=== PATIENT | female | born 1935 | race Caucasian/White ===

== ENCOUNTER → 2017-10-22 | Day surgery (SDC) | payer MEDICARE, BC ==
[~2017-10-22] VITALS: Ht 162.6 cm; Wt 75.0 kg
[~2017-10-22] MED LIST: APIX5TAB PO; CYCLOPENTOLATE HCL 1% OPHT SOLN 2 ML BTL ONE; DENO60P SQ; DEXAMETHASONE SOD PHOS 4 MG/ML VIAL IV ONE; EPINEPHrine HCL PF/SF (1:1000) 1 MG/ML AMP I-OCULAR ONE; EPINEPHrine-Lidocaine/BSS (PF/SF) 4-120 mg/16 mL OPTH SYR LEFT EYE ONE; KETO0.5S2 LEFT EYE; LACTATED RINGER'S 1000 ML IV PRN; LEVO.075 PO; LIDOCAINE HCL 1% PF 5 ML SYRINGE OTHER ONE; METH2.5T PO; METOPROLOL TARTRATE 25 MG TAB PO PRN; ONDANSETRON HCL 4 MG/2 ML VIAL IV PUSH ONE; PHENYLEPH/NS 1000 MCG/10 ML SYR IV ONE; PHENYLEPHRINE HCL 10% OPTH SOLN 5 ML BTL ONE; PRED1SUS LEFT EYE; PROPOFOL 200 MG/20 ML AMP IV ONE; ROCURONIUM INJ 50 MG/5 ML SYRINGE IV PUSH ONE; SODIUM CHLORID 0.9% 500 ML INJ 500 ML IV ONE; SODIUM CHLORID 0.9% 500 ML INJ 500 ML ONE; SUGAMMADEX SODIUM 200 MG/2 ML VIAL IV PUSH ONE; TETRACAINE 0.5% OPTH SOLN 4 ML BTL ONE; TOBRAMYCIN/DEXAMETHASONE OPTH OINT 3.5 GM TUBE ONE; TROPICAMIDE 1% OPHT SOLN 15 ML BTL ONE; VIGA0.5D LEFT EYE; VISCOAT OPHT IRRIG SOLN 0.75 ML SYRINGE ONE; ePHEDrine/NS 25 MG/5 ML SYRINGE IV ONE
[2017-10-22] MEDS: CYCLOPENTOLATE HCL 1% OPHT SOLN 2 ML BTL LEFT EYE SCH ×3 (07:28→07:38)
[2017-10-22] MEDS: TROPICAMIDE 1% OPHT SOLN 15 ML BTL LEFT EYE SCH ×3 (07:28→07:38)
[2017-10-22] MEDS: PHENYLEPHRINE HCL 10% OPTH SOLN 5 ML BTL LEFT EYE SCH ×3 (07:28→07:38)
[2017-10-22] MEDS: TETRACAINE 0.5% OPTH SOLN 4 ML BTL LEFT EYE SCH ×3 (07:28→07:38)
--- NOTE | 2017-10-22 09:07 | PD.OP ---
Operative Report Date of Surgery: Oct 22, 2017 Preoperative Diagnosis: (1) Nuclear sclerotic cataract of left eye Postoperative Diagnosis: (1) Pseudophakia of left eye Procedure: phacoemulsification and intraocular lens implant left eye Anesthesia: General Surgeon: Yesica Valdivia Coin Machine Collector Supervisor(s): none Operation and Findings: Patient was consented for surgery and taken back to the operating room. She was put under general anesthesia and prepped and draped in the usual sterile fashion for ophthalmic surgery. A wire lid speculum was placed in the left eye. A paracentesis incision was created at the 5 o'clock position on the limbus. Vision blue dye, intracameral epishugarcaine, and viscoelastic was injected into the anterior chamber. The main incision was created at the 2 o'clock position on the limbus with a 2.4 mm keratome. A continuous curvilinear capsulorrhexis was made on the anterior lens capsule. Hydrodissection was used to separate the lens from the capsule. Phacoemulsification was used to remove the lens nucleus material. Irrigation and aspiration was used to remove the remaining cortical material. The lens implant ([id number] [id number] SN [id number]) was placed in the capsular bag. Viscoelastic was removed with irrigation and aspiration. The incisions were irrigated and the paracentesis was found to be leaking. A 10-0 nylon suture was placed inferior. Tobradex ointment and a shield were placed on the left eye. The patient was sent to PACU in stable condition. Yesica Valdivia MD Oct 22, 2017 09:07
[2017-10-22 11:15] VITALS: BP 111/55; PULSE 89; RESP 16; TEMP 97.7; O2SAT 94
== END | disposition home or self-care (01) ==
LOC: PHSDC 06:26
PROVIDERS: ATTEND Ophthalmology
DX: H25.12 Age-related nuclear cataract, left eye (principal)
CPT/HCPCS: 00142; 66984; J0171; J1100; J2370; J2405; J3010; J7040; V2632

== ENCOUNTER 2017-10-28 14:01 | Inpatient (IN) | payer MEDICARE, BC ==
[~2017-10-28 14:01] MED LIST changes: -CYCLOPENTOLATE HCL 1% OPHT SOLN 2 ML BTL ONE; -DEXAMETHASONE SOD PHOS 4 MG/ML VIAL IV ONE; -EPINEPHrine HCL PF/SF (1:1000) 1 MG/ML AMP I-OCULAR ONE; -EPINEPHrine-Lidocaine/BSS (PF/SF) 4-120 mg/16 mL OPTH SYR LEFT EYE ONE; -KETO0.5S2 LEFT EYE; -LACTATED RINGER'S 1000 ML IV PRN; -LIDOCAINE HCL 1% PF 5 ML SYRINGE OTHER ONE; -METOPROLOL TARTRATE 25 MG TAB PO PRN; -ONDANSETRON HCL 4 MG/2 ML VIAL IV PUSH ONE; -PHENYLEPH/NS 1000 MCG/10 ML SYR IV ONE; -PHENYLEPHRINE HCL 10% OPTH SOLN 5 ML BTL ONE; -PRED1SUS LEFT EYE; -PROPOFOL 200 MG/20 ML AMP IV ONE; -ROCURONIUM INJ 50 MG/5 ML SYRINGE IV PUSH ONE; -SODIUM CHLORID 0.9% 500 ML INJ 500 ML IV ONE; -SODIUM CHLORID 0.9% 500 ML INJ 500 ML ONE; -SUGAMMADEX SODIUM 200 MG/2 ML VIAL IV PUSH ONE; -TETRACAINE 0.5% OPTH SOLN 4 ML BTL ONE; -TOBRAMYCIN/DEXAMETHASONE OPTH OINT 3.5 GM TUBE ONE; -TROPICAMIDE 1% OPHT SOLN 15 ML BTL ONE; -VIGA0.5D LEFT EYE; -VISCOAT OPHT IRRIG SOLN 0.75 ML SYRINGE ONE; -ePHEDrine/NS 25 MG/5 ML SYRINGE IV ONE
[2017-10-28 14:16] VITALS: BP 124/84; PULSE 99; RESP 24; TEMP 98.2; O2SAT 99
--- NOTE | 2017-10-28 15:39 | RADRPT ---
EXAM DATE/TIME: 10/28/2017 15:19 [place] COMPARISON: CHEST SINGLE AP, March 28, 2016, 5:30. INDICATIONS : Cough and congestion. MEDICAL HISTORY : Carcinoma, lung. SURGICAL HISTORY : Lobectomy. Hysterectomy. RT ORIF 03/28/16 ENCOUNTER: Initial ACUITY: 2 days PAIN SCORE: 0/10 LOCATION: Bilateral chest FINDINGS: There appears to be increased interstitial markings bilaterally suggestive of pulmonary edema versus pneumonia. There is pulmonary venous congestion. The heart size is diffusely enlarged but stable comp ared to the prior exam. No significant pleural effusions are seen. CONCLUSION: 1. Increased interstitial markings bilaterally suggestive of pulmonary edema versus pneumonia. 2. Stable cardiomegaly Subhash Garcia MD on October 28, 2017 at 15:37 Board Certified Radiologist. This report was verified electronically.
--- NOTE | 2017-10-28 15:59 | PD ---
HPI Chief Complaint: Respiratory Symptoms Time Seen by Provider: 15:43 Travel History International Travel<30 days: No Contact w/Intl Traveler<30days: No Traveled to known affect area: No History of Present Illness HPI 82-year-old female with PMH of CHF, NSTEMI, A. fib with RVR, lung CA, right eye blindness presents to the ED by EMS for evaluation of 1 week history of fatigue , shortness of breath, worsening lower extremity edema. The patient states that symptoms onset after she was intubated for cataract surgery last week. She denies fever, chills, chest pain, palpitations, abdominal pain, nausea, vomiting, dysuria. She states that she hasn't had a bowel movement in the last few days but states that this is likely due to low oral intake. She does not use oxygen at home. She is followed by Dr. Vela, PCP. [facility] Past Medical History Arthritis: Yes Asthma: No Autoimmune Disease: No Anxiety: Yes Depression: Yes (when she firkatja moved in july) Cancer: Yes (LUNG CA, SKIN CA) Cardiovascular Problems: Yes (HEART FAILURE, HEART MURMUR, A. FIB, PVD, CHF, [place] (2016)) Chemotherapy: No COPD: No Cerebrovascular Accident: No Diabetes: No Diminished Hearing: Yes (CHEHALIS) Endocrine: Yes (HYPOTHYROIDISM) Gastrointestinal Disorders: Yes (GERD) Genitourinary: Yes (PRIMARY ORDERED BLADDER EVALUATUION PT UNSURE OF REASON) Hepatitis: No Hiatal Hernia: Yes Immune Disorder: No Musculoskeletal: Yes (PSORIATIC/RHEUMATOID/OSTEOARTHRITIS, LOW BACK PAIN & FRACTURES) Neurologic: Yes (TIA, NEUROPATHY (R/T ARTHRTIS)) Psychiatric: No Reproductive: No Respiratory: Yes (LUNG CA; LOBECTOMY L LUNG, COPD) Migraines: Yes (as a younger child but none in adult blum) Radiation Therapy: No Seizures: No Sickle Cell Disease: No Sleep Apnea: No Thyroid Disease: Yes (HYPOTHYROIDISM) ?: Not Past Surgical History Abdominal Surgery: No AICD: No Body Medical Devices: DERRELL IN RIGHT LEG Cardiac Surgery: No Ear Surgery: No Endocrine Surgery: Yes (THYROIDECTOMY) Eye Surgery: No Genitourinary Surgery: No Gynecologic Surgery: Yes (HYSTERECTOMY) Hysterectomy: Yes Joint Replacement: No Oral Surgery: No Pacemaker: No Thoracic Surgery: Yes (LOBECTOMY L LUNG CA) Other Surgery: Yes (SKIN CANCER REMOVAL) Social History Alcohol Use: No Tobacco Use: No Substance Use: No Allergies-Medications (Allergen,Severity, Reaction): Coded Allergies: Sulfa (Sulfonamide Antibiotics) (Verified Allergy, Severe, Hives, 10/28/17) bacitracin (Verified Allergy, Severe, RASH-PT DOESN'T REMEMBER, 10/28/17) diatrizoate meglumine (Verified Allergy, Severe, HIVES, 10/28/17) gadobenic acid (Verified Allergy, Severe, HIVES, 10/28/17) gadodiamide (Verified Allergy, Severe, HIVES, 10/28/17) gadoteridol (Verified Allergy, Severe, HIVES, 10/28/17) gramicidin D (Verified Allergy, Severe, RASH, 10/28/17) iodixanol (Verified Allergy, Severe, HIVES, 10/28/17) iohexol (Verified Allergy, Severe, HIVES, 10/28/17) neomycin (Verified Allergy, Severe, RASH, 10/28/17) penicillin G (Verified Allergy, Severe, RASH HIVES, 10/28/17) polymyxin B (Verified Allergy, Severe, RASH, 10/28/17) NSAIDS (Non-Steroidal Anti-Inflamma (Verified Adverse Reaction, Severe, R/ T HIATAL HERNIA, 10/28/17) Reported Meds & Prescriptions Reported Meds & Active Scripts Active Reported Eliquis (Apixaban) 5 Mg Tab 5 Mg PO BID Prolia Inj (Denosumab) 60 Mg/Ml Inj 60 Mg SQ Q180D Methotrexate 2.5 Mg Tab 2.5 Mg PO Q7D Synthroid (Levothyroxine Sodium) 75 Mcg Tab 75 Mcg PO DAILY Review of Systems Except as stated in HPI: all other systems reviewed are Neg Physical Exam Narrative GENERAL: Well-nourished, well-developed white female in no acute distress. SKIN: Focused skin assessment warm/dry. HEAD: Normocephalic. EYES: No scleral icterus. No injection or drainage. NECK: Supple, trachea midline. No JVD or lymphadenopathy. CARDIOVASCULAR: Irregularly irregular rate and rhythm without murmurs, gallops, or rubs. RESPIRATORY: Breath sounds with rhonchi bilaterally. No accessory muscle use. GASTROINTESTINAL: Abdomen soft, non-tender, nondistended. Active bowel sounds. MUSCULOSKELETAL: No cyanosis. 2+ pitting edema to the knees bilaterally. BACK: Nontender without obvious deformity. No CVA tenderness. Data Data Last Documented VS Vital Signs Date Time Temp Pulse Resp B/P (MAP) Pulse Ox O2 Delivery O2 Flow Rate FiO2 10/28/17 18:42 97 Nasal Cannula 2.00 10/28/17 18:42 80 16 133/62 (85) 10/28/17 14:16 98.2 Orders Orders Complete Blood Count With Diff (10/28/17 14:54) Basic Metabolic Panel (Bmp) (10/28/17 14:54) Chest, Pa & Lat (10/28/17 14:54) Iv Access Insert/Monitor (10/28/17 14:54) Ecg Monitoring (10/28/17 14:54) Oxygen Administration (10/28/17 14:54) Oximetry (10/28/17 14:54) B-Type Natriuretic Peptide (10/28/17 15:51) Act Partial Throm Time (Ptt) (10/28/17 15:51) Prothrombin Time / Inr (Pt) (10/28/17 15:51) Magnesium (Mg) (10/28/17 15:51) Ckmb (Isoenzyme) Profile (10/28/17 15:51) Troponin I (10/28/17 15:51) Urinalysis - C+S If Indicated (10/28/17 15:51) Electrocardiogram (10/28/17 15:51) Sodium Chloride 0.9% Flush (Ns Flush) (10/28/17 16:00) Albuterol-Ipratropium Neb (Duoneb Neb) (10/28/17 16:00) CKMB (10/28/17 14:58) CKMB% (10/28/17 14:58) Admit Order (Ed Use Only) (10/28/17 19:23) Furosemide Inj (Lasix Inj) (10/28/17 19:30) Labs Laboratory Tests Test 10/28/17 14:58 White Blood Count 7.1 TH/MM3 Red Blood Count 4.91 MIL/MM3 Hemoglobin 16.6 GM/DL Hematocrit 48.1 % Mean Corpuscular Volume 97.9 FL Mean Corpuscular Hemoglobin 33.7 PG Mean Corpuscular Hemoglobin Concent 34.5 % Red Cell Distribution Width 17.5 % Platelet Count 236 TH/MM3 Mean Platelet Volume 8.8 FL Neutrophils (%) (Auto) 71.0 % Lymphocytes (%) (Auto) 13.5 % Monocytes (%) (Auto) 11.9 % Eosinophils (%) (Auto) 2.9 % Basophils (%) (Auto) 0.7 % Neutrophils # (Auto) 5.0 TH/MM3 Lymphocytes # (Auto) 1.0 TH/MM3 Monocytes # (Auto) 0.8 TH/MM3 Eosinophils # (Auto) 0.2 TH/MM3 Basophils # (Auto) 0.0 TH/MM3 CBC Comment DIFF FINAL Differential Comment Blood Urea Nitrogen 21 MG/DL Creatinine 0.90 MG/DL Random Glucose 82 MG/DL Calcium Level 10.5 MG/DL Sodium Level 135 MEQ/L Potassium Level 5.6 MEQ/L Chloride Level 106 MEQ/L Carbon Dioxide Level 23.0 MEQ/L Anion Gap 6 MEQ/L Estimat Glomerular Filtration Rate 60 ML/MIN Magnesium Level 1.9 MG/DL Total Creatine Kinase 147 U/L Creatine Kinase MB 4.2 NG/ML Troponin I 0.06 NG/ML B-Type Natriuretic Peptide 481 PG/ML MDM Medical Decision Making Medical Screen Exam Complete: Yes Emergency Medical Condition: Yes Differential Diagnosis CHF exacerbation versus pneumonia versus GI versus ACS versus other Narrative Course 82-year-old female with PMH of CHF, NSTEMI, A. fib with RVR, lung CA, right eye blindness presents to the ED by EMS for evaluation of 1 week history of fatigue , shortness of breath, worsening lower extremity edema. The patient states that symptoms onset after she was intubated for cataract surgery last week. She denies fever, chills, chest pain, palpitations, abdominal pain, nausea, vomiting, dysuria. She does not use oxygen at home. She is followed by Dr. Vela, PCP. Patient afebrile, pulse 99, respiratory rate 24, O2 sats 99% on room air on presentation. On exam this is a pleasant obese white female in no acute distress. She is speaking in short sentences. She does have coarse breath sounds bilaterally and 2+ pitting edema to the knees bilaterally. EKG rate 96, A. fib. LVH. No acute ST changes. Reviewed by Dr. Cummings. CXR: Increased interstitial markings bilaterally suggestive of pulmonary edema versus pneumonia. Stable cardiomegaly. Cardiac enzymes: CK-MB 4.2. Troponin 0.06. BNP 481. 3 14:58 Calcium Level 10.5 H Patient was administered 40 mg of Lasix IV. I discussed the results of the workup with the patient and her family. They're agreeable to admission. Discussed the patient with Dr. Tucker who agrees to accept the patient to the medicine service. Please see medicine notes for disposition. Janice Murphy Oct 28, 2017 15:59
[2017-10-28] MEDS ORDERED: RESP: ALBUTEROL 2.5 MG/IPRATROPIUM 0.5 MG NEB (SCH) INH ONE (16:00)
[2017-10-28] MEDS ORDERED: SODIUM CHLORIDE 0.9% FLUSH 10 ML FLUSH IVF PRN (16:00)
[2017-10-28 16:17] LABS: CALCIUM 10.5 MG/DL (8.5-10.1); CREATININE 0.9 MG/DL (0.50-1.00)
[2017-10-28 16:21] LABS: BASOPHIL % 0.7 % (0.0-2.0); EOSINOPHIL # 0.2 TH/MM3 (0-0.4); EOSINOPHIL % 2.9 % (0.0-4.0); HEMATOCRIT 48.1 % (35.0-46.0); HEMOGLOBIN 16.6 GM/DL (11.6-15.3); LYMPH % 13.5 % (9.0-44.0); MEAN CELL VOLUME 97.9 FL (80.0-100.0); MEAN CORPUSCULAR HEMOGLOBIN 33.7 PG (27.0-34.0); MEAN CORPUSCULAR HGB CONC 34.5 % (32.0-36.0); MEAN PLATELET VOLUME 8.8 FL (7.0-11.0); MONO % 11.9 % (0.0-8.0); MONOCYTE # 0.8 TH/MM3 (0-0.9); PLATELET COUNT 236 TH/MM3 (150-450); RED BLOOD COUNT 4.91 MIL/MM3 (4.00-5.30); RED CELL DISTRIBUTION WIDTH 17.5 % (11.6-17.2); WHITE BLOOD COUNT 7.1 TH/MM3 (4.0-11.0)
[2017-10-28 17:36] LABS: MAGNESIUM 1.9 MG/DL (1.5-2.5)
[2017-10-28 17:38] LABS: TROPONIN I 0.06 NG/ML (0.02-0.05)
[2017-10-28 18:42] VITALS: BP 133/62; PULSE 80; RESP 16; O2SAT 100
[2017-10-28] MEDS ORDERED: FUROSEMIDE 40 MG/4 ML VIAL IV PUSH ONE (19:30)
[2017-10-28 19:56] VITALS: BP 133/62; PULSE 88; RESP 24; O2SAT 96
[2017-10-28] MEDS ORDERED: SODIUM CHLORIDE 0.9% FLUSH 10 ML FLUSH IV FLUSH PRN (20:30)
[2017-10-28 21:39] VITALS: BP 135/58; PULSE 100; RESP 16; TEMP 98.6; O2SAT 95
[2017-10-28] MEDS ORDERED: VIGA0.5D LEFT EYE (21:55)
[2017-10-28] MEDS ORDERED: PRED1SUS LEFT EYE (21:58)
[2017-10-28] MEDS ORDERED: KETO0.5S2 LEFT EYE (21:59)
--- NOTE | 2017-10-28 22:14 | HHI.HP ---
[facility] Maricruz Vela MD Admission Diagnosis CHF exacerbation, elevated troponin Diagnoses: Travel History International Travel<30 Days: No Contact w/Intl Traveler <30 Da: No Traveled to Known Affected Are: No History of Present Illness 82-year-old female with a past medical history significant for history of lung cancer, rheumatoid and psoriatic arthritis, hypothyroidism, atrial fibrillation anticoagulated on Eliquis and history of NSTEMI presents to the emergency department for the evaluation of increasing bilateral lower extremity edema with associated shortness of breath. The patient reports she had general anesthesia for a cataract surgery on Friday and since that time she has been having these symptoms. She also endorses an associated nonproductive cough. She was seen in the emergency department yesterday at [facility] where several x-rays were done but she reports she was not given any medications or prescriptions. Last echo done in 2015 showed an EF of 50-60%. The patient denies any chest pain. Denies nausea/vomiting/diarrhea. Denies increasing weakness or lateralizing signs/symptoms. Review of Systems Except as stated in HPI: all other systems reviewed are Neg Past Family Social History Past Medical History History of lung cancer Rheumatoid arthritis Psoriatic arthritis Hypothyroidism History of NSTEMI A. fib anticoagulated on Eliquis Past Surgical History Left lobectomy for lung cancer Bilateral oophorectomy Left cataract surgery Reported Medications Reported Meds & Active Scripts Active Reported Ketorolac Opth Drops 0.5% Drops 1 Drop LEFT EYE QID 28 Days Pred Forte Opth 1% (Prednisolone Acetate Opth 1%) 1% Susp 1 Drop LEFT EYE QID 28 Days Vigamox Opth Drops (Moxifloxacin Opth Drops) 0.5 % Soln 1 Drop LEFT EYE QID Eliquis (Apixaban) 5 Mg Tab 5 Mg PO BID Prolia Inj (Denosumab) 60 Mg/Ml Inj 60 Mg SQ Q180D Methotrexate 2.5 Mg Tab 2.5 Mg PO Q7D Synthroid (Levothyroxine Sodium) 75 Mcg Tab 75 Mcg PO DAILY Allergies: Coded Allergies: Sulfa (Sulfonamide Antibiotics) (Verified Allergy, Severe, Hives, 3/6/18) bacitracin (Verified Allergy, Severe, RASH-PT DOESN'T REMEMBER, 10/28/17) diatrizoate meglumine (Verified Allergy, Severe, HIVES, 10/28/17) gadobenic acid (Verified Allergy, Severe, HIVES, 10/28/17) gadodiamide (Verified Allergy, Severe, HIVES, 10/28/17) gadoteridol (Verified Allergy, Severe, HIVES, 10/28/17) gramicidin D (Verified Allergy, Severe, RASH, 10/28/17) iodixanol (Verified Allergy, Severe, HIVES, 10/28/17) iohexol (Verified Allergy, Severe, HIVES, 10/28/17) neomycin (Verified Allergy, Severe, RASH, 10/28/17) penicillin G (Verified Allergy, Severe, RASH HIVES, 10/28/17) polymyxin B (Verified Allergy, Severe, RASH, 10/28/17) NSAIDS (Non-Steroidal Anti-Inflamma (Verified Adverse Reaction, Severe, R/ T HIATAL HERNIA, 10/28/17) Family History Mother with CAD/DM Social History Quit smoking 13 years ago. Denies alcohol or illicit drugs. Physical Exam Vital Signs Vital Signs Date Time Temp Pulse Resp B/P (MAP) Pulse Ox O2 Delivery O2 Flow Rate FiO2 10/28/17 21:39 98.6 100 16 135/58 (83) 95 10/28/17 21:16 10/28/17 19:56 88 24 133/62 (85) 96 Nasal Cannula 2.00 10/28/17 18:42 97 Nasal Cannula 2.00 10/28/17 18:42 80 16 133/62 (85) 100 Nasal Cannula 2.00 10/28/17 18:42 80 16 133/62 (85) 100 Nasal Cannula 2.00 10/28/17 14:19 96 Nasal Cannula 2.00 10/28/17 14:16 98.2 99 24 124/84 (97) 99 Physical Exam GENERAL: female sitting up in bed SKIN: No rashes, ecchymoses or lesions. Cool and dry. HEAD: Atraumatic. Normocephalic. No temporal or scalp tenderness. EYES: Pupils equal round and reactive. Extraocular motions intact. No scleral icterus. No injection or drainage. ENT: Nose without bleeding, purulent drainage or septal hematoma. Throat without erythema, tonsillar hypertrophy or exudate. Uvula midline. Airway patent. NECK: Trachea midline. No JVD or lymphadenopathy. Supple, nontender, no meningeal signs. CARDIOVASCULAR: Regular rate and rhythm without murmurs, gallops, or rubs. RESPIRATORY: Breath sounds equal bilaterally. Positive rhonchi. Use of accessory muscles. GASTROINTESTINAL: Abdomen soft, non-tender, nondistended. No hepato-splenomegaly , or palpable masses. No guarding. MUSCULOSKELETAL: 2+ pitting edema bilaterally. No calf tenderness. NEUROLOGICAL: Awake and alert. Cranial nerves II through XII intact. Motor and sensory grossly within normal limits. Normal speech. Laboratory Laboratory Tests Test 10/28/17 14:58 10/28/17 21:36 White Blood Count 7.1 Red Blood Count 4.91 Hemoglobin 16.6 Hematocrit 48.1 Mean Corpuscular Volume 97.9 Mean Corpuscular Hemoglobin 33.7 Mean Corpuscular Hemoglobin Concent 34.5 Red Cell Distribution Width 17.5 Platelet Count 236 Mean Platelet Volume 8.8 Neutrophils (%) (Auto) 71.0 Lymphocytes (%) (Auto) 13.5 Monocytes (%) (Auto) 11.9 Eosinophils (%) (Auto) 2.9 Basophils (%) (Auto) 0.7 Neutrophils # (Auto) 5.0 Lymphocytes # (Auto) 1.0 Monocytes # (Auto) 0.8 Eosinophils # (Auto) 0.2 Basophils # (Auto) 0.0 CBC Comment DIFF FINAL Differential Comment Blood Urea Nitrogen 21 Creatinine 0.90 Random Glucose 82 Calcium Level 10.5 Sodium Level 135 Potassium Level 5.6 Chloride Level 106 Carbon Dioxide Level 23.0 Anion Gap 6 Estimat Glomerular Filtration Rate 60 Magnesium Level 1.9 Total Creatine Kinase 147 Creatine Kinase MB 4.2 Troponin I 0.06 B-Type Natriuretic Peptide 481 Result Diagram: 10/28/17 1458 10/28/17 1458 Caprini VTE Risk Assessment Caprini VTE Risk Assessment: Mod/High Risk (score >= 2) Caprini Risk Assessment Model Point Value = 1 Point Value = 2 Point Value = 3 Point Value = 5 Age 41-60 Minor surgery BMI > 25 kg/m2 Swollen legs Varicose veins or History of unexplained or recurrent spontaneous Oral contraceptives or hormone replacement Sepsis (< 1 month) Serious lung disease, including pneumonia (< 1 month) Abnormal pulmonary function Acute myocardial infarction Congestive heart failure (< 1 month) History of inflammatory bowel disease Medical patient at bed rest Age 61-74 Arthroscopic surgery Major open surgery (> 45 min) Laparoscopic surgery (> 45 min) Malignancy Confined to bed (> 72 hours) Immobilizing plaster cast Central venous access Age >= 75 History of VTE Family history of VTE Factor V Leiden Prothrombin [id number] Lupus anticoagulant Anticardiolipin antibodies Elevated serum homocysteine Heparin-induced thrombocytopenia Other congenital or acquired thrombophilia Stroke (< 1 month) Elective arthroplasty Hip, pelvis, or leg fracture Acute spinal cord injury (< 1 month) Prophylaxis Regimen Total Risk Factor Score Risk Level Prophylaxis Regimen 0-1 Low Early ambulation 2 Moderate Order ONE of the following: *Sequential Compression Device (SCD) *Heparin 5000 units SQ BID 3-4 Higher Order ONE of the following medications: *Heparin 5000 units SQ TID *Enoxaparin/Lovenox 40 mg SQ daily (WT < 150 kg, CrCl > 30 mL/min) *Enoxaparin/Lovenox 30 mg SQ daily (WT < 150 kg, CrCl > 10-29 mL/min) *Enoxaparin/Lovenox 30 mg SQ BID (WT < 150 kg, CrCl > 30 mL/min) AND/OR *Sequential Compression Device (SCD) 5 or more Highest Order ONE of the following medications: *Heparin 5000 units SQ TID (Preferred with Epidurals) *Enoxaparin/Lovenox 40 mg SQ daily (WT < 150 kg, CrCl > 30 mL/min) *Enoxaparin/Lovenox 30 mg SQ daily (WT < 150 kg, CrCl > 10-29 mL/min) *Enoxaparin/Lovenox 30 mg SQ BID (WT < 150 kg, CrCl > 30 mL/min) AND *Sequential Compression Device (SCD) Assessment and Plan Assessment and Plan Assessment/plan: 1. Shortness of breath/bilateral lower extremity edema Patient does not report history of CHF however last echo was in 2016 BNP elevated at 481 Chest x-ray significant for pulmonary vascular congestion, personally reviewed IV Lasix Repeat echo pending IF echo shows new onset CHF, patient would benefit from cardiology consult 2. Elevated troponin EKG significant for atrial fibrillation without ST segment elevation or depression, personally reviewed Troponin 0.06 ACS rule out pending; serial troponin/EKGs 3. Atrial fibrillation Holding Eliquis until ACS rule out complete 4. Rheumatoid/psoriatic arthritis Patient takes methotrexate weekly 5. Hypothyroidism Continue home Synthroid FEN NPO Electrolytes: Patient with hyperkalemia however sample hemolyzed, follow-up BMP Heparin Physician Certification 2 Midnight Certification Type: Admission for Inpatient Services Order for Inpatient Services The services are ordered in accordance with Medicare regulations or non- Medicare payer requirements, as applicable. In the case of services not specified as inpatient-only, they are appropriately provided as inpatient services in accordance with the 2-midnight benchmark. Estimated LOS (days): 2 2 days is the estimated time the patient will need to remain in the hospital, assuming treatment plan goals are met and no additional complications. Post-Hospital Plan: Not yet determined Shawna Tuckre MD Oct 28, 2017 22:14
[2017-10-28 22:26] LABS: AUTOMATED NEUTROPHIL # 6.1 TH/MM3 (1.8-7.7); BASOPHIL # 0.1 TH/MM3 (0-0.2); BASOPHIL % 0.7 % (0.0-2.0); EOSINOPHIL # 0.2 TH/MM3 (0-0.4); EOSINOPHIL % 2.1 % (0.0-4.0); HEMATOCRIT 47.7 % (35.0-46.0); HEMOGLOBIN 16.4 GM/DL (11.6-15.3); LYMPH % 10.4 % (9.0-44.0); LYMPHOCYTE # 0.8 TH/MM3 (1.0-4.8); MEAN CELL VOLUME 99.2 FL (80.0-100.0); MEAN CORPUSCULAR HEMOGLOBIN 34.1 PG (27.0-34.0); MEAN CORPUSCULAR HGB CONC 34.4 % (32.0-36.0); MEAN PLATELET VOLUME 8.8 FL (7.0-11.0); MONO % 8.8 % (0.0-8.0); MONOCYTE # 0.7 TH/MM3 (0-0.9); PLATELET COUNT 234 TH/MM3 (150-450); RED BLOOD COUNT 4.81 MIL/MM3 (4.00-5.30); RED CELL DISTRIBUTION WIDTH 17.1 % (11.6-17.2); WHITE BLOOD COUNT 7.8 TH/MM3 (4.0-11.0)
[2017-10-28 22:27] LABS: TROPONIN I 0.08 NG/ML (0.02-0.05)
[2017-10-28] MEDS: SODIUM CHLORIDE 0.9% FLUSH 10 ML FLUSH IV FLUSH SCH (22:37)
[2017-10-28] MEDS: RESP: ALBUTEROL 2.5 MG/IPRATROPIUM 0.5 MG NEB (PRN) NEB (22:55)
[2017-10-28 23:04] LABS: INTERNATIONAL NORMALIZED RATIO 1.2 RATIO; PROTHROMBIN TIME - PATIENT 12.6 SEC (9.8-11.6)
[2017-10-29] VITALS (11 sets, daily range): BP systolic 113–128; BP diastolic 58–85; PULSE 77–110; RESP 14–24; TEMP 97.4–98.6; O2SAT 95–99
[2017-10-29] MEDS: RESP: ALBUTEROL 2.5 MG/IPRATROPIUM 0.5 MG NEB (PRN) NEB (04:02)
[2017-10-29 04:24] LABS: TROPONIN I 0.09 NG/ML (0.02-0.05)
[2017-10-29 04:28] LABS: BICARBONATE 27.3 MEQ/L (21.0-32.0); CALCIUM 10.4 MG/DL (8.5-10.1); CREATININE 0.96 MG/DL (0.50-1.00)
[2017-10-29] MEDS: LEVOTHYROXINE SODIUM 75 MCG TAB PO SCH (05:26)
[2017-10-29] MEDS: NYSTATIN 100,000 U/GM PWD 15 GM BTL TOPICAL SCH ×3 (05:26→22:37)
[2017-10-29] MEDS: HEPARIN SODIUM - SQ 10,000 UNITS/ML VIAL SQ SCH ×2 (05:27→13:37)
[2017-10-29] MEDS ORDERED: KETOROLAC TROMETHAMINE 0.5% OPHT SOLN 5 ML BTL LEFT EYE SCH (09:00)
[2017-10-29] MEDS: FUROSEMIDE 40 MG/4 ML VIAL IVP SCH ×2 (10:16→18:39)
[2017-10-29] MEDS: SODIUM CHLORIDE 0.9% FLUSH 10 ML FLUSH IV FLUSH SCH ×2 (10:17→22:32)
[2017-10-29] MEDS: MOXIFLOXACIN 0.5% OPHT SOLN 3 ML BTL LEFT EYE SCH ×4 (10:17→22:37)
[2017-10-29] MEDS: prednisoLONE ACETATE 1% OPHT SUSP 5 ML BTL LEFT EYE SCH ×4 (10:18→22:37)
--- NOTE | 2017-10-29 10:57 | HHI.PR ---
Subjective Remarks Follow-up shortness of breath and bilateral lower extremity edema. Still with shortness of breath denies chest pain. Discussed with RN Objective Vitals Vital Signs Date Time Temp Pulse Resp B/P (MAP) Pulse Ox O2 Delivery O2 Flow Rate FiO2 10/29/17 07:09 97.7 96 22 128/58 (81) 96 10/29/17 05:13 98 Nasal Cannula 2.00 10/29/17 04:26 98.2 77 16 113/72 (86) 97 10/29/17 04:00 109 10/29/17 01:18 98.6 98 14 117/63 (81) 99 10/28/17 21:39 98.6 100 16 135/58 (83) 95 10/28/17 21:16 10/28/17 19:56 88 24 133/62 (85) 96 Nasal Cannula 2.00 10/28/17 18:42 97 Nasal Cannula 2.00 10/28/17 18:42 80 16 133/62 (85) 100 Nasal Cannula 2.00 10/28/17 18:42 80 16 133/62 (85) 100 Nasal Cannula 2.00 10/28/17 14:19 96 Nasal Cannula 2.00 10/28/17 14:16 98.2 99 24 124/84 (97) 99 I/O 10/28/17 10/28/17 10/28/17 10/29/17 10/29/17 10/29/17 07:00 15:00 23:00 07:00 15:00 23:00 Intake Total 35 ml Balance 35 ml Intake Oral 35 ml # Voids 7 Result Diagram: 10/28/17 2136 10/29/17 0330 Imaging Last Impressions Chest X-Ray 10/28/17 1454 Signed Impressions: Service Date/Time: Saturday, October 28, 2017 15:19 - CONCLUSION: 1. Increased interstitial markings bilaterally suggestive of pulmonary edema versus pneumonia. 2. Stable cardiomegaly Subhash Garcia MD Objective Remarks GENERAL: female sitting up in bed SKIN: No rashes, ecchymoses or lesions. Cool and dry. CARDIOVASCULAR: Irregularly irregular RESPIRATORY: Breath sounds equal bilaterally. Expiratory wheezes noted GASTROINTESTINAL: Abdomen soft, non-tender, nondistended. No guarding. MUSCULOSKELETAL: 2+ pitting edema bilaterally. No calf tenderness. NEUROLOGICAL: Awake and alert. Cranial nerves II through XII intact. Motor and sensory grossly within normal limits. Normal speech. Procedures none A/P Problem List: (1) COPD exacerbation ICD Code: J44.1 - Chronic obstructive pulmonary disease with (acute) exacerbation Assessment and Plan 1. Shortness of breath/bilateral lower extremity edema likely from acute onset diastolic heart failure. EF 65% but with LVH. Continue IV diuresis with Lasix 2. Elevated troponin. Denies chest pain. Cardiology has been consulted 3. Atrial fibrillation with RVR. Respiratory blood pressure started to resume Eliquis 4. Rheumatoid/psoriatic arthritis. Patient takes methotrexate weekly 5. Hypothyroidism. Continue home Synthroid follow-up TSH 6. Recent left cataract surgery with implants. Continue eyedrops and consult patient's segment assembler DVT prophylaxis with Wes Villareal MD Oct 29, 2017 10:57
[2017-10-29] MEDS: methylPREDNISolone SOD SUCC 40 MG/1 ML VIAL IV PUSH SCH ×3 (13:37→22:32)
[2017-10-29] MEDS: KETOROLAC TROMETHAMINE 0.5% LEFT EYE SCH ×3 (13:38→22:37)
[2017-10-29] MEDS: RESP: ALBUTEROL 2.5 MG/IPRATROPIUM 0.5 MG NEB (SCH) NEB ×3 (13:55→19:10)
--- NOTE | 2017-10-29 14:03 | EKG ---
Date Performed: 10/28/2017 Time Performed: 17:59:29 PTAGE: 82 years EKG: ATRIAL FIBRILLATION POSSIBLE LEFT VENTRICULAR HYPERTROPHY ST DEVIATION AND MODERATE T-WAVE ABNORMALITY, CONSIDER LATERAL ISCHEMIA LVH BY VOLTAGE ABNORMAL ECG PREVIOUS TRACING : 03/30/2016 13.08 DOCTOR: Rodrigo Deleon Interpretating Date/Time 10/29/2017 14:01:28
--- NOTE | 2017-10-29 14:39 | ECHRPT ---
Indication: HEART FAILURE CONCLUSIONS Normal left ventricular size. The left ventricular systolic function is hyperdynamic with an estimated ejection fraction in the ra nge of 65- 70%. Moderate concentric left ventricular hypertrophy. The left atrial size is severely dilated. The right atrial size is jnlafgmj-ek-ydskreho dilated. The interatrial septum not well visualized. The aortic root and proximal ascending aorta are not well visualized. Mild mitral valve regurgitation. Mitral annular calcification is present. Trace aortic valve regurgitation. There is mild-tomoderate tricuspid regurgitation. The estimated pulmonary arterial pressure is 38.2 mmHg. Trivial pulmonary valve regurgitation. The inferior vena cava was not well visualized. BP: 128 / 58 HR: 96 Rhythm: Atrial fibrillation, Atrial flut ter MEASUREMENTS (Male / Female) Normal Values Technical Quality:Fair 2D ECHO LV Diastolic Diameter PLAX 4.2 cm 4.2 - 5.9 / 3.9 - 5.3 cm LV Systolic Diameter PLAX 2.9 cm IVS Diastolic Thickness 2.0 cm 0.6 - 1.0 / 0.6 - 0.9 cm LVPW Diastolic Thickness 1.1 cm 0.6 - 1.0 / 0.6 - 0.9 cm LV Relative Wall Thickness 0.8 RV Internal Dim ED PLAX 3.3 cm LVOT Diameter 2.1 cm Aortic Root Diameter 3.1 cm LA Systolic Diameter LX 5.6 cm 3.0 - 4.0 / 2.7 - 3.8 cm M-MODE AV Cusp Separation MM 1.8 cm DOPPLER AV Peak Velocity 177.7 cm/s AV Peak Gradient 12.6 mmHg AV Mean Gradient 8.0 mmHg AV Velocity Time Integral 25.6 cm LVOT Peak Velocity 131.4 cm/s LVOT Peak Gradient 6.9 mmHg LVOT Velocity Time Integral 18.0 cm AV Area Cont Eq vti 2.4 cm AV Area Cont Eq pk 2.6 cm Mitral E Point Velocity 83.7 cm/s LV E' Lateral Velocity 11.8 cm/s Mitral E to LV E' Lateral Ratio 7.1 LV E' Septal Velocity 4.5 cm/s Mitral E to LV E' Septal Ratio 18.5 TR Peak Velocity 265.5 cm/s TR Peak Gradient 28.2 mmHg Right Atrial Pressure 10.0 mmHg Pulmonary Artery Systolic Pressu 38.2 mmHg Right Ventricular Systolic Press 38.2 mmHg PV Peak Velocity 73.9 cm/s PV Peak Gradient 2.2 mmHg FINDINGS LEFT VENTRICLE Normal left ventricular size. The left ventricular systolic function is hyperdynamic with an estimated ejection fraction in the ra nge of 65- 70%. Moderate concentric left ventricular hypertrophy. RIGHT VENTRICLE Normal right ventricular size and systolic function. LEFT ATRIUM The left atrial size is severely dilated. RIGHT ATRIUM The right atrial size is kqtvhxal-ne-vnnjprtb dilated. ATRIAL SEPTUM The interatrial septum not well visualized. AORTA The aortic root and proximal ascending aorta are not well visualized. MITRAL VALVE Mild mitral valve regurgitation. Mitral annular calcification is present. AORTIC VALVE Trace aortic valve regurgitation. TRICUSPID VALVE There is mild-tomoderate tricuspid regurgitation. The estimated pulmonary arterial pressure is 38.2 mmHg. PULMONARY VALVE Trivial pulmonary valve regurgitation. VESSELS The inferior vena cava was not well visualized. PERICARDIUM No pericardial effusion. Will Cooper MD (Electronically Signed) Final Date:29 October 2017 14:38
--- NOTE | 2017-10-29 14:49 | MB ---
cc: Will Cooper MD DATE OF CONSULT: REASON FOR CONSULTATION: Evaluation of shortness of breath. HISTORY OF PRESENT ILLNESS: This is an 82-year-old female, followed by my colleague, Dr. Massey. She has a history of COPD, having been a heavy smoker in the past, which she quit in 2003. She comes in now with increasing bilateral lower extremity edema and worsening shortness of breath. She had cataract surgery on Friday. She does not have any anginal pain. She has had significant weight gain. PAST MEDICAL HISTORY: Includes history of lung cancer, rheumatoid arthritis, psoriatic arthritis, hypothyroidism, chronic AFib, on Eliquis, previous left lobectomy, bilateral oophorectomy, and left cataract surgery. MEDICATIONS: Include Eliquis 5 mg p.o. b.i.d. She is not on any medications for rate control. ALLERGIES: HER ALLERGY LIST IS EXTENSIVE AND IS CHARTED. FAMILY HISTORY: Positive for heart disease and diabetes. SOCIAL HISTORY: Quit smoking 13 years ago. REVIEW OF SYSTEMS: Negative for bleeding. PHYSICAL EXAMINATION: GENERAL: Shows a morbidly obese woman who appears her stated age. She is slightly using accessory muscles. VITAL SIGNS: Are charted. On telemetry, her ventricular rate is not optimally controlled. On minimal activity, her heart rate is greater than 130, at rest it is 105. HEENT: Unremarkable. NECK: Neck veins are difficult to discern. CHEST: Shows rhonchi and some wheezes bilaterally and using accessory muscles. CARDIAC: S1 and S2. Irregular rate and rhythm. ABDOMEN: Obese. EXTREMITIES: Reveal marked lower extremity edema. NEUROLOGIC: She is alert. LABORATORY STUDIES: Labs show that she is polycythemic with a hematocrit of 47.7, creatinine is 0.96. Troponins are 0.06, 0.08, and 0.09, which are nonspecific. Her chest x-ray is showing increased markings suggestive of CHF. EKG shows AFib with a controlled rate, LVH, LV strain pattern. IMPRESSION: Suspect acute diastolic congestive heart failure. Diuretic has been initiated. Her atrial fibrillation does not seem to be optimally controlled. RECOMMENDATIONS: I am adding potassium supplements. I am adding a low-dose diltiazem for rate control. We will review her echo later today. She is on IV diuretics. I have added potassium repletion and repeat labs in the morning. Further therapy to be determined. MD DWIGHT Torres/MIRIAM , 02:21 PM , 02:48 PM
[2017-10-29] MEDS: DILTIAZEM HCL 30 MG TAB PO SCH ×2 (17:24→17:25)
[2017-10-29] MEDS: POTASSIUM CHLORIDE 20 MEQ CONTROLLED RELEASE TAB PO SCH ×2 (17:25→22:33)
[2017-10-29] MEDS ORDERED: APIXABAN 5 MG TABLET PO SCH (21:00)
[2017-10-29] MEDS: APIXABAN 5 MG TABLET PO SCH (22:33)
[2017-10-30] VITALS (11 sets, daily range): BP systolic 112–128; BP diastolic 56–74; PULSE 59–102; RESP 16–24; TEMP 97.4–98.7; O2SAT 94–97
[2017-10-30] MEDS: RESP: ALBUTEROL 2.5 MG/IPRATROPIUM 0.5 MG NEB (PRN) NEB (00:24)
[2017-10-30] MEDS: DILTIAZEM HCL 30 MG TAB PO SCH ×4 (01:16→18:37)
[2017-10-30] MEDS: RESP: ALBUTEROL 2.5 MG/IPRATROPIUM 0.5 MG NEB (SCH) NEB ×4 (06:26→19:20)
[2017-10-30] MEDS: NYSTATIN 100,000 U/GM PWD 15 GM BTL TOPICAL SCH ×3 (06:40→20:36)
[2017-10-30] MEDS: methylPREDNISolone SOD SUCC 40 MG/1 ML VIAL IV PUSH SCH (06:40)
[2017-10-30] MEDS: LEVOTHYROXINE SODIUM 75 MCG TAB PO SCH (06:41)
[2017-10-30 07:07] LABS: ALBUMIN 2.6 GM/DL (3.4-5.0); ALT (GPT) 20 U/L (10-53); AST (GOT) 20 U/L (15-37); BICARBONATE 27.6 MEQ/L (21.0-32.0); BLOOD UREA NITROGEN 24 MG/DL (7-18); CALCIUM 10.5 MG/DL (8.5-10.1); CHLORIDE 104 MEQ/L (98-107); GLOMERULAR FILTRATION RATE 43 ML/MIN (>89); GLUCOSE,RANDOM 181 MG/DL (74-106); SODIUM (NA) 138 MEQ/L (136-145)
[2017-10-30 07:17] LABS: ALKALINE PHOSPHATASE 116 U/L (45-117); TOTAL BILIRUBIN ADULT 3.6 MG/DL (0.2-1.0); TOTAL PROTEIN 7.2 GM/DL (6.4-8.2)
--- NOTE | 2017-10-30 08:20 | HHI.PR ---
Subjective Remarks Follow-up heart failure. Improving shortness of breath still on 3 L nasal cannula. Agrees with rehabilitation Objective Vitals Vital Signs Date Time Temp Pulse Resp B/P (MAP) Pulse Ox O2 Delivery O2 Flow Rate FiO2 10/30/17 07:24 97.6 59 24 116/56 (76) 97 10/30/17 04:00 101 10/30/17 04:00 101 10/30/17 03:37 98.7 102 20 128/64 (85) 96 10/30/17 00:17 97.9 95 16 119/74 (89) 94 10/30/17 00:00 84 10/30/17 00:00 84 10/29/17 21:00 98.2 99 20 117/78 (91) 98 10/29/17 20:00 93 10/29/17 20:00 93 10/29/17 19:11 98 Nasal Cannula 3.00 10/29/17 15:22 98.1 110 24 128/70 (89) 98 10/29/17 13:55 99 Nasal Cannula 2.00 10/29/17 11:15 97.4 102 22 125/85 (98) 95 I/O 10/29/17 10/29/17 10/29/17 10/30/17 10/30/17 10/30/17 07:00 15:00 23:00 07:00 15:00 23:00 Intake Total 35 ml Balance 35 ml Intake Oral 35 ml # Voids 7 Result Diagram: 10/28/17 2136 10/30/17 0602 Imaging Last Impressions Chest X-Ray 10/28/17 1454 Signed Impressions: Service Date/Time: Saturday, October 28, 2017 15:19 - CONCLUSION: 1. Increased interstitial markings bilaterally suggestive of pulmonary edema versus pneumonia. 2. Stable cardiomegaly Subhash Garcia MD Objective Remarks GENERAL: female sitting up in bed SKIN: No rashes, ecchymoses or lesions. Cool and dry. CARDIOVASCULAR: Irregularly irregular RESPIRATORY: Breath sounds equal bilaterally. Expiratory wheezes resolved GASTROINTESTINAL: Abdomen soft, non-tender, nondistended. No guarding. MUSCULOSKELETAL: 2+ pitting edema bilaterally. No calf tenderness. NEUROLOGICAL: Awake and alert. Cranial nerves II through XII intact. Motor and sensory grossly within normal limits. Normal speech. Procedures none A/P Problem List: (1) COPD exacerbation ICD Code: J44.1 - Chronic obstructive pulmonary disease with (acute) exacerbation Assessment and Plan 1. Acute onset diastolic heart failure. ECHO with EF 65% and LVH. Continue IV diuresis with Lasix 2. Elevated troponin. Denies chest pain. Cardiology has been consulted 3. Atrial fibrillation with RVR. Improving on CCB and Eliquis 4. Rheumatoid/psoriatic arthritis. Patient takes methotrexate weekly 5. Hypothyroidism. Continue home Synthroid therapeutic TSH 6. Recent left cataract surgery with implants. Continue eyedrops and follow- up with operational communication chief 7. Acute on chronic kidney disease stage II. Nonoliguric. Closely monitor while on diuretics repeat BMP DVT prophylaxis with Eliquis Discharge Planning Possible discharge in the morning Wes Diane MD Oct 30, 2017 08:20
[2017-10-30] MEDS: SODIUM CHLORIDE 0.9% FLUSH 10 ML FLUSH IV FLUSH SCH ×2 (09:01→20:37)
[2017-10-30] MEDS: FUROSEMIDE 40 MG/4 ML VIAL IVP SCH ×2 (09:01→18:37)
[2017-10-30] MEDS: APIXABAN 5 MG TABLET PO SCH ×2 (09:01→20:37)
[2017-10-30] MEDS: POTASSIUM CHLORIDE 20 MEQ CONTROLLED RELEASE TAB PO SCH ×4 (09:01→20:37)
[2017-10-30] MEDS: KETOROLAC TROMETHAMINE 0.5% LEFT EYE SCH ×4 (09:02→20:38)
[2017-10-30] MEDS: prednisoLONE ACETATE 1% OPHT SUSP 5 ML BTL LEFT EYE SCH ×4 (09:02→20:38)
[2017-10-30] MEDS: MOXIFLOXACIN 0.5% OPHT SOLN 3 ML BTL LEFT EYE SCH ×4 (09:02→20:38)
--- NOTE | 2017-10-30 10:14 | PD.CARD.PN ---
Subjective Subjective Remarks less SOB Objective Medications Current Medications Medications (Trade) Dose Ordered Sig/Juwan Route Start Time Stop Time Status Last Admin (NS Flush) 2 ml BID IV FLUSH 10/28/17 21:00 10/30/17 09:01 (NS Flush) 2 ml UNSCH PRN IV FLUSH 10/28/17 20:30 (Lasix Inj) 40 mg BID@,18 IVP 10/29/17 09:00 10/30/17 09:01 (Duoneb Neb) 1 ampule Q4HR NEB PRN NEB 10/28/17 20:30 10/30/17 00:24 (Synthroid) 75 mcg DAILY@0600 PO 10/29/17 06:00 10/30/17 06:41 (Vigamox 0.5% Opht Soln) 1 drop QID LEFT EYE 10/29/17 09:00 10/30/17 09:02 (Pred Forte 1% Opth Susp) 1 drop QID LEFT EYE 10/29/17 09:00 10/30/17 09:02 (Mycostatin Powder) APPLY TO lower abdomi... Q8HR TOPICAL 10/29/17 06:00 10/30/17 06:40 Non-Formulary Medication KETOROLAC TROMETHAMINE 0.5% O... QID LEFT EYE 10/29/17 13:00 10/30/17 09:02 (Duoneb Neb) 1 ampule QID NEB NEB 10/29/17 12:00 10/30/17 06:26 (KCl) 20 meq QID PO 10/29/17 18:00 10/30/17 09:01 (Cardizem) 30 mg Q6HR PO 10/29/17 14:15 10/30/17 06:41 (Eliquis) 5 mg BID PO 10/29/17 21:00 10/30/17 09:01 Vital Signs / I&O Vital Signs Date Time Temp Pulse Resp B/P (MAP) Pulse Ox O2 Delivery O2 Flow Rate FiO2 10/30/17 07:24 97.6 59 24 116/56 (76) 97 10/30/17 04:00 101 10/30/17 04:00 101 10/30/17 03:37 98.7 102 20 128/64 (85) 96 10/30/17 00:17 97.9 95 16 119/74 (89) 94 10/30/17 00:00 84 10/30/17 00:00 84 10/29/17 21:00 98.2 99 20 117/78 (91) 98 10/29/17 20:00 93 10/29/17 20:00 93 10/29/17 19:11 98 Nasal Cannula 3.00 10/29/17 15:22 98.1 110 24 128/70 (89) 98 10/29/17 13:55 99 Nasal Cannula 2.00 10/29/17 11:15 97.4 102 22 125/85 (98) 95 I/O 10/29/17 10/29/17 10/29/17 10/30/17 10/30/17 10/30/17 07:00 15:00 23:00 07:00 15:00 23:00 Intake Total 35 ml Balance 35 ml Intake Oral 35 ml # Voids 7 Physical Exam Alert Chest B/L rhonchi CV S1S2 irr, irr; rate bertter Abd benign Ext 2+ edema Laboratory Laboratory Tests Test 10/30/17 06:02 Blood Urea Nitrogen 24 MG/DL Creatinine 1.20 MG/DL Random Glucose 181 MG/DL Total Protein 7.2 GM/DL Albumin 2.6 GM/DL Calcium Level 10.5 MG/DL Magnesium Level 2.0 MG/DL Alkaline Phosphatase 116 U/L Aspartate Amino Transf (AST/SGOT) 20 U/L Alanine Aminotransferase (ALT/SGPT) 20 U/L Total Bilirubin 3.6 MG/DL Sodium Level 138 MEQ/L Potassium Level 4.2 MEQ/L Chloride Level 104 MEQ/L Carbon Dioxide Level 27.6 MEQ/L Anion Gap 6 MEQ/L Estimat Glomerular Filtration Rate 43 ML/MIN Thyroid Stimulating Hormone 3rd Gen 0.488 uIU/ML Assessment and Plan Problem List: (1) Acute diastolic (congestive) heart failure ICD Codes: I50.31 - Acute diastolic (congestive) heart failure Plan: diurseis improving (2) Atrial fibrillation with rapid ventricular response ICD Codes: I48.91 - Unspecified atrial fibrillation Status: Resolved Plan: better controlled (3) COPD exacerbation ICD Codes: J44.1 - Chronic obstructive pulmonary disease with (acute) exacerbation Will Cooper MD Oct 30, 2017 10:14
[2017-10-31] VITALS (10 sets, daily range): BP systolic 126–136; BP diastolic 60–80; PULSE 60–112; RESP 18–20; TEMP 97.4–98.4; O2SAT 95–97
[2017-10-31] MEDS: NYSTATIN 100,000 U/GM PWD 15 GM BTL TOPICAL SCH ×2 (05:51→14:16)
[2017-10-31] MEDS: DILTIAZEM HCL 30 MG TAB PO SCH ×2 (05:51)
[2017-10-31] MEDS: LEVOTHYROXINE SODIUM 75 MCG TAB PO SCH (05:51)
[2017-10-31] MEDS: RESP: ALBUTEROL 2.5 MG/IPRATROPIUM 0.5 MG NEB (SCH) NEB ×4 (07:36→19:33)
[2017-10-31 08:44] LABS: BICARBONATE 26.4 MEQ/L (21.0-32.0); CALCIUM 11.6 MG/DL (8.5-10.1); CREATININE 1.27 MG/DL (0.50-1.00); MAGNESIUM 1.9 MG/DL (1.5-2.5)
[2017-10-31] MEDS: FUROSEMIDE 40 MG/4 ML VIAL IVP SCH (08:56)
[2017-10-31] MEDS: APIXABAN 5 MG TABLET PO SCH (08:56)
[2017-10-31] MEDS: SODIUM CHLORIDE 0.9% FLUSH 10 ML FLUSH IV FLUSH SCH (08:56)
[2017-10-31] MEDS: POTASSIUM CHLORIDE 20 MEQ CONTROLLED RELEASE TAB PO SCH (08:56)
[2017-10-31] MEDS: KETOROLAC TROMETHAMINE 0.5% LEFT EYE SCH ×3 (08:57→18:25)
[2017-10-31] MEDS: MOXIFLOXACIN 0.5% OPHT SOLN 3 ML BTL LEFT EYE SCH ×3 (08:57→18:25)
[2017-10-31] MEDS: prednisoLONE ACETATE 1% OPHT SUSP 5 ML BTL LEFT EYE SCH ×3 (08:57→18:25)
--- NOTE | 2017-10-31 09:00 | HHI.PR ---
Subjective Remarks Follow-up shortness of breath. Improving dyspnea tolerating room air. Complains of lower back pain because of hospital bed. Denies trauma. Seen with . Discussed with RN and case management Objective Vitals Vital Signs Date Time Temp Pulse Resp B/P (MAP) Pulse Ox O2 Delivery O2 Flow Rate FiO2 10/31/17 07:38 95 21 10/31/17 05:35 98.4 87 18 126/60 (82) 95 10/31/17 04:00 84 10/30/17 23:58 98.1 96 18 124/56 (78) 95 10/30/17 21:07 98.1 87 18 128/60 (82) 94 10/30/17 19:23 96 10/30/17 16:30 97.6 94 22 112/58 (76) 96 10/30/17 12:19 97.4 93 20 114/58 (76) 94 I/O 10/30/17 10/30/17 10/30/17 10/31/17 10/31/17 10/31/17 07:00 15:00 23:00 07:00 15:00 23:00 Intake Total 360 ml 450 ml 650 ml Output Total 40 ml 480 ml 400 ml Balance 320 ml -30 ml 250 ml Intake Oral 360 ml 450 ml 650 ml Output Urine Total 40 ml 480 ml 400 ml Result Diagram: 10/28/17 2136 10/31/17 0707 Imaging Last Impressions Chest X-Ray 10/28/17 1454 Signed Impressions: Service Date/Time: Saturday, October 28, 2017 15:19 - CONCLUSION: 1. Increased interstitial markings bilaterally suggestive of pulmonary edema versus pneumonia. 2. Stable cardiomegaly Subhash Garcia MD Objective Remarks GENERAL: female sitting up in bed SKIN: No rashes, ecchymoses or lesions. Cool and dry. CARDIOVASCULAR: Irregularly irregular RESPIRATORY: Breath sounds equal bilaterally. Expiratory wheezes resolved GASTROINTESTINAL: Abdomen soft, non-tender, nondistended. No guarding. MUSCULOSKELETAL: 2+ pitting edema bilaterally. No calf tenderness. No spinal tenderness NEUROLOGICAL: Awake and alert. Cranial nerves II through XII intact. Motor and sensory grossly within normal limits. Normal speech. Procedures none A/P Problem List: (1) COPD exacerbation ICD Code: J44.1 - Chronic obstructive pulmonary disease with (acute) exacerbation Assessment and Plan 1. Acute onset diastolic heart failure. ECHO with EF 65% and LVH. Improving switch to p.o. torsemide 2. Elevated troponin. Denies chest pain. Likely secondary to above. Cardiology has been consulted 3. Atrial fibrillation with RVR. Improved on CCB and Eliquis 4. Rheumatoid/psoriatic arthritis. Patient takes methotrexate weekly. Lower back pain likely musculoskeletal 5. Hypothyroidism. Continue home Synthroid therapeutic TSH 6. Recent left cataract surgery with implants. Continue eyedrops and follow- up with nuclear plant instrument technician 7. Acute on chronic kidney disease stage II. Patient with hyperkalemia will discontinue potassium supplementation. Stable creatinine. Closely monitor while on diuretics repeat BMP 8. Hypercalcemia could be related to decreased mobility. Asymptomatic. Outpatient follow-up DVT prophylaxis with Eliquis Discharge Planning Stable for discharge Wes Diane MD Oct 31, 2017 09:00
--- NOTE | 2017-10-31 09:15 | PD.CARD.PN ---
Subjective Subjective Remarks less SOB. C/o back pain Objective Medications Current Medications Medications (Trade) Dose Ordered Sig/Juwan Route Start Time Stop Time Status Last Admin (NS Flush) 2 ml BID IV FLUSH 10/28/17 21:00 10/31/17 08:56 (NS Flush) 2 ml UNSCH PRN IV FLUSH 10/28/17 20:30 (Duoneb Neb) 1 ampule Q4HR NEB PRN NEB 10/28/17 20:30 10/30/17 00:24 (Synthroid) 75 mcg DAILY@0600 PO 10/29/17 06:00 10/31/17 05:51 (Vigamox 0.5% Opht Soln) 1 drop QID LEFT EYE 10/29/17 09:00 10/31/17 08:57 (Pred Forte 1% Opth Susp) 1 drop QID LEFT EYE 10/29/17 09:00 10/31/17 08:57 (Mycostatin Powder) APPLY TO lower abdomi... Q8HR TOPICAL 10/29/17 06:00 10/31/17 05:51 Non-Formulary Medication KETOROLAC TROMETHAMINE 0.5% O... QID LEFT EYE 10/29/17 13:00 10/31/17 08:57 (Duoneb Neb) 1 ampule QID NEB NEB 10/29/17 12:00 10/31/17 07:36 (Eliquis) 5 mg BID PO 10/29/17 21:00 10/31/17 08:56 (Cardizem Cd) 180 mg DAILY PO 11/01/17 09:00 (Demadex) 20 mg DAILY PO 11/01/17 09:00 Vital Signs / I&O Vital Signs Date Time Temp Pulse Resp B/P (MAP) Pulse Ox O2 Delivery O2 Flow Rate FiO2 10/31/17 08:58 97.4 92 18 134/62 (86) 96 10/31/17 08:58 Room Air 10/31/17 07:38 95 21 10/31/17 05:35 98.4 87 18 126/60 (82) 95 10/31/17 04:00 84 10/30/17 23:58 98.1 96 18 124/56 (78) 95 10/30/17 21:07 98.1 87 18 128/60 (82) 94 10/30/17 19:23 96 10/30/17 16:30 97.6 94 22 112/58 (76) 96 10/30/17 12:19 97.4 93 20 114/58 (76) 94 I/O 10/30/17 10/30/17 10/30/17 10/31/17 10/31/17 10/31/17 07:00 15:00 23:00 07:00 15:00 23:00 Intake Total 360 ml 450 ml 650 ml Output Total 40 ml 480 ml 400 ml Balance 320 ml -30 ml 250 ml Intake Oral 360 ml 450 ml 650 ml Output Urine Total 40 ml 480 ml 400 ml Physical Exam Alert Chest B/L rhonchi/ wheezes CV S1S2 irr, irr; rate 100 Abd benign Ext 1+ edema Laboratory Laboratory Tests Test 10/31/17 07:07 Blood Urea Nitrogen 36 MG/DL Creatinine 1.27 MG/DL Random Glucose 115 MG/DL Calcium Level 11.6 MG/DL Magnesium Level 1.9 MG/DL Sodium Level 136 MEQ/L Potassium Level 5.8 MEQ/L Chloride Level 102 MEQ/L Carbon Dioxide Level 26.4 MEQ/L Anion Gap 8 MEQ/L Estimat Glomerular Filtration Rate 40 ML/MIN Assessment and Plan Problem List: (1) Acute diastolic (congestive) heart failure ICD Codes: I50.31 - Acute diastolic (congestive) heart failure Plan: change diuretic to PO (2) Atrial fibrillation with rapid ventricular response ICD Codes: I48.91 - Unspecified atrial fibrillation Status: Resolved Plan: Change Dilt to 180mg daily (3) COPD exacerbation ICD Codes: J44.1 - Chronic obstructive pulmonary disease with (acute) exacerbation Plan: needs pulmonary F/U. Bronchospasm ongoing. Prob has sleep apnea (4) Hyperkalemia ICD Codes: E87.5 - Hyperkalemia Status: Acute Plan: DC KCL supp. Will Cooper MD Oct 31, 2017 09:15
[2017-10-31 09:16] LABS: CALCIUM-PROTEIN CORRECTED 11.5 MG/DL (8.5-10.1)
[2017-10-31 09:18] LABS: TOTAL PROTEIN 7.3 GM/DL (6.4-8.2)
[2017-10-31] MEDS ORDERED: CARD180C5 PO (13:57)
[2017-10-31] MEDS ORDERED: TORS1TAB12 PO (13:57)
--- NOTE | 2017-10-31 13:57 | HHI.DCPOC ---
Discharge Care Plan Diagnosis: (1) Acute diastolic (congestive) heart failure (2) Atrial fibrillation with rapid ventricular response (3) COPD exacerbation Goals to Promote Your Health * To prevent worsening of your condition and complications * To maintain your health at the optimal level Directions to Meet Your Goals Take your medications as prescribed Follow your dietary instruction Follow activity as directed Keep your appointments as scheduled Take your immunizations and boosters as scheduled If your symptoms worsen call your PCP, if no PCP go to Urgent Care Center or Emergency Room Smoking is Dangerous to Your Health. Avoid second hand smoke Call the 24-hour hour crisis hotline for domestic abuse at Jess Carrion PA-C Oct 31, 2017 1:57 pm
--- NOTE | 2017-10-31 17:31 | HHI.DS ---
Discharge Summary Admission Date Oct 28, 2017 at 20:29 Discharge Date: Oct 31, 2017 Admitting Diagnosis CHF exacerbation, elevated troponin (1) COPD exacerbation ICD Code: J44.1 - Chronic obstructive pulmonary disease with (acute) exacerbation Diagnosis: Principal Procedures none Brief History - From Admission 82-year-old female with a past medical history significant for history of lung cancer, rheumatoid and psoriatic arthritis, hypothyroidism, atrial fibrillation anticoagulated on Eliquis and history of NSTEMI presents to the emergency department for the evaluation of increasing bilateral lower extremity edema with associated shortness of breath. The patient reports she had general anesthesia for a cataract surgery on Friday and since that time she has been having these symptoms. She also endorses an associated nonproductive cough. She was seen in the emergency department yesterday at [facility] where several x-rays were done but she reports she was not given any medications or prescriptions. Last echo done in 2015 showed an EF of 50-60%. The patient denies any chest pain. Denies nausea/vomiting/diarrhea. Denies increasing weakness or lateralizing signs/symptoms. CBC/BMP: 10/28/17 2136 10/31/17 0707 Significant Findings Laboratory Tests Test 10/28/17 21:36 10/28/17 22:22 10/29/17 03:30 10/30/17 06:02 Hemoglobin 16.4 GM/DL (11.6-15.3) Hematocrit 47.7 % (35.0-46.0) Mean Corpuscular Hemoglobin 34.1 PG (27.0-34.0) Neutrophils (%) (Auto) 78.0 % (16.0-70.0) Monocytes (%) (Auto) 8.8 % (0.0-8.0) Lymphocytes # (Auto) 0.8 TH/MM3 (1.0-4.8) Troponin I 0.08 NG/ML (0.02-0.05) 0.09 NG/ML (0.02-0.05) Prothrombin Time 12.6 SEC (9.8-11.6) Blood Urea Nitrogen 20 MG/DL (7-18) 24 MG/DL (7-18) Calcium Level 10.4 MG/DL (8.5-10.1) 10.5 MG/DL (8.5-10.1) Estimat Glomerular Filtration Rate 56 ML/MIN (>89) 43 ML/MIN (>89) Creatinine 1.20 MG/DL (0.50-1.00) Random Glucose 181 MG/DL (74-106) Albumin 2.6 GM/DL (3.4-5.0) Total Bilirubin 3.6 MG/DL (0.2-1.0) Test 10/31/17 07:07 Blood Urea Nitrogen 36 MG/DL (7-18) Creatinine 1.27 MG/DL (0.50-1.00) Random Glucose 115 MG/DL (74-106) Calcium Level 11.6 MG/DL (8.5-10.1) Potassium Level 5.8 MEQ/L (3.5-5.1) Estimat Glomerular Filtration Rate 40 ML/MIN (>89) Protein Corrected Calcium 11.5 MG/DL (8.5-10.1) Imaging Last Impressions Chest X-Ray 10/28/17 1454 Signed Impressions: Service Date/Time: Saturday, October 28, 2017 15:19 - CONCLUSION: 1. Increased interstitial markings bilaterally suggestive of pulmonary edema versus pneumonia. 2. Stable cardiomegaly Subhash Garcia MD PE at Discharge GENERAL: female sitting up in bed SKIN: No rashes, ecchymoses or lesions. Cool and dry. CARDIOVASCULAR: Irregularly irregular RESPIRATORY: Breath sounds equal bilaterally. Expiratory wheezes resolved GASTROINTESTINAL: Abdomen soft, non-tender, nondistended. No guarding. MUSCULOSKELETAL: 2+ pitting edema bilaterally. No calf tenderness. No spinal tenderness NEUROLOGICAL: Awake and alert. Cranial nerves II through XII intact. Motor and sensory grossly within normal limits. Normal speech. Hospital Course 1. Acute onset diastolic heart failure. ECHO with EF 65% and LVH. Improving switch to p.o. torsemide 2. Elevated troponin. Denies chest pain. Likely secondary to above. Cardiology has been consulted 3. Atrial fibrillation with RVR. Improved on CCB and Eliquis 4. COPD exac. Improved s/p steroids ct nebs. Will need eval for apnea op 5. Hypothyroidism. Continue home Synthroid therapeutic TSH 6. Recent left cataract surgery with implants. Continue eyedrops and follow- up with electrical engineer 7. Acute on chronic kidney disease stage II. Patient with hyperkalemia will discontinue potassium supplementation. Stable creatinine. Closely monitor while on diuretics repeat BMP 8. Hypercalcemia could be related to decreased mobility. Asymptomatic. Outpatient follow-up 9. Rheumatoid/psoriatic arthritis. Patient takes methotrexate weekly. Lower back pain likely musculoskeletal DVT prophylaxis with Eliquis Pt Condition on Discharge: Stable Discharge Disposition: Discharge to SNF Discharge Time: > 30 minutes Discharge Instructions DIET: Follow Instructions for: Heart Healthy Diet, Low Sodium Diet Additional Diet Instructions: Fluid restrictions < 1500ml daily. Activities you can perform: Regular-No Restrictions Follow up Referrals: Cardiology - 1 Week with Philip Massey MD PCP Follow-up - 1 Week with Maricruz Vela MD New Orders: BASIC METABOLIC PROF - 11/03/17 New Medications: Diltiazem CD 24 HR (Cardizem CD 24 HR) 180 Mg Caper 180 MG PO DAILY for Regulate Heart Beat, #30 CAP Torsemide (Demadex) 20 Mg Tab 20 MG PO DAILY for fluid, #30 TAB Continued Medications: Apixaban (Eliquis) 5 Mg Tab 5 MG PO BID for Blood Clot Prevention, #60 TAB 0 Refills Denosumab Inj (Prolia Inj) 60 Mg/Ml Inj 60 MG SQ Q180D, #1 VIAL 0 Refills Ketorolac Opth Drops (Ketorolac Opth Drops) 0.5% Drops 1 DROP LEFT EYE QID for Pain/Inflammation for 28 Days, #5 ML 0 Refills Levothyroxine (Synthroid) 75 Mcg Tab 75 MCG PO DAILY for Thyroid, #30 TAB 0 Refills Methotrexate (Methotrexate) 2.5 Mg Tab 2.5 MG PO Q7D, TAB 0 Refills Moxifloxacin Opth Drops (Vigamox Opth Drops) 0.5 % Soln 1 DROP LEFT EYE QID for Infection, #1 BOTTLE 0 Refills Prednisolone Acetate Opth 1% (Pred Forte Opth 1%) 1% Susp 1 DROP LEFT EYE QID for Inflammation for 28 Days, #1 BOTTLE 0 Refills Wes Diane MD Oct 31, 2017 17:31
[2017-11-01] MEDS ORDERED: DILTIAZEM-CD 180 MG CAP ER PO SCH (09:00)
[2017-11-01] MEDS ORDERED: TORSEMIDE 20 MG TAB PO SCH (09:00)
--- NOTE | 2017-11-08 10:42 | PQ ---
Physician Query Response Document PATIENT: NISHA JOSEPH : 1935 ADMIT DATE: 10/28/2017 8:29 PM DISCH DATE: 10/31/2017 7:59 PM RESPONDING PROVIDER #: Ozzy QUERY TEXT: Clarification of Clinical Diagnostic Findings Please clarify documentation or clinical relevance for the clinical / diagnostic findings or whether those are insignificant or unable to be further specified: What is meant by "acute kidney disease"? ___ Acute kidney/renal insufficiency ___ Acute kidney/renal failure ___ Acute worsening of chronic renal disease, stage II ___ Other diagnosis ___ Clinically unable to determine If you have any additional questions/comments and/or concerns, please do not hesitate to reach out to the CDI/Coding Hotline, Ext. [phone]. The patient's Clinical Indicators include: Discharge Summary and Progress Notes document diagnosis of: 7. Acute on chronic kidney disease stage II. Query created by: Yolette Romo on 11/06/2017 5:32 PM RESPONSE TEXT: Acute worsening of chronic renal dse stage 2 Electronically signed by: Wes Diane MD 11/08/2017 10:38 AM
== END 2017-10-31 19:59 | DRG 190 ==
LOC: NEPE 14:01 → NEDA 19:25 → OBSVTOIN 20:29 → NEPHCDU 21:04
PROVIDERS: ADMIT Internal Medicine; ATTEND Internal Medicine
DX: J44.1 Chronic obstructive pulmonary disease with (acute) exacerbation (principal); I50.31 Acute diastolic (congestive) heart failure; E87.5 Hyperkalemia; I48.91 Unspecified atrial fibrillation; E66.01 Morbid (severe) obesity due to excess calories; D75.1 Secondary polycythemia; Z79.02 Long term (current) use of antithrombotics/antiplatelets; M06.9 Rheumatoid arthritis, unspecified; Z79.899 Other long term (current) drug therapy; N18.2 Chronic kidney disease, stage 2 (mild); L40.50 Arthropathic psoriasis, unspecified; E03.9 Hypothyroidism, unspecified; I25.2 Old myocardial infarction; H91.90 Unspecified hearing loss, unspecified ear; Z85.118 Personal history of other malignant neoplasm of bronchus and lung; Z90.2 Acquired absence of lung [part of]; Z98.890 Other specified postprocedural states; Z98.49 Cataract extraction status, unspecified eye; Z87.891 Personal history of nicotine dependence
CPT/HCPCS: 71046; 76937; 80048; 80053; 82550; 82552; 83735; 83880; 84155; 84443; 84484; 85025; 85610; 85730; 93005; 93306; 94618; 94640; 94664; 99285; J1644; J1940; J2920

== ENCOUNTER 2017-11-18 19:20 | Inpatient (IN) | payer MEDICARE, BC ==
[~2017-11-18] VITALS: Ht 162.6 cm; Wt 128.0 kg
[~2017-11-18 19:20] MED LIST changes: +CARD180C5 PO; +KETO0.5S2 LEFT EYE; +PRED1SUS LEFT EYE; +TORS1TAB12 PO; +VIGA0.5D LEFT EYE
[2017-11-18 19:28] VITALS: BP 107/55; PULSE 126; RESP 28; TEMP 99; O2SAT 97
[2017-11-18 19:37] VITALS: PULSE 108; RESP 20; O2SAT 97
--- NOTE | 2017-11-18 19:38 | PD ---
Physical Exam Narrative General: The patient is a well-developed well-nourished female in no acute distress. The patient is drowsy on examination, closing her eyes, however she is awake and will answer questions appropriately. Head and Neck exam: Head is normocephalic atraumatic. Eyes: EOMI, pupils are equal round and reactive to light. Nose: Midline septum with pink mucous membranes Mouth: Dentition unremarkable. Moist mucus membranes. Posterior oropharynx is not erythematous. No tonsillar hypertrophy. Uvula midline. Airway patent. Neck: No palpable lymphadenopathy. No nuchal rigidity. No thyromegaly. Negative Brudzinski, negative Kernig sign. Cardiovascular: Irregularly irregular with a rate in the low 100, consistent with her history of atrial fibrillation without murmurs, gallops, or rubs. Lungs: Decreased breath sounds in bilateral bases, crackles audible in the right lower lung base on exam. No rhonchi, no wheezes audible. No accessory muscle use noted. No tripoding or paroxysmal abdominal breathing. Abdomen: Soft, without tenderness to palpation in all 4 quadrants of the abdomen. No guarding, rebound, or rigidity. Normal bowel sounds are audible. No tenderness on palpation of McBurney's point. Negative Jackman sign. Extremities: No clubbing or cyanosis. The patient has 2-3+ pitting edema bilateral lower extremities. The patient is noted to have some erythema along the right lateral thigh which may be related to pressure, however this will be monitored. The patient denies having any significant tenderness on palpation. No crepitus. No vesicle formation. 2+ pulses in all 4 extremities. Back: No costovertebral angle tenderness to palpation. Neurologic Exam: Grossly nonfocal with generalized weakness. The patient is oriented the patient is able to provide her history. Skin Exam: No rash noted. Intact skin that is warm and dry. Data Data Last Documented VS Vital Signs Date Time Temp Pulse Resp B/P (MAP) Pulse Ox O2 Delivery O2 Flow Rate FiO2 11/18/17 22:56 102.6 100 20 86/48 (61) 96 Nasal Cannula 2.00 Orders Orders Complete Blood Count With Diff (11/18/17 19:33) Comprehensive Metabolic Panel (11/18/17 19:33) B-Type Natriuretic Peptide (11/18/17 19:33) Act Partial Throm Time (Ptt) (11/18/17 19:33) Prothrombin Time / Inr (Pt) (11/18/17 19:33) Magnesium (Mg) (11/18/17 19:33) Ckmb (Isoenzyme) Profile (11/18/17 19:33) Troponin I (11/18/17 19:33) Urinalysis - C+S If Indicated (11/18/17 19:33) Blood Culture (11/18/17 19:33) Iv Access Insert/Monitor (11/18/17 19:33) Electrocardiogram (11/18/17 19:33) Ecg Monitoring (11/18/17 19:33) Oximetry (11/18/17 19:33) Oxygen Administration (11/18/17 19:33) Chest, Single Ap (11/18/17 19:33) Sodium Chloride 0.9% Flush (Ns Flush) (11/18/17 19:45) Sepsis Workup Initiated (11/18/17 ) Lactic Acid Sepsis Protocol (11/18/17 19:33) Urinary Catheter Insert/Apply (11/18/17 19:38) Vancomycin Inj (Vancomycin Inj) (11/18/17 19:45) Aztreonam Inj (Azactam Inj) (11/18/17 19:41) Metronidazole 500 Mg Inj (Flagyl 500 Mg (11/18/17 19:41) Sodium Chlor 0.9% 250 Ml Inj (Ns 250 Ml (11/18/17 20:00) Albumin 25% Inj (Albumin 25% Inj) (11/18/17 22:00) CKMB (11/18/17 21:40) CKMB% (11/18/17 21:40) Admit Order (Ed Use Only) (11/18/17 23:05) Labs Laboratory Tests Test 11/18/17 21:40 11/18/17 22:33 White Blood Count 20.4 TH/MM3 Red Blood Count 4.77 MIL/MM3 Hemoglobin 15.5 GM/DL Hematocrit 46.3 % Mean Corpuscular Volume 96.9 FL Mean Corpuscular Hemoglobin 32.5 PG Mean Corpuscular Hemoglobin Concent 33.5 % Red Cell Distribution Width 17.4 % Platelet Count 218 TH/MM3 Mean Platelet Volume 9.1 FL Neutrophils (%) (Auto) 90.6 % Lymphocytes (%) (Auto) 6.0 % Monocytes (%) (Auto) 3.3 % Eosinophils (%) (Auto) 0.0 % Basophils (%) (Auto) 0.1 % Neutrophils # (Auto) 18.5 TH/MM3 Lymphocytes # (Auto) 1.2 TH/MM3 Monocytes # (Auto) 0.7 TH/MM3 Eosinophils # (Auto) 0.0 TH/MM3 Basophils # (Auto) 0.0 TH/MM3 CBC Comment AUTO DIFF Differential Total Cells Counted 100 Neutrophils % (Manual) 80 % Band Neutrophils % 17 % Lymphocytes % 3 % Neutrophils # (Manual) 19.8 TH/MM3 Differential Comment FINAL DIFF MANUAL Toxic Vacuolation PRESENT Platelet Estimate NORMAL Platelet Morphology Comment NORMAL Red Cell Morphology Comment NORMAL Prothrombin Time 14.0 SEC Prothromb Time International Ratio 1.4 RATIO Activated Partial Thromboplast Time 32.7 SEC Blood Urea Nitrogen 29 MG/DL Creatinine 1.89 MG/DL Random Glucose 101 MG/DL Total Protein 7.0 GM/DL Albumin 2.5 GM/DL Calcium Level 10.3 MG/DL Magnesium Level 1.8 MG/DL Alkaline Phosphatase 124 U/L Aspartate Amino Transf (AST/SGOT) 39 U/L Alanine Aminotransferase (ALT/SGPT) 22 U/L Total Bilirubin 4.2 MG/DL Sodium Level 139 MEQ/L Potassium Level 4.0 MEQ/L Chloride Level 102 MEQ/L Carbon Dioxide Level 25.0 MEQ/L Anion Gap 12 MEQ/L Estimat Glomerular Filtration Rate 25 ML/MIN Lactic Acid Level 3.1 mmol/L Total Creatine Kinase 143 U/L Creatine Kinase MB 3.2 NG/ML Troponin I 2.59 NG/ML B-Type Natriuretic Peptide 3568 PG/ML Urine Color YELLOW Urine Turbidity HAZY Urine pH 5.0 Urine Specific [place] 1.014 Urine Protein TRACE mg/dL Urine Glucose (UA) NEG mg/dL Urine Ketones NEG mg/dL Urine Occult Blood SMALL Urine Nitrite NEG Urine Bilirubin NEG Urine Urobilinogen 2.0 MG/DL Urine Leukocyte Esterase NEG Urine RBC 7 /hpf Urine WBC 3 /hpf Urine Squamous Epithelial Cells 1 /hpf Urine Amorphous Sediment RARE Urine Hyaline Casts 34 /lpf Urine Mucus FEW /lpf Microscopic Urinalysis Comment CULT NOT INDICATED MDM Medical Record Reviewed: Yes Supervised Visit with MAU: Yes Interpretation(s) Last Impressions Chest X-Ray 11/18/171932 Signed Impressions: Service Date/Time: Saturday, November 18, 2017 19:46 - CONCLUSION: Cardiomegaly with diffuse interstitial markings likely related to pulmonary edema and CHF. There some focal consolidation or atelectasis of the right medial base. Jaycob Mar MD Differential Diagnosis Pneumonia, versus congestive heart failure, versus sepsis, versus urinary tract infection, versus acute coronary syndrome Narrative Course I, Dr. Cooper, have reviewed the advance practice practitioner's documentation and am in agreement, met with the patient face to face, made the diagnosis, and the medical decision making was done by me. The patient was initially evaluated by Jeri, the PA. Please see their complete history and physical. 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 She denies having any nausea or vomiting. She denies having any diarrhea. She denies having any prior history of diabetes. The patient reports having a dry mouth. The patient reports that occasionally she will have a cough when she drinks fluids. She reports having neck pain, however she reports that this is chronic and been present for years. She reports that it is related to arthritis. The patient is brought in by ambulance services and reportedly had a blood pressure 70/40 prior to arrival and received normal saline at 250 mm IV fluid bolus. The patient on my arrival to the room is noted to have a blood pressure 107/55, tachycardic in the 1 teens with atrial fibrillation on the monitor and EKG. During the course of the patient's emergency department visit, the patient's history, examination, and differential diagnosis were reviewed with the patient. The patient was placed on a rn cardiac cath with oximetry and frequent blood pressure monitoring. The patient had IV access obtained and blood work sent for analysis. The patient's electronic medical record was reviewed. The patient was recently admitted to the hospital with shortness of breath and diagnosed with acute onset of diastolic heart failure and his COPD exacerbation. The patient's EKG is noted to be consistent with atrial fibrillation with RVR, heart rate of 113, left ventricular hypertrophy by voltage, QRS duration is 115 ms, QTC 419 ms. The patient has ST segment deviation, downsloping noted in lead I, 2, aVL, V5, V6 with T-wave inversions in 1, 2, aVL, V5, V6. No acute ST segment elevation. The patient was initially provided normal saline at 250 mL bolus repeated 1. The patient had blood cultures 2 drawn, lactic acid sent for analysis. The patient was started on broad-spectrum antibiotic due to meeting SIRS criteria and a suspected sepsis. The patient's laboratory studies were reviewed and remarkable for a white count of 20.4, hemoglobin 15.5, platelets 218 with 90.6 neutrophils with toxic vacuolation present. CMP is remarkable for BUN of 29, creatinine 1.89, calcium 10.3, total bilirubin 4.2, AST 39, alk phos 124. CPK is 143 with a troponin I of 2.59. PT 14, PTT 32.7, urinalysis shows small occult blood, 7 RBCs Radiology studies were reviewed and remarkable for a chest x-ray that shows cardiomegaly with diffuse interstitial markings likely related to pulmonary edema and CHF there is also focal consolidation or atelectasis at the right medial base. The patient's A. fib with RVR seem to be improving with IV fluids and the patient's blood pressure improved, however the patient's blood pressure began to drop again and the patient's chest x-ray revealed fluid overload, therefore judicious hydration only was indicated. As the patient's blood pressure was low and the patient had fever with worsening tachycardia and attempt was made to give the patient a fever finance associate, however she initially refused the administration of Tylenol. The patient was given albumin for additional blood pressure support. The patient's results were discussed with the patient, including the plan of care. I explained that further testing and/ or monitoring is indicated based on the patient's history, examination, and/ or laboratory findings. Therefore, I recommended admission for additional evaluation. The patient expressed understanding and was agreeable with this plan. The patient was admitted to the hospital in critical condition and sent to a bed under the care of the supervisor salvage service. Sepsis Criteria SIRS Criteria (2 or more): Heart rate over 90, RR > 20 or PaCO2 < 32, WBC > 13921, < 4000 or > 10% bands Sepsis Criteria (SIRS+source): Infect source susp/known Severe Sepsis (+one): Lactate >2 Criteria Outcome: Meets SIRS criteria, Meets sepsis criteria, Meets severe sepsis criteria Physician Communication Physician Communication The patient's case including history, pertinent physical examination findings, and laboratory studies were discussed with Dr. Delcid. It was agreed that the patient would be admitted to the supervisor salvage service. Diagnosis Primary Impression: Sepsis Qualified Codes: A41.9 - Sepsis, unspecified organism Additional Impressions: Acute exacerbation of congestive heart failure Qualified Codes: I50.33 - Acute on chronic diastolic (congestive) heart failure Elevated troponin Atrial fibrillation with RVR Admitting Information Admitting Physician Requests: Admit Galina Cooper MD Nov 18, 2017 19:38
[2017-11-18] MEDS ORDERED: AZTREONAM INJ 2,000 MG in SODIUM CHLORIDE 0.9% INJ 100 ML IV STA (19:41)
[2017-11-18] MEDS ORDERED: metroNIDAZOLE 500 MG INJ 100 ML IV STA (19:41)
[2017-11-18] MEDS ORDERED: SODIUM CHLORIDE 0.9% FLUSH 10 ML FLUSH IVF PRN (19:45)
[2017-11-18] MEDS ORDERED: VANCOMYCIN INJ 1,500 MG in SODIUM CHLORID 0.9% 500 ML INJ 500 ML IV ONE (19:45)
--- NOTE | 2017-11-18 19:47 | PD ---
HPI Chief Complaint: Respiratory Symptoms Time Seen by Provider: 19:33 Travel History International Travel<30 days: No Contact w/Intl Traveler<30days: No Traveled to known affect area: No History of Present Illness HPI 82-year-old female with a history of congestive heart failure, atrial fibrillation, COPD presents emergency department from [facility] complaining of shortness of breath, fever, chills for about 2 days. Patient states that she was showering when she felt more short of breath. EVAC states that the facility mentioned an increase of her white blood cell count and they were concerned about a developing pneumonia. Patient was initially hypotensive at blood pressure 70/40. Responsive to 250 cc normal saline to systolic in the 80s -90s. Says that patient has also had a temperature of 100.7. Patient states she has not had antibiotics because of ordering issues with [facility]. She apparently is at [facility] as a rehab facility after her admission to this hospital earlier this month. PFSH Past Medical History Arthritis: Yes Asthma: No Autoimmune Disease: No Anxiety: Yes ("MENTAL BREAKDOWN") Depression: Yes Heart Rhythm Problems: Yes Cancer: Yes (LUNG CA, SKIN CA) Cardiovascular Problems: Yes (HEART FAILURE, HEART MURMUR, A. FIB, PVD, CHF, [place] (2016)) High Cholesterol: Yes Chemotherapy: No Chest Pain: No Congestive Heart Failure: Yes COPD: Yes Cerebrovascular Accident: No Diabetes: No Diminished Hearing: Yes ([place]) Endocrine: Yes (HYPOTHYROIDISM) Gastrointestinal Disorders: Yes (GERD) GERD: Yes Genitourinary: No Hepatitis: No Hiatal Hernia: Yes Immune Disorder: No Kidney Stones: No Musculoskeletal: Yes (PSORIATIC/RHEUMATOID/OSTEOARTHRITIS, LOW BACK PAIN & FRACTURES) Neurologic: Yes (TIA, NEUROPATHY (R/T ARTHRTIS)) Psychiatric: Yes Reproductive: No Respiratory: Yes (LUNG CA; LOBECTOMY L LUNG, COPD) Migraines: Yes (NOT SINCE LOOSING SIGHT IN RT EYE) Radiation Therapy: No Renal Failure: No Seizures: No Sickle Cell Disease: No Sleep Apnea: No Thyroid Disease: Yes (HYPOTHYROIDISM) Ulcer: No Past Surgical History Abdominal Surgery: No AICD: No Body Medical Devices: DERRELL IN RIGHT LEG Cardiac Surgery: No Ear Surgery: No Endocrine Surgery: Yes (THYROIDECTOMY) Eye Surgery: Yes (CATARACT) Genitourinary Surgery: No Gynecologic Surgery: Yes (HYSTERECTOMY) Hysterectomy: Yes Joint Replacement: No Oral Surgery: No Pacemaker: No Thoracic Surgery: Yes (LOBECTOMY L LUNG CA) Other Surgery: Yes (SKIN CANCER REMOVAL) Social History Alcohol Use: No Tobacco Use: No Substance Use: No Allergies-Medications (Allergen,Severity, Reaction): Coded Allergies: Sulfa (Sulfonamide Antibiotics) (Verified Allergy, Severe, Hives, 11/18/17) bacitracin (Verified Allergy, Severe, RASH-PT DOESN'T REMEMBER, 11/18/17) diatrizoate meglumine (Verified Allergy, Severe, HIVES, 11/18/17) gadobenic acid (Verified Allergy, Severe, HIVES, 11/18/17) gadodiamide (Verified Allergy, Severe, HIVES, 11/18/17) gadoteridol (Verified Allergy, Severe, HIVES, 11/18/17) gramicidin D (Verified Allergy, Severe, RASH, 11/18/17) iodixanol (Verified Allergy, Severe, HIVES, 11/18/17) iohexol (Verified Allergy, Severe, HIVES, 11/18/17) neomycin (Verified Allergy, Severe, RASH, 11/18/17) penicillin G (Verified Allergy, Severe, RASH HIVES, 11/18/17) polymyxin B (Verified Allergy, Severe, RASH, 11/18/17) NSAIDS (Non-Steroidal Anti-Inflamma (Verified Adverse Reaction, Severe, R/ T HIATAL HERNIA, 11/18/17) Reported Meds & Prescriptions Reported Meds & Active Scripts Active Cardizem CD 24 HR (Diltiazem CD 24 HR) 180 Mg Caper 180 Mg PO DAILY Reported Duoneb (Ipratropium-Albuterol Neb) 0.5-2.5 Mg/3 Ml Neb 1 Nebule INH Q6HR NEB Furosemide 40 Mg Tab 40 Mg PO BID Vistaril (Hydroxyzine Pamoate) 25 Mg Cap 25 Mg PO Q6H PRN Ketorolac Opth Drops 0.5% Drops 1 Drop LEFT EYE QID 28 Days Pred Forte Opth 1% (Prednisolone Acetate Opth 1%) 1% Susp 1 Drop LEFT EYE QID 28 Days Vigamox Opth Drops (Moxifloxacin Opth Drops) 0.5 % Soln 1 Drop LEFT EYE QID Eliquis (Apixaban) 5 Mg Tab 5 Mg PO BID Prolia Inj (Denosumab) 60 Mg/Ml Inj 60 Mg SQ Q180D Methotrexate 2.5 Mg Tab 2.5 Mg PO Q7D Synthroid (Levothyroxine Sodium) 75 Mcg Tab 75 Mcg PO DAILY Review of Systems Except as stated in HPI: all other systems reviewed are Neg Physical Exam Narrative GENERAL: Well developed, well-nourished, obese in moderate distress. SKIN: Focused skin assessment warm/dry. Right thigh-lateral aspect appears erythematous. 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 HEAD: Atraumatic. Normocephalic. EYES: Pupils equal and round. No scleral icterus. No injection or drainage. ENT: No nasal bleeding or discharge. Mucous membranes pink. dry mucous membranes NECK: Trachea midline. No JVD. CARDIOVASCULAR: Regular rate and rhythm. No murmur appreciated. RESPIRATORY: No accessory muscle use. Clear to auscultation. Breath sounds equal bilaterally. GASTROINTESTINAL: Abdomen soft, non-tender, nondistended. MUSCULOSKELETAL: No obvious deformities. No clubbing. No cyanosis. +3 pitting edema NEUROLOGICAL: Awake and alert. No obvious cranial nerve deficits. Motor grossly within normal limits. Normal speech. PSYCHIATRIC: Appropriate mood and affect; insight and judgment normal. Data Data Last Documented VS Orders Orders Complete Blood Count With Diff (11/18/17 19:33) Comprehensive Metabolic Panel (11/18/17 19:33) B-Type Natriuretic Peptide (11/18/17 19:33) Act Partial Throm Time (Ptt) (11/18/17:33) Prothrombin Time / Inr (Pt) (11/18/17:33) Magnesium (Mg) (11/18/17 19:33) Ckmb (Isoenzyme) Profile (11/18/17:33) Troponin I (11/18/17:33) Urinalysis - C+S If Indicated (11/18/17:33) Blood Culture (11/18/17:33) Iv Access Insert/Monitor (11/18/17 19:33) Electrocardiogram (11/18/17:33) Ecg Monitoring (11/18/17 19:33) Oximetry (11/18/17:33) Oxygen Administration (11/18/17 19:33) Chest, Single Ap (11/18/17 19:33) Sodium Chloride 0.9% Flush (Ns Flush) (11/18/17 19:45) Sepsis Workup Initiated (11/18/17 ) Lactic Acid Sepsis Protocol (11/18/17 19:33) Urinary Catheter Insert/Apply (11/18/17 19:38) Vancomycin Inj (Vancomycin Inj) (11/18/17 19:45) Aztreonam Inj (Azactam Inj) (11/18/17 19:41) Metronidazole 500 Mg Inj (Flagyl 500 Mg (11/18/17 19:41) Sodium Chlor 0.9% 250 Ml Inj (Ns 250 Ml (11/18/17 20:00) Albumin 25% Inj (Albumin 25% Inj) (11/18/17 22:00) CKMB (11/18/17 21:40) CKMB% (11/18/17 21:40) Admit Order (Ed Use Only) (11/18/17 23:05) Labs Laboratory Tests Test 11/18/17 21:40 11/18/17 22:33 White Blood Count 20.4 TH/MM3 Red Blood Count 4.77 MIL/MM3 Hemoglobin 15.5 GM/DL Hematocrit 46.3 % Mean Corpuscular Volume 96.9 FL Mean Corpuscular Hemoglobin 32.5 PG Mean Corpuscular Hemoglobin Concent 33.5 % Red Cell Distribution Width 17.4 % Platelet Count 218 TH/MM3 Mean Platelet Volume 9.1 FL Neutrophils (%) (Auto) 90.6 % Lymphocytes (%) (Auto) 6.0 % Monocytes (%) (Auto) 3.3 % Eosinophils (%) (Auto) 0.0 % Basophils (%) (Auto) 0.1 % Neutrophils # (Auto) 18.5 TH/MM3 Lymphocytes # (Auto) 1.2 TH/MM3 Monocytes # (Auto) 0.7 TH/MM3 Eosinophils # (Auto) 0.0 TH/MM3 Basophils # (Auto) 0.0 TH/MM3 CBC Comment AUTO DIFF Differential Total Cells Counted 100 Neutrophils % (Manual) 80 % Band Neutrophils % 17 % Lymphocytes % 3 % Neutrophils # (Manual) 19.8 TH/MM3 Differential Comment FINAL DIFF MANUAL Toxic Vacuolation PRESENT Platelet Estimate NORMAL Platelet Morphology Comment NORMAL Red Cell Morphology Comment NORMAL Prothrombin Time 14.0 SEC Prothromb Time International Ratio 1.4 RATIO Activated Partial Thromboplast Time 32.7 SEC Blood Urea Nitrogen 29 MG/DL Creatinine 1.89 MG/DL Random Glucose 101 MG/DL Total Protein 7.0 GM/DL Albumin 2.5 GM/DL Calcium Level 10.3 MG/DL Magnesium Level 1.8 MG/DL Alkaline Phosphatase 124 U/L Aspartate Amino Transf (AST/SGOT) 39 U/L Alanine Aminotransferase (ALT/SGPT) 22 U/L Total Bilirubin 4.2 MG/DL Sodium Level 139 MEQ/L Potassium Level 4.0 MEQ/L Chloride Level 102 MEQ/L Carbon Dioxide Level 25.0 MEQ/L Anion Gap 12 MEQ/L Estimat Glomerular Filtration Rate 25 ML/MIN Lactic Acid Level 3.1 mmol/L Total Creatine Kinase 143 U/L Creatine Kinase MB 3.2 NG/ML Troponin I 2.59 NG/ML B-Type Natriuretic Peptide 3568 PG/ML Urine Color YELLOW Urine Turbidity HAZY Urine pH 5.0 Urine Specific [place] 1.014 Urine Protein TRACE mg/dL Urine Glucose (UA) NEG mg/dL Urine Ketones NEG mg/dL Urine Occult Blood SMALL Urine Nitrite NEG Urine Bilirubin NEG Urine Urobilinogen 2.0 MG/DL Urine Leukocyte Esterase NEG Urine RBC 7 /hpf Urine WBC 3 /hpf Urine Squamous Epithelial Cells 1 /hpf Urine Amorphous Sediment RARE Urine Hyaline Casts 34 /lpf Urine Mucus FEW /lpf Microscopic Urinalysis Comment CULT NOT INDICATED MDM Medical Decision Making Medical Screen Exam Complete: Yes Emergency Medical Condition: Yes Differential Diagnosis Sepsis, respiratory failure, pneumonia, congestive heart failure exacerbation, medication noncompliance Narrative Course 82-year-old female with a history of congestive heart failure, lung cancer, rheumatoid and psoriatic arthritis, hypothyroidism, atrial fibrillation on Eliquis, COPD, h/o NSTEMI presents emergency department from [facility] complaining of shortness of breath, fever, chills for about 2 days. Patient states that she was showering when she felt more short of breath. EVAC states that the facility mentioned an increase of her white blood cell count and they were concerned about a developing pneumonia. Patient was initially hypotensive at blood pressure 70/40. Responsive to 250 cc normal saline to systolic in the 80s-90s. Says that patient has also had a temperature of 100.7. Patient states she has not had antibiotics because of ordering issues with her facility. She apparently is at [facility] as a rehab facility after her admission to this hospital earlier this month. Sepsis protocol initiated. Vancomycin, aztreonam, and metronidazole initiated. Fluids administered cautiously as she has a history of CHF and it appears she may be fluid overloaded. EVAC gave 250 cc normal saline IV fluids for blood pressure and her blood pressure initially was in the 140 systolic however, her blood pressure did drop back to the 85-99 systolic range. Because of her persistent hypotension, albumin administered to reduce fluid shift interstitial spaces. Her blood pressure remained stable in the 90s systolic. Labs are significant for leukocytosis at 20.4, lactic acid 3.1, troponin 2.59, BNP 3568, Albumin 2.5 CXR consistent with CHF and PNA. Please see Dr. Cooper's note for further information. Patient is admitted under Dr. Delcid to the ICU for congestive heart failure, sepsis, elevated troponin, Pneumonia. Diagnosis Primary Impression: CHF (congestive heart failure) Qualified Codes: I50.33 - Acute on chronic diastolic (congestive) heart failure Additional Impressions: Sepsis Qualified Codes: A41.9 - Sepsis, unspecified organism Pneumonia Elevated troponin Condition: Stable Clara Horvath Nov 18, 2017 19:47
[2017-11-18] MEDS ORDERED: SODIUM CHLOR 0.9% 250 ML INJ 250 ML IV ONE (20:00)
[2017-11-18] MEDS ORDERED: VIST25CA PO (20:36)
[2017-11-18] MEDS ORDERED: IPRASOL INH (20:36)
[2017-11-18] MEDS ORDERED: FURO40TA PO (20:36)
[2017-11-18 20:41] VITALS: BP 142/59; PULSE 113; RESP 22; O2SAT 98
--- NOTE | 2017-11-18 20:47 | RADRPT ---
EXAM DATE/TIME: 11/18/2017 19:46 [facility] COMPARISON: CHEST SINGLE AP, March 28, 2016, 5:30. INDICATIONS : Shortness of breath. MEDICAL HISTORY : Carcinoma, lung. SURGICAL HISTORY : Lobectomy. Hysterectomy. ENCOUNTER: Initial ACUITY: 1 day PAIN SCORE: Non-responsive. LOCATION: Bilateral chest FINDINGS: The heart size is enlarged. The lungs demonstrate diffuse increased interstitial markings. There is f urther increased alveolar density seen in the medial right base. Significant effusions are not seen. CONCLUSION: Cardiomegaly with diffuse interstitial markings likely related to pulmonary edema and CHF. There alonso e focal consolidation or atelectasis of the right medial base. Jaycob Mar MD on November 18, 2017 at 20:44 Board Certified Radiologist. This report was verified electronically.
[2017-11-18 21:40] VITALS: BP 82/52; PULSE 116; RESP 20; O2SAT 96
[2017-11-18] MEDS ORDERED: ALBUMIN 25% INJ 50 ML IV ONE (22:00)
[2017-11-18 22:03] LABS: AUTOMATED NEUTROPHIL # 18.5 TH/MM3 (1.8-7.7); BASOPHIL % 0.1 % (0.0-2.0); HEMATOCRIT 46.3 % (35.0-46.0); HEMOGLOBIN 15.5 GM/DL (11.6-15.3); LYMPHOCYTE # 1.2 TH/MM3 (1.0-4.8); MEAN CELL VOLUME 96.9 FL (80.0-100.0); MEAN CORPUSCULAR HEMOGLOBIN 32.5 PG (27.0-34.0); MEAN CORPUSCULAR HGB CONC 33.5 % (32.0-36.0); MEAN PLATELET VOLUME 9.1 FL (7.0-11.0); MONO % 3.3 % (0.0-8.0); MONOCYTE # 0.7 TH/MM3 (0-0.9); NEUT % 90.6 % (16.0-70.0); PLATELET COUNT 218 TH/MM3 (150-450); RED BLOOD COUNT 4.77 MIL/MM3 (4.00-5.30); RED CELL DISTRIBUTION WIDTH 17.4 % (11.6-17.2); WHITE BLOOD COUNT 20.4 TH/MM3 (4.0-11.0)
[2017-11-18 22:07] VITALS: BP 112/55; PULSE 95; RESP 20; O2SAT 98
[2017-11-18 22:12] LABS: INTERNATIONAL NORMALIZED RATIO 1.4 RATIO
[2017-11-18 22:19] LABS: ALBUMIN 2.5 GM/DL (3.4-5.0); ALT (GPT) 22 U/L (10-53); AST (GOT) 39 U/L (15-37); BLOOD UREA NITROGEN 29 MG/DL (7-18); CALCIUM 10.3 MG/DL (8.5-10.1); CHLORIDE 102 MEQ/L (98-107); CREATININE 1.89 MG/DL (0.50-1.00); GLOMERULAR FILTRATION RATE 25 ML/MIN (>89); GLUCOSE,RANDOM 101 MG/DL (74-106); MAGNESIUM 1.8 MG/DL (1.5-2.5); SODIUM (NA) 139 MEQ/L (136-145)
[2017-11-18 22:22] LABS: LACTIC ACID SEPSIS PROTOCOL 3.1 mmol/L (0.4-2.0)
--- NOTE | 2017-11-18 22:22 | EKG ---
Date Performed: 11/18/2017 Time Performed: 19:33:11 PTAGE: 82 years EKG: ATRIAL FIBRILLATION WITH RAPID VENTRICULAR RESPONSE POSSIBLE LEFT VENTRICULAR HYPERTROPHY S T DEVIATION AND MODERATE T-WAVE ABNORMALITY ABNORMAL ECG PREVIOUS TRACING : 10/28/2017 17.59 Since the previous tracing, no significant change noted DOCTOR: Leslye Allred Interpretating Date/Time 11/18/2017 22:22:21
[2017-11-18 22:23] LABS: ALKALINE PHOSPHATASE 124 U/L (45-117); TOTAL BILIRUBIN ADULT 4.2 MG/DL (0.2-1.0)
[2017-11-18 22:31] LABS: TROPONIN I 2.59 NG/ML (0.02-0.05)
[2017-11-18 22:54] LABS: BANDS 17 % (0-6); LYMPHOCYTES 3 % (9-44); NEUTROPHIL # MANUAL DIFF 19.8 TH/MM3 (1.8-7.7); POLYS (SEG NEUTROPHILS) 80 % (16-70)
[2017-11-18 22:55] LABS: TOXIC VACUOLATION PRESENT (NONE SEEN)
[2017-11-18 22:56] VITALS: BP 86/48; PULSE 100; RESP 20; TEMP 102.6; O2SAT 96
[2017-11-18 23:01] LABS: AMORPHOUS SEDIMENT, URINE RARE; BILIRUBIN, URINE NEG (NEG); BLOOD, URINE SMALL (NEG); GLUCOSE,URINE NEG (NEG); HYALINE CAST, URINE 34 /lpf (RARE); KETONE, URINE NEG (NEG); MUCUS URINE FEW /lpf (OCC); NITRITE,URINE NEG (NEG); SQUAMOUS EPITHELIAL CELL URINE 1 /hpf (0-5); URINE COLOR YELLOW (YELLW/STRAW); URINE LEUKOCYTE ESTERASE NEG (NEG)
[2017-11-18] MEDS ORDERED: ACETAMINOPHEN 500 MG CPLT PO ONE (23:15)
[2017-11-19] VITALS (20 sets, daily range): BP systolic 77–166; BP diastolic 39–81; PULSE 74–121; RESP 20–31; TEMP 97.9–98.8; O2SAT 89–99
--- NOTE | 2017-11-19 00:19 | HHI.HP ---
[facility] Service Critical Care Medicine Primary Care Physician Maricruz Vela MD Admission Diagnosis Sepsis, Pneumonia, Elevated troponin Diagnosis: Travel History International Travel<30 Days: No Contact w/Intl Traveler <30 Da: No Traveled to Known Affected Are: No Sepsis Criteria SIRS Criteria (2 or more): Temp > 100.9 or < 96.8, Heart rate over 90 Sepsis Criteria (SIRS+source): Infect source susp/known Severe Sepsis (+one): Organ Dysfunction, Hypotension, Lactate >2 Criteria Outcome: Meets severe sepsis criteria History of Present Illness 82-year-old female with past medical history of lung cancer, atrial fibrillation on chronic anticoagulation with Eliquis, chronic diastolic heart failure, hypothyroidism, rheumatoid arthritis on methotrexate, who presents from [facility]. She states that for the last 3 nights she has experienced chills and rigors. She has had some sore throat, dry nonproductive cough, and shortness of breath x3 days. Denies chest pain, dysuria or flank pain. She has cellulitis of right hip/buttocks area on exam. She had anorexia for a couple of days but no vomiting, abdominal discomfort or diarrhea. Past Family Social History Allergies: Coded Allergies: Sulfa (Sulfonamide Antibiotics) (Verified Allergy, Severe, Hives, 11/18/17) bacitracin (Verified Allergy, Severe, RASH-PT DOESN'T REMEMBER, 11/18/17) diatrizoate meglumine (Verified Allergy, Severe, HIVES, 11/18/17) gadobenic acid (Verified Allergy, Severe, HIVES, 11/18/17) gadodiamide (Verified Allergy, Severe, HIVES, 11/18/17) gadoteridol (Verified Allergy, Severe, HIVES, 11/18/17) gramicidin D (Verified Allergy, Severe, RASH, 11/18/17) iodixanol (Verified Allergy, Severe, HIVES, 11/18/17) iohexol (Verified Allergy, Severe, HIVES, 11/18/17) neomycin (Verified Allergy, Severe, RASH, 11/18/17) penicillin G (Verified Allergy, Severe, RASH HIVES, 11/18/17) polymyxin B (Verified Allergy, Severe, RASH, 11/18/17) NSAIDS (Non-Steroidal Anti-Inflamma (Verified Adverse Reaction, Severe, R/ T HIATAL HERNIA, 11/18/17) Past Medical History Lung cancer s/p left lower lobectomy Psoriatic arthritis Hypothyroidism NSTEMI Atrial fibrillation on anticoagulation with Eliquis TIA Anxiety Right eye blindness Past Surgical History Left lower lobectomy Bilateral nephrectomy Hysterectomy Thyroidectomy Right femur maria fernanda Left cataract surgery 10/22/17 Skin cancer removal Reported Medications Methotrexate 2.5 mg by mouth weekly DuoNeb every 6 hours as needed Eliquis 5 mill grams by mouth twice a day Diltiazem CD 180 mg by mouth daily Vistaril 25 mg by mouth every 6 hours as needed for anxiety Lasix 40 mg by mouth twice a day Moxifloxacin ophthalmic 1 drop left eye 4 times a day Pred forte one drop left eye 4 times a day Ketorolac ophthalmic 0.5% 1 drop left eye 4 times a day Synthroid 75 g Prolia 60 mg subcutaneous every 180 day Family History Father at age 62 from lymphoma Mother "had a slight heart problem" and at age 74 Social History She is a former smoker but quit 12 years ago She states she used to drink one cocktail per night but hasn't had an an alcoholic beverage in many years No illicit drug use She resides at [facility], [place] Physical Exam Vital Signs Vital Signs Date Time Temp Pulse Resp B/P (MAP) Pulse Ox O2 Delivery O2 Flow Rate FiO2 11/18/17 22:56 102.6 100 20 86/48 (61) 96 Nasal Cannula 2.00 11/18/17 22:07 95 20 112/55 (74) 98 Nasal Cannula 2.00 11/18/17 21:40 116 20 82/52 (62) 96 2.00 11/18/17 20:41 113 22 142/59 (86) 98 Nasal Cannula 3.00 11/18/17 19:37 108 20 97 Nasal Cannula 2.00 11/18/17 19:37 97 Nasal Cannula 2.00 11/18/17 19:28 99.0 126 28 107/55 (72) 97 Physical Exam GENERAL: Overweight female who is sitting up in ED stretcher, ill appearing. SKIN: Warm to touch. There is swelling of BLE with 2+ edema. There is erythema and warmth overlying the right tib/fib area. There is erythema and induration primarily overlying lateral right hip and buttocks. Extends down lateral Right thigh. Compartments soft. No crepitus. Tolerates passive range of motion. Borders marked with pen. Dottie intertrigo present bilateral inguinal creases and under breasts bilaterally. There is some linear skin breakdown left inguinal crease. HEAD: Atraumatic. Normocephalic. EYES: Pupils equal and round, 2mm and sluggishly reactive bilat. No scleral icterus. No injection or drainage. ENT: No nasal bleeding or discharge. Mucous membranes pink and moist. NECK: Trachea midline. No JVD. CARDIOVASCULAR: irregularly irregular. No murmurs rubs or gallops appreciated. . RESPIRATORY: Mildly tachypneic but appears comfortable. Rales left base. No wheezes or rhonchi. GASTROINTESTINAL: Abdomen soft, non-tender, nondistended. Bowel sounds present : Saeed in place with jaleel urine. MUSCULOSKELETAL: Extremities without clubbing, cyanosis. 2+-3 bilateral lower extremity edema, R>L. NEUROLOGICAL: Awake and alert. Oriented to self, hospital, year. No obvious cranial nerve deficits. Motor grossly within normal limits. Normal speech. Laboratory Laboratory Tests Test 11/18/17 21:40 11/18/17 22:33 White Blood Count 20.4 Red Blood Count 4.77 Hemoglobin 15.5 Hematocrit 46.3 Mean Corpuscular Volume 96.9 Mean Corpuscular Hemoglobin 32.5 Mean Corpuscular Hemoglobin Concent 33.5 Red Cell Distribution Width 17.4 Platelet Count 218 Mean Platelet Volume 9.1 Neutrophils (%) (Auto) 90.6 Lymphocytes (%) (Auto) 6.0 Monocytes (%) (Auto) 3.3 Eosinophils (%) (Auto) 0.0 Basophils (%) (Auto) 0.1 Neutrophils # (Auto) 18.5 Lymphocytes # (Auto) 1.2 Monocytes # (Auto) 0.7 Eosinophils # (Auto) 0.0 Basophils # (Auto) 0.0 CBC Comment AUTO DIFF Differential Total Cells Counted 100 Neutrophils % (Manual) 80 Band Neutrophils % 17 Lymphocytes % 3 Neutrophils # (Manual) 19.8 Differential Comment FINAL DIFF MANUAL Toxic Vacuolation PRESENT Platelet Estimate NORMAL Platelet Morphology Comment NORMAL Red Cell Morphology Comment NORMAL Prothrombin Time 14.0 Prothromb Time International Ratio 1.4 Activated Partial Thromboplast Time 32.7 Blood Urea Nitrogen 29 Creatinine 1.89 Random Glucose 101 Total Protein 7.0 Albumin 2.5 Calcium Level 10.3 Magnesium Level 1.8 Alkaline Phosphatase 124 Aspartate Amino Transf (AST/SGOT) 39 Alanine Aminotransferase (ALT/SGPT) 22 Total Bilirubin 4.2 Sodium Level 139 Potassium Level 4.0 Chloride Level 102 Carbon Dioxide Level 25.0 Anion Gap 12 Estimat Glomerular Filtration Rate 25 Lactic Acid Level 3.1 Total Creatine Kinase 143 Creatine Kinase MB 3.2 Troponin I 2.59 B-Type Natriuretic Peptide 3568 Urine Color YELLOW Urine Turbidity HAZY Urine pH 5.0 Urine Specific Gay 1.014 Urine Protein TRACE Urine Glucose (UA) NEG Urine Ketones NEG Urine Occult Blood SMALL Urine Nitrite NEG Urine Bilirubin NEG Urine Urobilinogen 2.0 Urine Leukocyte Esterase NEG Urine RBC 7 Urine WBC 3 Urine Squamous Epithelial Cells 1 Urine Amorphous Sediment RARE Urine Hyaline Casts 34 Urine Mucus FEW Microscopic Urinalysis Comment CULT NOT INDICATED Date/Time Source Procedure Growth Status 11/18/17 21:40 Blood Peripheral Aerobic Blood Culture Pending Received 11/18/17 21:40 Blood Peripheral Anaerobic Blood Culture Pending Received 11/18/17 23:29 Nasal Aspirate Influenza Types A,B Antigen (BRAULIO) - Final NEGATIVE FOR FLU A AND B ANTIGEN.... Complete 11/18/17 22:33 Urine Catheterized Urine Legionella Antigen Pending Received 11/18/17 22:33 Urine Catheterized Urine Streptococcus pneumoniae Antigen (M Pending Received Result Diagram: 11/18/17213911/18/17 214 Septic Shock Reassessment Septic shock perfusion: reassessment completed Caprini VTE Risk Assessment Caprini VTE Risk Assessment: Mod/High Risk (score >= 2) Caprini Risk Assessment Model Point Value = 1 Point Value = 2 Point Value = 3 Point Value = 5 Age 41-60 Minor surgery BMI > 25 kg/m2 Swollen legs Varicose veins or History of unexplained or recurrent spontaneous Oral contraceptives or hormone replacement Sepsis (< 1 month) Serious lung disease, including pneumonia (< 1 month) Abnormal pulmonary function Acute myocardial infarction Congestive heart failure (< 1 month) History of inflammatory bowel disease Medical patient at bed rest Age 61-74 Arthroscopic surgery Major open surgery (> 45 min) Laparoscopic surgery (> 45 min) Malignancy Confined to bed (> 72 hours) Immobilizing plaster cast Central venous access Age >= 75 History of VTE Family history of VTE Factor V Leiden Prothrombin [id number] Lupus anticoagulant Anticardiolipin antibodies Elevated serum homocysteine Heparin-induced thrombocytopenia Other congenital or acquired thrombophilia Stroke (< 1 month) Elective arthroplasty Hip, pelvis, or leg fracture Acute spinal cord injury (< 1 month) Prophylaxis Regimen Total Risk Factor Score Risk Level Prophylaxis Regimen 0-1 Low Early ambulation 2 Moderate Order ONE of the following: *Sequential Compression Device (SCD) *Heparin 5000 units SQ BID 3-4 Higher Order ONE of the following medications: *Heparin 5000 units SQ TID *Enoxaparin/Lovenox 40 mg SQ daily (WT < 150 kg, CrCl > 30 mL/min) *Enoxaparin/Lovenox 30 mg SQ daily (WT < 150 kg, CrCl > 10-29 mL/min) *Enoxaparin/Lovenox 30 mg SQ BID (WT < 150 kg, CrCl > 30 mL/min) AND/OR *Sequential Compression Device (SCD) 5 or more Highest Order ONE of the following medications: *Heparin 5000 units SQ TID (Preferred with Epidurals) *Enoxaparin/Lovenox 40 mg SQ daily (WT < 150 kg, CrCl > 30 mL/min) *Enoxaparin/Lovenox 30 mg SQ daily (WT < 150 kg, CrCl > 10-29 mL/min) *Enoxaparin/Lovenox 30 mg SQ BID (WT < 150 kg, CrCl > 30 mL/min) AND *Sequential Compression Device (SCD) Assessment and Plan Assessment and Plan NEURO: Acute metabolic encephalopathy History of TIA Anxiety Hold sedatives medication OPHTHO: Cataract s/p phacoemulsification and intraocular lens implant left eye 10/22/17 Dr. Skip Laureano eye blindness Continue Pred Forte/Vigamox/ Ketorolac ophthalmic RESP: History of lung cancer status post left lower lobectomy COPD CXR with vasc congestion, suspect related to diastolic dysfunction and Afib RVR as EF was preserved on prior Echo. Will rate control as per below. NC wean as tolerated. DuoNeb every 6 hours Albuterol every 2 hours as needed CV: Chronic Atrial fibrillation with RVR on chronic anticoagulation with Eliquis NSTEMI, suspect type II due to Afib RVR/sepsis Chronic diastolic heart failure Initially hypotensive in ED but after NS 250 bolus and albumin that was given in ED. BP improved to SBP 140s with A fib RVR in 130s. Attempted rate control with cardizem drip and there was initial rate control with rate in 90s and normotensive however BP drifted down and patient appeared dusky and poorly perfused. Bedside Echo hyperdynamic with inadequate filling, thickened ventricular wall, biatrial dilation. CVL placed, CVP 8; will need to fluid resuscitate during sepsis in spite of BNP >3000. Stopped cardizem, started amiodarone for rate control as this will be necessary for ventricular filling. Bolus LR 1 L. Neosynephrine if needed for MAP >65. Followup formal echo. Troponin elevation likely type II NSTEMI due to sepsis and diastolic heart failure. Trend troponin. Eliquis held. Heparin drip for A fib/NSTEMI. Cardiology consulted. Patient is known to Dr. Massey GI: Heart healthy diet FEN/RENAL: CELESTINO overlying Chronic kidney disease stage III Saeed inserted. Monitor intake and output as marker of perfusion. ID: Severe sepsis Cellulitis R leg Leukocytosis, bandemia PCN allergy - hives and swelling Immunocompromised state Aztreonam/Vancomycin for R leg cellulitis which is source of sepsis. Clinically do not suspect abscess but will obtain CT to evaluate. Follow-up blood cultures. Obtain influenza screen which was negative. Obtain urine Legionella and pneumococcal antigen. ID consulted RHEUM: Psoriatic arthritis Hold methotrexate 2.5 mg po weekly due to sepsis. HEME: U/s to evaluate for DVT in right leg though less likely given she has been on eliquis at [facility]. ENDO: Hypothyroidism TSH elevated. Resume synthroid 75 mcg for now, may push dose upward but would hold off on titration now in view of A fib RVR and active sepsis. PROPH: Heparin drip provides DVT prophylaxis. Famotidine for stress ulcer prophylaxis ACCESS: . R radial art line placed 11/19. R IJ CVL placed 11/19 (anticoagulated so IJ site chosen) #1. Multiple visits to patient's bedside to reassess hemodynamics and discussion with nurse by telephone. Patient is critically ill with high risk for further decompensation. Her prognosis is guarded. FULL CODE per my discussion with patient in ED. She is no longer capacitated for medical decision making, worsening toxic metabolic encephalopathy. CCT 60 minutes Brenda Delcid MD Nov 19, 2017 00:19
[2017-11-19] MEDS ORDERED: Vancomycin Consult Pharmacy 1 EA OTHER SCH (00:45)
[2017-11-19] MEDS ORDERED: LACTULOSE SYRUP 20 GM/30 ML CUP PO PRN (01:00)
[2017-11-19] MEDS ORDERED: SODIUM CHLORIDE 0.9% FLUSH 10 ML FLUSH IV FLUSH PRN (01:00)
[2017-11-19] MEDS ORDERED: MISCELLANEOUS NURSING INFORMATION XX SCH (01:00)
[2017-11-19] MEDS ORDERED: SENNOSIDES 8.6 MG TAB PO PRN (01:00)
[2017-11-19] MEDS ORDERED: MAGNESIUM HYDROXIDE SUSP 30 ML CUP PO PRN (01:00)
[2017-11-19] MEDS ORDERED: RESP: ALBUTEROL 2.5 MG/3 ML NEB (PRN) INH (01:00)
[2017-11-19] MEDS ORDERED: BISACODYL 10 MG SUPP RECTAL PRN (01:00)
[2017-11-19] MEDS ORDERED: ONDANSETRON HCL 4 MG/2 ML VIAL IV PUSH PRN (01:00)
[2017-11-19] MEDS ORDERED: ASPIRIN 81 MG CHEW TAB CHEW ONE (01:15)
[2017-11-19] MEDS ORDERED: DILTIAZEM INJ 125 MG in SODIUM CHLORIDE 0.9% INJ 100 ML IV PRN (01:30)
[2017-11-19] MEDS ORDERED: DILTIAZEM HCL 50 MG/10 ML VIAL IV ONE (01:45)
[2017-11-19] MEDS ORDERED: ACETAMINOPHEN 1000 MG/100 ML 100 ML IV ONE (01:45)
--- NOTE | 2017-11-19 02:17 | RADRPT ---
EXAM DATE/TIME: 11/19/2017 01:54 [facility] COMPARISON: No previous studies available for comparison. INDICATIONS : Right hip pain. RADIATION DOSE: 25.09 CTDIvol (mGy) MEDICAL HISTORY : Non-responsive. SURGICAL HISTORY : Non-responsive. ENCOUNTER: Initial ACUITY: 1 day PAIN SCALE: 6/10 LOCATION: Right hip TECHNIQUE: Volumetric scanning of the hip was performed. Using automated exposure control and adjustment of the mA and/or kV according to patient size, radiation dose was kept as low as reasonably achievable to o btain optimal diagnostic quality images. DICOM format image data is available electronically for rev iew and comparison. FINDINGS: BONES: Mild degenerative changes of the right hip. Intramedullary maria fernanda in the right proximal femur. No fractu re seen JOINTS: No evidence of joint narrowing or effusion. SOFT TISSUES: Muscles, tendons and neurovascular structures are grossly unremarkable. No evidence of mass, organize d fluid collection, or foreign body. CONCLUSION: Mild degenerative changes right hip without fracture. Odell Pritchett MD on November 19, 2017 at 2:13 Board Certified Radiologist. This report was verified electronically.
[2017-11-19 03:01] LABS: INTERNATIONAL NORMALIZED RATIO 1.5 RATIO; PROTHROMBIN TIME - PATIENT 14.7 SEC (9.8-11.6)
[2017-11-19] MEDS: RESP: ALBUTEROL 2.5 MG/IPRATROPIUM 0.5 MG NEB (SCH) INH ×4 (03:21→22:21)
[2017-11-19] MEDS ORDERED: MAGNESIUM SULFATE 1 GM PREMIX 100 ML IV ONE (03:45)
[2017-11-19] MEDS: AZTREONAM INJ 2,000 MG in SODIUM CHLORIDE 0.9% INJ 100 ML IV SCH ×2 (04:16→15:03)
[2017-11-19] MEDS: HEPARIN-D5W 25,000 U/250 ML 250 ML IV PRN ×2 (05:09→19:12)
--- NOTE | 2017-11-19 07:24 | PD.PROCEDR ---
Procedure Note Procedure DATE: 11/19/17 PROCEDURE: Right radial arterial catheter placement INDICATION: Hemodynamic monitoring for shock DETAILS OF PROCEDURE The patient was placed in supine position. The skin was cleansed with Chloraprep. Additional barrier precautions included large sterile drape, sterile gloves, sterile gown, face mask, and hat. 1% lidocaine was used for local anesthesia. Under direct ultrasound guidance and on the first attempt, the artery was accessed with Arrow 20 gauge radial artery catheter. The guide wire was advanced. Using Seldinger technique 20-gauge gauge arterial catheter was placed. The needle and guide wire were removed. The catheter was connected to a transducer line and flushed with saline. The video monitor displayed normal arterial wave forms. The catheter was secured with 2-0 silk. A sterile dressing with antibiotic disc was applied. ESTIMATED BLOOD LOSS: minimal COMPLICATIONS: None Brenda Delcid MD Nov 19, 2017 07:24
[2017-11-19] MEDS ORDERED: TERBUTALINE INJ 1 MG/ML AMP SQ PRN (07:30)
[2017-11-19] MEDS ORDERED: LACTATED RINGER'S 1000 ML INJ 1,000 ML IV ONE (07:30)
--- NOTE | 2017-11-19 07:57 | PD.PROCEDR ---
Procedure Note Procedure DATE: CENTRAL LINE PLACEMENT: Right internal jugular vein. INDICATION: Central venous access CONSENT Patient consented to procedure after discussion of risks, benefits, alternatives. DESCRIPTION OF THE PROCEDURE The patient was placed in supine position, Trendelenburg. The skin was cleansed with Chloraprep. Additional barrier precautions included large sterile drape, sterile gloves, sterile gown, face mask, and hat. 1 % lidocaine was used for local anesthesia. Under direct ultrasound guidance and on single attempt, the vein was accessed with an introducer needle. The guide wire was advanced and the tract was dilated. Using Seldinger technique a 7 Spanish 20 cm antimicrobial coated triple-lumen catheter was advanced to a depth of 18 centimeters. The guide wire was removed. All ports had good return of dark venous blood and flushed easily with saline. The central line was secured with Stat-lock. A sterile dressing with antibiotic disc was applied. ESTIMATED BLOOD LOSS: Minimal COMPLICATIONS: No apparent complications. STAT chest x-ray is pending. Brenda Delcid MD Nov 19, 2017 07:57
[2017-11-19] MEDS ORDERED: AMIODARONE INJ 150 MG in DEXTROSE 5% IN WATER 100ML INJ 97 ML IV ONE ×2 (08:30)
[2017-11-19] MEDS: SODIUM CHLORIDE 0.9% FLUSH 10 ML FLUSH IV FLUSH SCH ×2 (08:36→20:20)
--- NOTE | 2017-11-19 08:50 | RADRPT ---
EXAM DATE/TIME: 11/19/2017 08:12 [facility] COMPARISON: CHEST SINGLE AP, November 18, 2017, 19:46. INDICATIONS : Evaluate central line placement. MEDICAL HISTORY : Carcinoma, lung. SURGICAL HISTORY : Lobectomy. Hysterectomy. RT ORIF 03/28/16 ENCOUNTER: Subsequent ACUITY: 1 day PAIN SCORE: 0/10 LOCATION: Right chest FINDINGS: There continues to be increased interstitial markings bilaterally suggestive of pulmonary edema. This pattern is about the same compared to the prior exam. Heart size enlarged but stable. No definite pl eural effusions are seen. There is a new right-sided central line in place. There is no pneumothorax. A central line appears to be in good position. CONCLUSION: Right-sided central line in place. No evidence of pneumothorax. Subhash Garcia MD on November 19, 2017 at 8:47 Board Certified Radiologist. This report was verified electronically.
[2017-11-19] MEDS ORDERED: FAMOTIDINE 20 MG TAB PO SCH (09:00)
[2017-11-19] MEDS: PHENYLEPHRINE INJ 40 MG in DEXTROSE 5% IN WATE 500 ML INJ 496 ML IV PRN ×4 (09:04→17:13)
[2017-11-19] MEDS ORDERED: PHARMACY ORDERED LAB ONE (09:45)
[2017-11-19] MEDS: FAMOTIDINE 20 MG TAB PO SCH ×2 (09:46→20:20)
[2017-11-19] MEDS: DOCUSATE SODIUM 50 MG/SENNA 8.6 MG TAB PO SCH ×2 (09:46→20:20)
[2017-11-19] MEDS: AMIODARONE INJ 450 MG in SODIUM CHLOR 0.9% (EXCEL) INJ 241 ML IV PRN ×2 (09:49→18:12)
--- NOTE | 2017-11-19 10:24 | RADRPT ---
EXAM DATE/TIME: 11/19/2017 09:37 [facility] COMPARISON: No previous studies available for comparison. INDICATIONS : Bilateral leg swelling. MEDICAL HISTORY : Hypothyroidism. Peripheral vascular disease. Congestive heart failure. Migraines. Heart murmur. Afib. Myocardial infarction. Hypercholesterolemia. HTN. Carcinoma, lung. COPD. Dyspnea. GERD. Hiatal herni a. Arthritis. Rheumatoid arthritis. Osteoporosis. Osteoarthritis. Skin cancer. Depression. Anxiety. SURGICAL HISTORY : Hysterectomy.Thyroidectomy. Cataract surgery. Left lobecotmy. Right femur surgery. Right cheek skin c ancer removal. ENCOUNTER: Initial ACUITY: 2 day PAIN SCORE: 10/10 LOCATION: Bilateral leg. TECHNIQUE: Venous ultrasound of the left and right leg was performed from the inguinal ligament to the proximal calf. Real-time, color Doppler and spectral tracing, compression and augmentation techniques were us ed. FINDINGS: RIGHT LEG: There is normal compressibility of the deep venous system from the inguinal region to the proximal ca lf. No echogenic clot is seen in the lumen of the common femoral, femoral, popliteal, and posterior tibial veins. There is a normal response of the venous system to proximal and distal augmentation an d respiration. LEFT LEG: There is normal compressibility of the deep venous system from the inguinal region to the proximal ca lf. No echogenic clot is seen in the lumen of the common femoral, femoral, popliteal, and posterior tibial veins. There is a normal response of the venous system to proximal and distal augmentation an d respiration. CONCLUSION: Normal examination. Jaycob Adorno MD on November 19, 2017 at 10:22 Board Certified Radiologist. This report was verified electronically.
[2017-11-19] MEDS: NYSTATIN/TRIAMCINOLONE CREAM 15 GM TOPICAL SCH ×2 (11:19→20:21)
--- NOTE | 2017-11-19 11:58 | ECHRPT ---
Indication: shortness of breath CONCLUSIONS The left ventricular systolic function is hyperdynamic with an estimated ejection fraction in the ra nge of 65- 70%. moderate lvh There is assymetric septal hypertrophy. No regional wall motion abnormalities are present. The left atrial size is moderately dilated. The right atrial size is moderately dilated. Calcification of the posterior mitral valve leaflet. mild mitral valve regurgitation. *lvot and av gradient not performed on this study BP: 91 / 57 HR: 100 Rhythm: Atrial fibrillation MEASUREMENTS (Male / Female) Normal Values Technical Quality:Poor 2D ECHO LV Diastolic Diameter PLAX 4.0 cm 4.2 - 5.9 / 3.9 - 5.3 cm LV Systolic Diameter PLAX 2.2 cm IVS Diastolic Thickness 2.6 cm 0.6 - 1.0 / 0.6 - 0.9 cm LVPW Diastolic Thickness 1.2 cm 0.6 - 1.0 / 0.6 - 0.9 cm LV Relative Wall Thickness 1.0 LA Systolic Diameter LX 5.4 cm 3.0 - 4.0 / 2.7 - 3.8 cm M-MODE LV Diastolic Diameter MM 3.6 cm 4.2 - 5.9 / 3.9 - 5.3 cm LV Systolic Diameter MM 1.8 cm LV Ejection Fraction MM Teich 83.2 % LV Cardiac Index MM Teich 2022.6 cm/minm IVS Diastolic Thickness MM 2.8 cm 0.6 - 1.0 / 0.6 - 0.9 cm LVPW Diastolic Thickness MM 1.9 cm 0.6 - 1.0 / 0.6 - 0.9 cm LV Relative Wall Thickness MM 1.3 0.24 - 0.42 / 0.22 - 0.42 LV Mass Index MM 193.4 g/m 49 - 115 / 43 - 95 g/m FINDINGS LEFT VENTRICLE The left ventricular systolic function is hyperdynamic with an estimated ejection fraction in the ra nge of 65- 70%. There is assymetric septal hypertrophy. No regional wall motion abnormalities are present. LEFT ATRIUM The left atrial size is moderately dilated. RIGHT ATRIUM The right atrial size is moderately dilated. MITRAL VALVE Calcification of the posterior mitral valve leaflet. Trace mitral valve regurgitation. AORTIC VALVE Trileaflet aortic valve. No aortic valve stenosis or regurgitation. Bruce Santa MD, FACC, [facility] [place] (Electronically Signed) Final Date:19 November 2017 11:57
--- NOTE | 2017-11-19 12:17 | PD.ID.CON ---
History of Present Illness Service ID Consult Requested By Dr Delcid Reason for Consult sepsis R LE cellulitis Primary Care Physician Maricruz Vela MD Diagnoses: History of Present Illness 82 yo female with multiple med problems poor historian, @ b/s - also a poor historian Pt apparently has been having swollen BLE, tender painful and red RLE keep getting worse over days She has a of h/o congestive heart failure, atrial fibrillation, COPD and presented last night emergency department from [facility] complaining of shortness of breath, fever, chills for about 2 days. Patient presented hypotensive at blood pressure 70/40. Responsive to 250 cc normal saline to systolic in the 80s-90s. SHe is on pressors and still hypotensive, going up on neophynephrin is up Low grade fevers, temp of 100.7. CXR with diffuse pulmonary infiltrates Pt is very dry with hemoconcentration on CBC Blood clx neg @ 1 day Flu negative She apparently is at [facility] as a rehab facility after her admission to this hospital earlier this month. Had a large BM Review of Systems ROS Limitations: Poor Historian Except as stated in HPI: all other systems reviewed are Neg Past Family Social History Allergies: Coded Allergies: Sulfa (Sulfonamide Antibiotics) (Verified Allergy, Severe, Hives, 11/18/17) bacitracin (Verified Allergy, Severe, RASH-PT DOESN'T REMEMBER, 11/18/17) diatrizoate meglumine (Verified Allergy, Severe, HIVES, 11/18/17) gadobenic acid (Verified Allergy, Severe, HIVES, 11/18/17) gadodiamide (Verified Allergy, Severe, HIVES, 11/18/17) gadoteridol (Verified Allergy, Severe, HIVES, 11/18/17) gramicidin D (Verified Allergy, Severe, RASH, 11/18/17) iodixanol (Verified Allergy, Severe, HIVES, 11/18/17) iohexol (Verified Allergy, Severe, HIVES, 11/18/17) neomycin (Verified Allergy, Severe, RASH, 11/18/17) penicillin G (Verified Allergy, Severe, RASH HIVES, 11/18/17) polymyxin B (Verified Allergy, Severe, RASH, 11/18/17) NSAIDS (Non-Steroidal Anti-Inflamma (Verified Adverse Reaction, Severe, R/ T HIATAL HERNIA, 11/18/17) Past Medical History Lung cancer Psoriatic arthritis Hypothyroidism NSTEMI Atrial fibrillation on anticoagulation with Eliquis TIA Anxiety Right eye blindness Past Surgical History Left lower lobectomy Bilateral nephrectomy Hysterectomy Thyroidectomy Right femur maria fernanda Left cataract surgery 10/22/17 Skin cancer removal Active Ordered Medications Medications where reviewed in EMR Antibiotics Include: azactam vanco Family History Father at age 62 from lymphoma Mother "had a slight heart problem" and at age 74 Social History She is a former smoker but quit 12 years ago She states she used to drink one cocktail per night but hasn't had an an alcoholic beverage in many years No illicit drug use She resides at [facility] Physical Exam Vital Signs Vital Signs Date Time Temp Pulse Resp B/P (MAP) Pulse Ox O2 Delivery O2 Flow Rate FiO2 11/19/17 09:49 98 92/49 11/19/17 09:04 106 95/44 11/19/17 08:54 98 Nasal Cannula 2.00 11/19/17 08:36 95 92/50 11/19/17 06:00 100 11/19/17 06:00 100 91/57 11/19/17 04:16 118 90/54 11/19/17 04:00 98.4 105 29 90/54 (66) 89 11/19/17 04:00 105 11/19/17 03:22 97 Nasal Cannula 3.00 11/19/17 02:19 11/19/17 02:13 97.9 102 20 166/63 (97) 93 11/19/17 02:10 115 11/19/17 01:14 112 22 115/78 (90) 95 Nasal Cannula 2.00 11/19/17 00:18 121 22 142/50 (80) 97 Nasal Cannula 2.00 11/18/17 22:56 102.6 100 20 86/48 (61) 96 Nasal Cannula 2.00 11/18/17 22:07 95 20 112/55 (74) 98 Nasal Cannula 2.00 11/18/17 21:40 116 20 82/52 (62) 96 2.00 11/18/17 20:41 113 22 142/59 (86) 98 Nasal Cannula 3.00 11/18/17 19:37 108 20 97 Nasal Cannula 2.00 11/18/17 19:37 97 Nasal Cannula 2.00 11/18/17 19:28 99.0 126 28 107/55 (72) 97 Physical Exam CONSTITUTIONAL/GENERAL: This is an adequately nourished patient, in no apparent distress. TUBES/LINES/DRAINS: SKIN: No jaundice, rashes, or lesions. Ecchymoses on upper extremities. Skin temperature appropriate. Not diaphoretic. HEAD: Atraumatic. Normocephalic. EYES: Pupils equal and round and reactive. Extraocular motions intact. No scleral icterus. No injection or drainage. Fundi not examined. ENT: Hearing grossly normal. Nose without bleeding or purulent drainage. Oral mucosae is dry, mucosae is dry. NECK: Trachea midline. Supple, nontender. No palpable thyroid enlargement or nodularity. CARDIOVASCULAR: Regular rate and rhythm without murmurs, gallops, or rubs. No JVD. Peripheral pulses symmetric. RESPIRATORY/CHEST: Symmetric, unlabored respirations. Clear to auscultation. Breath sounds equal bilaterally. No wheezes, rales, or rhonchi. GASTROINTESTINAL: Abdomen soft, non-tender, nondistended. No hepato-splenomegaly , or palpable masses. No guarding. Bowel sounds present. GENITOURINARY: Without palpable bladder distension. Saeed catheter in place with cloudy dark urine MUSCULOSKELETAL: Extremities without clubbing, cyanosis, + 3-4 + edema soft pitting, up to waist Prominent erythema involving RLE , both lower lefg and thigh Thigh incision is well healed + mildly tender to palpation . No joint tenderness or effusion noted. No calf tenderness. No mottling or clubbing. LYMPHATICS: No palpable cervical or supraclavicular adenopathy. NEUROLOGICAL: Lethargic, easily arousable . Motor and sensory grossly within normal limits. Follows commands. Clear speech. Moves all extremities. PSYCHIATRIC: No obvious anxiety/depression. no apparent hallucinations or other psychotic thought process. Laboratory Laboratory Tests Test 11/18/17 21:40 11/18/17 22:33 11/19/17 02:15 11/19/17 02:17 White Blood Count 20.4 Red Blood Count 4.77 Hemoglobin 15.5 Hematocrit 46.3 Mean Corpuscular Volume 96.9 Mean Corpuscular Hemoglobin 32.5 Mean Corpuscular Hemoglobin Concent 33.5 Red Cell Distribution Width 17.4 Platelet Count 218 Mean Platelet Volume 9.1 Neutrophils (%) (Auto) 90.6 Lymphocytes (%) (Auto) 6.0 Monocytes (%) (Auto) 3.3 Eosinophils (%) (Auto) 0.0 Basophils (%) (Auto) 0.1 Neutrophils # (Auto) 18.5 Lymphocytes # (Auto) 1.2 Monocytes # (Auto) 0.7 Eosinophils # (Auto) 0.0 Basophils # (Auto) 0.0 CBC Comment AUTO DIFF Differential Total Cells Counted 100 Neutrophils % (Manual) 80 Band Neutrophils % 17 Lymphocytes % 3 Neutrophils # (Manual) 19.8 Differential Comment FINAL DIFF MANUAL Toxic Vacuolation PRESENT Platelet Estimate NORMAL Platelet Morphology Comment NORMAL Red Cell Morphology Comment NORMAL Prothrombin Time 14.0 14.7 Prothromb Time International Ratio 1.4 1.5 Activated Partial Thromboplast Time 32.7 31.6 Blood Urea Nitrogen 29 Creatinine 1.89 Random Glucose 101 Total Protein 7.0 Albumin 2.5 Calcium Level 10.3 Magnesium Level 1.8 Alkaline Phosphatase 124 Aspartate Amino Transf (AST/SGOT) 39 Alanine Aminotransferase (ALT/SGPT) 22 Total Bilirubin 4.2 Sodium Level 139 Potassium Level 4.0 Chloride Level 102 Carbon Dioxide Level 25.0 Anion Gap 12 Estimat Glomerular Filtration Rate 25 Lactic Acid Level 3.1 5.7 Total Creatine Kinase 143 Creatine Kinase MB 3.2 Troponin I 2.59 2.33 B-Type Natriuretic Peptide 3568 Urine Color YELLOW Urine Turbidity HAZY Urine pH 5.0 Urine Specific [place] 1.014 Urine Protein TRACE Urine Glucose (UA) NEG Urine Ketones NEG Urine Occult Blood SMALL Urine Nitrite NEG Urine Bilirubin NEG Urine Urobilinogen 2.0 Urine Leukocyte Esterase NEG Urine RBC 7 Urine WBC 3 Urine Squamous Epithelial Cells 1 Urine Amorphous Sediment RARE Urine Hyaline Casts 34 Urine Mucus FEW Microscopic Urinalysis Comment CULT NOT INDICATED Nasal Screen MRSA (PCR) MRSA NOT DETECTED Test 11/19/17 05:50 Lactic Acid Level 4.6 Date/Time Source Procedure Growth Status 11/18/17 21:40 Blood Peripheral Aerobic Blood Culture - Preliminary NO GROWTH IN 1 DAY Resulted 11/18/17 21:40 Blood Peripheral Anaerobic Blood Culture - Preliminary NO GROWTH IN 1 DAY Resulted 11/18/17 23:29 Nasal Aspirate Influenza Types A,B Antigen (BRAULIO) - Final NEGATIVE FOR FLU A AND B ANTIGEN.... Complete 11/18/17 22:33 Urine Catheterized Urine Legionella Antigen Pending Received 11/18/17 22:33 Urine Catheterized Urine Streptococcus pneumoniae Antigen (M Pending Received Result Diagram: 11/18/17213911/18/170 Imaging Last Impressions Lower Extremity Ultrasound 11/19/17 0000 Signed Impressions: Service Date/Time: Sunday, November 19, 2017 09:37 - CONCLUSION: Normal examination. Jaycob Adorno MD Lower Extremity CT 11/19/17 0000 Signed Impressions: Service Date/Time: Sunday, November 19, 2017 01:54 - CONCLUSION: Mild degenerative changes right hip without fracture. Odell Pritchett MD Chest X-Ray 11/19/17 0000 Signed Impressions: Service Date/Time: Sunday, November 19, 2017 08:12 - CONCLUSION: Right-sided central line in place. No evidence of pneumothorax. Subhash Garcia MD Assessment and Plan Assessment and Plan Sespsis Hemodyna,mically unstable Pulmonary edema ? unerlying PNA RLE cellulitis Diarrhea Allergic PCN: per pt - hives, Keflex - unknown chasnge azactam to meropenem in the viewof severe sepsis, worsening condition and risk for MDROs cont vanco add azithro if worse Karine Santa MD Nov 19, 2017 12:17
[2017-11-19] MEDS ORDERED: MISCELLANEOUS PHARMACY INFORMATION XX PRN (13:00)
[2017-11-19] MEDS ORDERED: ASP: ID consult, note reason in consult order PRN (13:00)
[2017-11-19 13:35] LABS: TROPONIN I 3.1 NG/ML (0.02-0.05)
[2017-11-19] MEDS: AZITHROMYCIN INJ 500 MG in SODIUM CHLOR 0.9% 250 ML INJ 250 ML IV SCH (14:53)
[2017-11-19] MEDS: MEROPENEM INJ 1,000 MG in SODIUM CHLORIDE 0.9% INJ 100 ML IV SCH (14:53)
[2017-11-19 14:54] LABS: AMORPHOUS SEDIMENT, URINE RARE; BACTERIA, URINE MOD /hpf; BILIRUBIN, URINE NEG (NEG); BLOOD, URINE MOD (NEG); GLUCOSE,URINE NEG (NEG); HYALINE CAST, URINE 81 /lpf (RARE); KETONE, URINE NEG (NEG); MUCUS URINE MANY /lpf (OCC); NITRITE,URINE NEG (NEG); PH, URINE 5.5 (5.0-8.5); URINE COLOR YELLOW (YELLW/STRAW); URINE LEUKOCYTE ESTERASE TRACE (NEG); WHITE BLOOD CELL CLUMPS OCC
[2017-11-19] MEDS: LEVOTHYROXINE SODIUM 75 MCG TAB PO SCH (15:03)
[2017-11-19] MEDS ORDERED: SODIUM CHLOR 0.9% 1000 ML INJ 1,000 ML IV ONE (16:45)
[2017-11-19] MEDS ORDERED: VANCOMYCIN INJ 1,500 MG in SODIUM CHLORID 0.9% 500 ML INJ 500 ML IV ONE (17:00)
[2017-11-19] MEDS: CLOPIDOGREL 75 MG TAB PO SCH (17:14)
[2017-11-19] MEDS: PHENYLEPHRINE HCL 160 MG/D5W 484 ML ADMIX IV PRN ×2 (20:38)
[2017-11-20] VITALS (16 sets, daily range): BP systolic 86–113; BP diastolic 51–75; PULSE 74–119; TEMP 97.7–98.7; O2SAT 94–99
[2017-11-20] MEDS: hydrOXYzine PAMOATE 25 MG CAP PO SCH ×4 (00:51→17:13)
[2017-11-20] MEDS: MEROPENEM INJ 1,000 MG in SODIUM CHLORIDE 0.9% INJ 100 ML IV SCH ×2 (02:23→14:58)
[2017-11-20 03:48] LABS: AUTOMATED NEUTROPHIL # 10.8 TH/MM3 (1.8-7.7); BASOPHIL % 0.4 % (0.0-2.0); EOSINOPHIL # 0.1 TH/MM3 (0-0.4); EOSINOPHIL % 0.6 % (0.0-4.0); HEMATOCRIT 41.7 % (35.0-46.0); HEMOGLOBIN 14.1 GM/DL (11.6-15.3); LYMPH % 10.7 % (9.0-44.0); LYMPHOCYTE # 1.4 TH/MM3 (1.0-4.8); MEAN CELL VOLUME 97.2 FL (80.0-100.0); MEAN CORPUSCULAR HEMOGLOBIN 32.9 PG (27.0-34.0); MEAN CORPUSCULAR HGB CONC 33.9 % (32.0-36.0); MEAN PLATELET VOLUME 8.9 FL (7.0-11.0); MONO % 3.6 % (0.0-8.0); MONOCYTE # 0.5 TH/MM3 (0-0.9); NEUT % 84.7 % (16.0-70.0); PLATELET COUNT 227 TH/MM3 (150-450); RED BLOOD COUNT 4.29 MIL/MM3 (4.00-5.30); RED CELL DISTRIBUTION WIDTH 17.7 % (11.6-17.2); WHITE BLOOD COUNT 12.8 TH/MM3 (4.0-11.0)
[2017-11-20] MEDS: RESP: ALBUTEROL 2.5 MG/IPRATROPIUM 0.5 MG NEB (SCH) INH ×4 (04:30→20:50)
[2017-11-20 04:45] LABS: ALBUMIN 1.7 GM/DL (3.4-5.0); ALKALINE PHOSPHATASE 93 U/L (45-117); ALT (GPT) 19 U/L (10-53); AST (GOT) 36 U/L (15-37); BICARBONATE 21.6 MEQ/L (21.0-32.0); BLOOD UREA NITROGEN 27 MG/DL (7-18); CALCIUM 9.1 MG/DL (8.5-10.1); CHLORIDE 106 MEQ/L (98-107); CREATININE 1.21 MG/DL (0.50-1.00); GLOMERULAR FILTRATION RATE 42 ML/MIN (>89); GLUCOSE,RANDOM 99 MG/DL (74-106); SODIUM (NA) 137 MEQ/L (136-145); TOTAL BILIRUBIN ADULT 3.8 MG/DL (0.2-1.0); TOTAL PROTEIN 5.7 GM/DL (6.4-8.2)
[2017-11-20] MEDS: LEVOTHYROXINE SODIUM 75 MCG TAB PO SCH (04:57)
[2017-11-20] MEDS: FAMOTIDINE 20 MG TAB PO SCH ×2 (07:47→20:19)
[2017-11-20] MEDS: CLOPIDOGREL 75 MG TAB PO SCH (07:48)
[2017-11-20] MEDS: NYSTATIN/TRIAMCINOLONE CREAM 15 GM TOPICAL SCH ×2 (07:48→20:19)
[2017-11-20] MEDS: SODIUM CHLORIDE 0.9% FLUSH 10 ML FLUSH IV FLUSH SCH ×2 (07:48→20:19)
[2017-11-20] MEDS: DOCUSATE SODIUM 50 MG/SENNA 8.6 MG TAB PO SCH ×2 (07:48→20:20)
--- NOTE | 2017-11-20 09:19 | MB ---
cc: Sonny Li DO DATE: 11/19/2017 REASON FOR CONSULTATION: Elevated troponin. HISTORY OF PRESENT ILLNESS: Danae Portillo is a pleasant 82-year-old female who sees my partner, Dr. Massey in the office, who presented to [facility] on 11/18/2017 due to fevers, chills and shortness of breath. Apparently, she is living in ____. The last 3 nights she has experienced chills and rigors. She has also had somewhat of a sore throat as well as a nonproductive cough. She feels like she has had the nonproductive cough because she does not drink enough fluid and if she drank more fluid she would be able to bring up more sputum which is tannish green in color. She has also been significantly short of breath during these episodes. She denies any chest pain. She also has had pain noted in her right hip buttock area. Labs were done and she was found to have an elevated troponin. I was asked to see her for such. She was also noted to be in atrial fibrillation with rapid ventricular response for a short period of time. PAST MEDICAL HISTORY: 1. Lung cancer. 2. Psoriatic arthritis. 3. Hypothyroidism. 4. History of NSTEMI. 5. Atrial fibrillation on anticoagulation with Eliquis. 6. TIA. 7. Anxiety. 8. Right eye blindness. PAST SURGICAL HISTORY: 1. Left lower lobe lobectomy. 2. Bilateral oophorectomy. 3. Hysterectomy. 4. Thyroidectomy. 5. Right femur maria fernanda. 6. Left cataract surgery (10/22/2017). 7. Skin cancer removal. ALLERGIES: 1. SULFA. 2. BACITRACIN 3. GADOBENIC ACID. 4. GADODIAMIDE. 5. GADOTERIDOL. 6. IODIXANOL. 7. IOHEXOL. 8. NEOMYCIN. 9. PENICILLIN. 10. POLYMYXIN B. 11. NSAIDS. FAMILY HISTORY: ____ some slight heart problems and at the age of 73. SOCIAL HISTORY: The patient is a former smoker but quit 12 years ago. She states that she used socially drink but has not drank in many years. She denies any drug abuse. She resides at ____. REVIEW OF SYSTEMS: Fourteen systems were reviewed including osteopathic. Pertinent positives and negatives above, otherwise negative. PHYSICAL EXAMINATION: VITAL SIGNS: Temperature 98.6, heart rate 88, blood pressure 99/55, respirations 25, pulse oximetry 99% on 2 liters. GENERAL: The patient appears overall ill but in no acute distress. Alert, awake and oriented x 3. HEENT: Extraocular muscles intact. Mucous membranes moist. NECK: Supple. No JVD at 45 degrees. No carotid bruits heard bilaterally. Carotid upstroke is brisk in nature. HEART: Irregularly irregular. Positive first and second heart sounds with a 1/6 holosystolic murmur noted at the apex. LUNGS: Have scattered rhonchi bilaterally. No rales noted bilaterally. ABDOMEN: Soft, nontender, nondistended. No organomegaly noted. EXTREMITIES: Show 2+ pitting edema bilaterally with right greater than left. NEUROLOGIC: No focal deficits. SKIN: Warm to the touch with erythema and warmth over the right tibia-fibula area and along the right hip and buttock. OSTEOPATHIC: Mild lordosis. No kyphoscoliosis or paraspinal tender points. LABORATORY DATA: Hemoglobin 15.5, hematocrit 46.3, platelets 218. Potassium 4.0, BUN 29, creatinine 1.89. Lactic acid 5.7, troponin 3.1. BNP 3568. Electrocardiogram (11/18/2017 at 1933) atrial fibrillation with rapid ventricular response, LVH with secondary ST-T wave changes. No significant change other than rate from previous EKG from 10/28/2017. IMPRESSIONS: 1. Pneumonia. 2. Cellulitis. 3. Severe sepsis. 4. Septic shock requiring vasopressin therapy. 5. Atrial fibrillation with rapid ventricular response, on amiodarone drip. 6. Non-ST elevation myocardial infarction, possibly type 2 due to atrial fibrillation as well as sepsis. 7. Chronic diastolic heart failure. 8. History of lung cancer, status post left lower lobe lobectomy. RECOMMENDATIONS: 1. Ms. Portillo appears to have come in with pneumonia and cellulitis as well as sepsis leading to her lactic acidosis. 2. She does have an elevated troponin and this may be type 2 due to her overall sickness. 3. She is currently on a phenylephrine drip and this has been increasing trying to help her blood pressure. 4. We will check a 2-D echo to look at her overall left ventricular function, cardiac structure and possible valvulopathies. 5. She has been started on the amiodarone drip, as she was hypotensive with atrial fibrillation with rapid ventricular response. Since being placed on the amiodarone drip, her heart rates have been better controlled. 6. She has a questionable history of aspirin and this will have to be discussed with her further, but for now will place her on Plavix 75 mg daily. 7. Antibiotics per the primary team. 8. We will plan on holding her Cardizem due to her hypotension as well as her Eliquis. 9. After she gets through her acute illness will discuss further with her consideration of ischemic evaluation, although I suspect that her elevated troponin is more likely due to her overall illness with pneumonia, sepsis, atrial fibrillation with rapid ventricular response and lactic acidosis. 11. Further recommendations will be made based on the hospital course. Thank you for allowing me to see Danae Portillo. If there are any questions, please do not hesitate to call. Sonny Li DO VGP/rt , 10:35 PM , 11:14 PM
[2017-11-20] MEDS: AMIODARONE INJ 450 MG in SODIUM CHLOR 0.9% (EXCEL) INJ 241 ML IV PRN (10:41)
[2017-11-20] MEDS ORDERED: ICU - D/C ICU ELECTROLYTE ORDERS PRN (13:15)
[2017-11-20] MEDS ORDERED: ICU - MAGNESIUM SULFATE 4 GM/NS 100 ML IV PRN ×2 (13:15)
[2017-11-20] MEDS ORDERED: ICU - POTASSIUM PHOSPHATE 30 MMOL/NS 250 ML IV PRN ×2 (13:15)
[2017-11-20] MEDS ORDERED: ICU - SODIUM PHOSPHATE 30 MMOL/NS 250 ML IV PRN ×2 (13:15)
[2017-11-20] MEDS ORDERED: POTASSIUM CHLORIDE 25 MEQ EFFERVESCENT TAB PO PRN (13:15)
[2017-11-20] MEDS ORDERED: ICU - MAGNESIUM OXIDE 400 MG TAB PO PRN (13:15)
[2017-11-20] MEDS ORDERED: ICU - CALL ORDERING PHYSICIAN PRN (13:15)
[2017-11-20] MEDS ORDERED: ICU - POTASSIUM PHOSPHATE MONOBASIC 500 MG TAB PO PRN (13:15)
[2017-11-20] MEDS ORDERED: ICU - POTASSIUM CHLORIDE/AQUEOUS SOLN 20 MEQ/100 ML IVPB IV PRN (13:15)
[2017-11-20] MEDS ORDERED: ICU - MAGNESIUM SULFATE 2 GM/NS 100 ML IV PRN ×2 (13:15)
[2017-11-20] MEDS: AZITHROMYCIN INJ 500 MG in SODIUM CHLOR 0.9% 250 ML INJ 250 ML IV SCH (13:22)
[2017-11-20] MEDS: HEPARIN-D5W 25,000 U/250 ML 250 ML IV PRN (13:44)
--- NOTE | 2017-11-20 16:06 | HHI.PR ---
Addendum to Inpatient Note Addendum Reason: Additional Documentation Additional Information Pt seen and examined full note to follow - overall better Karine Santa MD Nov 20, 2017 16:06
[2017-11-20] MEDS: VANCOMYCIN INJ 1,500 MG in SODIUM CHLORID 0.9% 500 ML INJ 500 ML IV SCH (17:14)
--- NOTE | 2017-11-20 21:20 | HHI.CCPN ---
Subjective Remarks/Hospital Course Hospital Course: 82-year-old female with past medical history of lung cancer, atrial fibrillation on chronic anticoagulation with Eliquis, chronic diastolic heart failure, hypothyroidism, rheumatoid arthritis on methotrexate, who presents from [facility]. She states that for the last 3 nights she has experienced chills and rigors. She has had some sore throat, dry nonproductive cough, and shortness of breath x3 days. Denies chest pain, dysuria or flank pain. She has cellulitis of right hip/buttocks area on exam. She had anorexia for a couple of days but no vomiting, abdominal discomfort or diarrhea. Subjective: 11/20: continues on vasopressors. remains in low-grade septic shock. wbc downtrending. trops downtrending. patient without complaints. ROS negative. Objective Vital Signs Date Time Temp Pulse Resp B/P (MAP) Pulse Ox O2 Delivery O2 Flow Rate FiO2 11/20/17 20:50 98 Nasal Cannula 2.00 11/20/17 19:00 86 88/58 11/20/17 16:00 97.9 11/19/17 21:00 21 Intake and Output 11/20/17 11/20/17 11/21/17 08:00 16:00 00:00 Intake Total 1097 ml 591 ml 400 ml Output Total 450 ml 500 ml Balance 647 ml 591 ml -100 ml Result Diagram: 11/20/17 0330 11/20/17 0330 Other Results Microbiology Date/Time Source Procedure Growth Status 11/18/17 23:29 Nasal Aspirate Influenza Types A,B Antigen (BRAULIO) - Final NEGATIVE FOR FLU A AND B ANTIGEN.... Complete 11/18/17 22:33 Urine Catheterized Urine Legionella Antigen - Final PRESUMPTIVE NEGATIVE FOR LEGIONELLA P... Complete 11/18/17 22:33 Urine Catheterized Urine Streptococcus pneumoniae Antigen (M - Final PRESUMPTIVE NEGATIVE FOR STREPTOCOCCU... Complete Objective Remarks GENERAL: Overweight female who is lying in bed, ill appearing. SKIN: Warm to touch. There is swelling of BLE with 2+ edema. There is erythema and warmth overlying the right tib/fib area. There is erythema and induration primarily overlying lateral right hip and buttocks. Extends down lateral Right thigh. Compartments soft. No crepitus. Dottie intertrigo present bilateral inguinal creases and under breasts bilaterally. There is some linear skin breakdown left inguinal crease. HEAD: Atraumatic. Normocephalic. EYES: Pupils equal and round, reactive bilat. No scleral icterus. No injection or drainage. ENT: No nasal bleeding or discharge. Mucous membranes pink and moist. NECK: Trachea midline. No JVD. CARDIOVASCULAR: irregularly irregular. afib by tele. RESPIRATORY: equal chest rise. nc o2. GASTROINTESTINAL: Abdomen soft, non-tender, nondistended. no guarding. : Madison in place with jaleel urine. MUSCULOSKELETAL: Extremities without clubbing, cyanosis. 2+-3 bilateral lower extremity edema, R>L. NEUROLOGICAL: Awake and alert. Oriented to self, hospital, year. No obvious cranial nerve deficits. Motor grossly within normal limits. Normal speech. A/P Assessment and Plan Assessment: 82yF with cellulitis, persistent septic shock, type II NSTEMI secondary to demand ischemia. shock state remains. continue vasopressors and supportive care. send cortisol level as patient may have adrenal insufficiency from her multiple chronic illnesses. remains critically ill, highly complex. NEURO: Acute metabolic encephalopathy - improving. History of TIA Anxiety Hold sedatives medication OPHTHO: Cataract s/p phacoemulsification and intraocular lens implant left eye 10/22/17 Dr. Skip Laureano eye blindness Continue Pred Forte/Vigamox/ Ketorolac ophthalmic RESP: History of lung cancer status post left lower lobectomy COPD CXR with vasc congestion, suspect related to diastolic dysfunction and Afib RVR as EF was preserved on prior Echo. NC wean as tolerated. DuoNeb every 6 hours Albuterol every 2 hours as needed CV: Chronic Atrial fibrillation with RVR on chronic anticoagulation with Eliquis NSTEMI, suspect type II due to Afib RVR/sepsis Chronic diastolic heart failure Septic Shock continue amiodarone. Neosynephrine if needed for MAP >65. Troponin elevation likely type II NSTEMI due to sepsis and diastolic heart failure. Trend troponin. Eliquis held. Heparin drip for A fib/NSTEMI. Cardiology consulted. Patient is known to Dr. Massey GI: Heart healthy diet FEN/RENAL: CELESTINO overlying Chronic kidney disease stage III continue madison. Monitor intake and output as marker of perfusion. ID: Septic Shock Cellulitis R leg Leukocytosis, bandemia PCN allergy - hives and swelling Immunocompromised state Aztreonam/Vancomycin for R leg cellulitis which is source of sepsis. Follow-up blood cultures. Obtain influenza screen which was negative. Obtain urine Legionella and pneumococcal antigen. ID consulted RHEUM: Psoriatic arthritis Hold methotrexate 2.5 mg po weekly due to sepsis. HEME: U/s to evaluate for DVT in right leg though less likely given she has been on eliquis at [facility]. ENDO: Hypothyroidism TSH elevated. Resume synthroid 75 mcg for now, may push dose upward but would hold off on titration now in view of A fib RVR and active sepsis. PROPH: Heparin drip provides DVT prophylaxis. Famotidine for stress ulcer prophylaxis ACCESS: . R radial art line placed 11/19. R IJ CVL placed 11/19 (anticoagulated so IJ site chosen) #2 Clinton Early MD Nov 20, 2017 21:20
[2017-11-20] MEDS: PHENYLEPHRINE HCL 160 MG/D5W 484 ML ADMIX IV PRN ×2 (22:01)
--- NOTE | 2017-11-20 23:37 | PD.CARD.PN ---
Subjective Subjective Remarks No events overnight Continues on Tahir drip No chest pain/SOB Objective Medications Current Medications Medications (Trade) Dose Ordered Sig/Juwan Route Start Time Stop Time Status Last Admin Pharmacy Profile Note 0 ml @ 0 mls/hr UNSCH OTHER 11/19/17 00:45 (NS Flush) 2 ml UNSCH PRN IV FLUSH 11/19/17 01:00 (NS Flush) 2 ml BID IV FLUSH 11/19/17 09:00 11/20/17 20:19 (Zofran Inj) 4 mg Q6H PRN IV PUSH 11/19/17 01:00 (Duoneb Neb) 1 ampule Q6HR NEB INH 11/19/17 04:00 11/20/17 20:50 (Albuterol Neb) 2.5 mg Q2HR NEB PRN INH 11/19/17 01:00 Miscellaneous Information 1 Q361D XX 11/19/17 01:00 11/19/17 01:00 (Jennifer-Colace) 1 tab BID PO 11/19/17 09:00 11/19/17 09:46 (Milk Of Magnesia Liq) 30 ml Q12H PRN PO 11/19/17 01:00 (Senokot) 17.2 mg Q12H PRN PO 11/19/17 01:00 (Dulcolax Supp) 10 mg DAILY PRN RECTAL 11/19/17 01:00 (Lactulose Liq) 30 ml DAILY PRN PO 11/19/17 01:00 (Pepcid) 10 mg Q12HR PO 11/19/17 09:00 11/20/17 20:19 Heparin Sodium/ Dextrose 250 ml @ 10 mls/hr TITRATE PRN IV 11/19/17 05:00 11/20/17 13:44 Diltiazem HCl 125 mg/Sodium Chloride 125 ml @ 5 mls/hr TITRATE PRN IV 11/19/17 01:30 Future Hold 11/19/17 04:16 (Mycolog Ii Cream) 1 applic Q12H TOPICAL 11/19/17 09:00 11/20/17 20:19 (Brethine Inj) 1 mg UNSCH PRN SQ 11/19/17 07:30 Amiodarone HCl 450 mg/Sodium Chloride 250 ml @ 33.33 mls/ hr Q7H31M PRN IV 11/19/17 08:09 11/20/17 10:41 Meropenem 1000 mg/ Sodium Chloride 100 ml @ 200 mls/hr Q12H IV 11/19/17 15:00 11/20/17 14:58 Azithromycin 500 mg/Sodium Chloride 250 ml @ 250 mls/hr Q24H IV 11/19/17 14:00 11/20/17 13:22 (Synthroid) 75 mcg DAILY@0600 PO 11/19/17 13:30 11/20/17 04:57 (Plavix) 75 mg DAILY PO 11/19/17 17:00 11/20/17 07:48 Phenylephrine HCl 160 mg/Dextrose 500 ml @ 7.5 mls/hr TITRATE PRN IV 11/19/17 20:00 11/20/17 22:01 (Vistaril) 25 mg Q6HR PO 11/20/17 00:00 11/20/17 17:13 Vancomycin HCl 1500 mg/Sodium Chloride 515 ml @ 250 mls/hr Q24H IV 11/20/17 17:00 11/20/17 17:14 Miscellaneous Information SPECIFIC LAB TO BE DRAWN:VANCOMYCIN TROUGH DATE TO... ONCE ONCE .XX 11/21/17 16:45 11/21/17 16:46 (Roxicodone) 5 mg Q4H PRN PO 11/20/17 13:00 11/20/17 20:42 Miscellaneous Information D/C ICU ELECTROLYTE ORDERS... UNSCH PRN .XX 11/20/17 13:15 Miscellaneous Information ICU - CALL ORDERING PHYSIC... UNSCH PRN .XX 11/20/17 13:15 Potassium Chloride 100 ml @ 25 mls/hr UNSCH PRN IV 11/20/17 13:15 (K-Lyte Cl Eff) 50 meq UNSCH PRN PO 11/20/17 13:15 11/20/17 13:23 Potassium Chloride 100 ml @ 50 mls/hr UNSCH PRN IV 11/20/17 13:15 Magnesium Sulfate 4 gm/Sodium Chloride 108 ml @ 54 mls/hr UNSCH PRN IV 11/20/17 13:15 Magnesium Sulfate 2 gm/Sodium Chloride 104 ml @ 52 mls/hr UNSCH PRN IV 11/20/17 13:15 (Mag-Ox) 800 mg UNSCH PRN PO 11/20/17 13:15 Sodium Phosphate 30 mmol/Sodium Chloride 260 ml @ 43.333 mls/ hr UNSCH PRN IV 11/20/17 13:15 (K-Phos) 2,000 mg UNSCH PRN PO 11/20/17 13:15 Potassium Phosphate 30 mmol/ Sodium Chloride 260 ml @ 43.333 mls/ hr UNSCH PRN IV 11/20/17 13:15 Vital Signs / I&O Vital Signs Date Time Temp Pulse Resp B/P (MAP) Pulse Ox O2 Delivery O2 Flow Rate FiO2 11/20/17 22:01 76 103/63 11/20/17 22:00 76 11/20/17 22:00 76 103/63 11/20/17 21:42 19 11/20/17 20:50 98 Nasal Cannula 2.00 11/20/17 20:00 90 11/20/17 20:00 98.7 90 105/67 (80) 97 11/20/17 20:00 97 Nasal Cannula 3.00 11/20/17 19:00 86 88/58 11/20/17 19:00 86 88/58 11/20/17 18:00 107 11/20/17 16:00 111 11/20/17 16:00 97.9 111 86/61 (69) 94 11/20/17 16:00 94 Nasal Cannula 3.00 11/20/17 14:00 102 11/20/17 12:00 97 Nasal Cannula 3.00 11/20/17 12:00 119 11/20/17 12:00 97.7 119 113/54 (73) 97 103/70 (81) 11/20/17 10:41 104 98/70 11/20/17 10:00 93 11/20/17 09:32 99 Nasal Cannula 2.00 11/20/17 08:00 97.8 77 107/75 (86) 98 105/68 (80) 11/20/17 08:00 77 11/20/17 08:00 98 Nasal Cannula 3.00 11/20/17 06:00 81 11/20/17 04:00 97.9 78 102/51 (68) 97 98/66 (77) 11/20/17 04:00 76 11/20/17 03:55 76 92/63 11/20/17 03:55 76 92/63 11/20/17 03:30 74 94/61 11/20/17 03:00 75 92/53 (66) 98 87/60 (69) 11/20/17 02:25 81 89/62 11/20/17 02:25 81 89/62 11/20/17 02:00 79 95/55 (68) 97 88/62 (71) 11/20/17 02:00 74 11/20/17 01:00 86 107/58 (74) 99 101/67 (78) 11/20/17 00:50 84 103/67 11/20/17 00:00 98.1 93 106/52 (70) 96 107/71 (83) 11/20/17 00:00 92 11/20/17 00:00 97 Nasal Cannula 3.00 I/O 11/20/17 11/20/17 11/20/17 11/21/17 11/21/17 11/21/17 07:00 15:00 23:00 07:00 15:00 23:00 Intake Total 1097 ml 491 ml 1000 ml Output Total 450 ml 500 ml Balance 647 ml 491 ml 500 ml Intake Oral 240 ml 400 ml IV Total 857 ml 491 ml 600 ml Output Urine Total 450 ml 500 ml # Bowel Movements 1 0 Physical Exam GENERAL: NAD, AAOx3 SKIN: Warm and dry. HEAD: Atraumatic. Normocephalic. EYES: Pupils equal and round. No scleral icterus. No injection or drainage. ENT: No nasal bleeding or discharge. Mucous membranes pink and moist. NECK: Trachea midline. No JVD. CARDIOVASCULAR: Irregularly irregular RESPIRATORY: No accessory muscle use. Scattered rhonchi GASTROINTESTINAL: Abdomen soft, non-tender, nondistended. Hepatic and splenic margins not palpable. MUSCULOSKELETAL: Extremities without clubbing, cyanosis, or edema. No obvious deformities. NEUROLOGICAL: Awake and alert. No obvious cranial nerve deficits. Motor grossly within normal limits. Five out of 5 muscle strength in the arms and legs. Normal speech. PSYCHIATRIC: Appropriate mood and affect; insight and judgment normal. Laboratory Laboratory Tests Test 11/20/17 03:30 11/20/17 21:45 White Blood Count 12.8 TH/MM3 Red Blood Count 4.29 MIL/MM3 Hemoglobin 14.1 GM/DL Hematocrit 41.7 % Mean Corpuscular Volume 97.2 FL Mean Corpuscular Hemoglobin 32.9 PG Mean Corpuscular Hemoglobin Concent 33.9 % Red Cell Distribution Width 17.7 % Platelet Count 227 TH/MM3 Mean Platelet Volume 8.9 FL Neutrophils (%) (Auto) 84.7 % Lymphocytes (%) (Auto) 10.7 % Monocytes (%) (Auto) 3.6 % Eosinophils (%) (Auto) 0.6 % Basophils (%) (Auto) 0.4 % Neutrophils # (Auto) 10.8 TH/MM3 Lymphocytes # (Auto) 1.4 TH/MM3 Monocytes # (Auto) 0.5 TH/MM3 Eosinophils # (Auto) 0.1 TH/MM3 Basophils # (Auto) 0.0 TH/MM3 CBC Comment DIFF FINAL Differential Comment Activated Partial Thromboplast Time 44.6 SEC Blood Urea Nitrogen 27 MG/DL Creatinine 1.21 MG/DL Random Glucose 99 MG/DL Total Protein 5.7 GM/DL Albumin 1.7 GM/DL Calcium Level 9.1 MG/DL Alkaline Phosphatase 93 U/L Aspartate Amino Transf (AST/SGOT) 36 U/L Alanine Aminotransferase (ALT/SGPT) 19 U/L Total Bilirubin 3.8 MG/DL Sodium Level 137 MEQ/L Potassium Level 3.3 MEQ/L Chloride Level 106 MEQ/L Carbon Dioxide Level 21.6 MEQ/L Anion Gap 9 MEQ/L Estimat Glomerular Filtration Rate 42 ML/MIN Random Cortisol 15.9 MCG/DL Assessment and Plan Problem List: (1) Sepsis ICD Codes: A41.9 - Sepsis, unspecified organism Status: Acute (2) Pneumonia ICD Codes: J18.9 - Pneumonia, unspecified organism Status: Acute (3) Non-ST elevation [place] (NSTEMI) ICD Codes: I21.4 - Non-ST elevation (NSTEMI) myocardial infarction Status: Acute (4) Acute diastolic (congestive) heart failure ICD Codes: I50.31 - Acute diastolic (congestive) heart failure (5) CKD (chronic kidney disease) stage 3, GFR 30-59 ml/min ICD Codes: N18.3 - Chronic kidney disease, stage 3 (moderate) Assessment and Plan 1) Sepsis/PNA/cellulitis Con't on Tahir drip Anti-biotics per ID Lactate decreasing 2) NSTEMI Most likely type 2 Discussed consideration of ischemic evaluation with cardiac catheterization or stress testing, but patient does not want further evaluation Con't medical management 3) Afib Con't on Heparin drip Eventually restart Eliquis before discharge Amiodarone drip Afib with RVR most likely secondary to overall illness 4) EF 65-70% Problem Qualifiers (1) Sepsis: Qualified Codes: A41.9 - Sepsis, unspecified organism (2) Pneumonia: Sonny Li DO Nov 20, 2017 23:37
--- NOTE | 2017-11-20 23:39 | HHI.IDPN ---
Subjective Subjective Remarks delayed entry pt was seen earlier today Pt is doing much better afenbrile improving breathing improving WBC Antibiotics vancomycin azithro meropenem Allergies: Coded Allergies: Sulfa (Sulfonamide Antibiotics) (Verified Allergy, Severe, Hives, 11/18/17) bacitracin (Verified Allergy, Severe, RASH-PT DOESN'T REMEMBER, 11/18/17) diatrizoate meglumine (Verified Allergy, Severe, HIVES, 11/18/17) gadobenic acid (Verified Allergy, Severe, HIVES, 11/18/17) gadodiamide (Verified Allergy, Severe, HIVES, 11/18/17) gadoteridol (Verified Allergy, Severe, HIVES, 11/18/17) gramicidin D (Verified Allergy, Severe, RASH, 11/18/17) iodixanol (Verified Allergy, Severe, HIVES, 11/18/17) iohexol (Verified Allergy, Severe, HIVES, 11/18/17) neomycin (Verified Allergy, Severe, RASH, 11/18/17) penicillin G (Verified Allergy, Severe, RASH HIVES, 11/18/17) polymyxin B (Verified Allergy, Severe, RASH, 11/18/17) NSAIDS (Non-Steroidal Anti-Inflamma (Verified Adverse Reaction, Severe, R/ T HIATAL HERNIA, 11/18/17) Objective . Vital Signs Date Time Temp Pulse Resp B/P (MAP) Pulse Ox O2 Delivery O2 Flow Rate FiO2 11/20/17 22:01 76 103/63 11/20/17 22:00 76 11/20/17 22:00 76 103/63 11/20/17 21:42 19 11/20/17 20:50 98 Nasal Cannula 2.00 11/20/17 20:00 90 11/20/17 20:00 98.7 90 105/67 (80) 97 11/20/17 20:00 97 Nasal Cannula 3.00 11/20/17 19:00 86 88/58 11/20/17 19:00 86 88/58 11/20/17 18:00 107 11/20/17 16:00 111 11/20/17 16:00 97.9 111 86/61 (69) 94 11/20/17 16:00 94 Nasal Cannula 3.00 11/20/17 14:00 102 11/20/17 12:00 97 Nasal Cannula 3.00 11/20/17 12:00 119 11/20/17 12:00 97.7 119 113/54 (73) 97 103/70 (81) 11/20/17 10:41 104 98/70 11/20/17 10:00 93 11/20/17 09:32 99 Nasal Cannula 2.00 11/20/17 08:00 97.8 77 107/75 (86) 98 105/68 (80) 11/20/17 08:00 77 11/20/17 08:00 98 Nasal Cannula 3.00 11/20/17 06:00 81 11/20/17 04:00 97.9 78 102/51 (68) 97 98/66 (77) 11/20/17 04:00 76 11/20/17 03:55 76 92/63 11/20/17 03:55 76 92/63 11/20/17 03:30 74 94/61 11/20/17 03:00 75 92/53 (66) 98 87/60 (69) 11/20/17 02:25 81 89/62 11/20/17 02:25 81 89/62 11/20/17 02:00 79 95/55 (68) 97 88/62 (71) 11/20/17 02:00 74 11/20/17 01:00 86 107/58 (74) 99 101/67 (78) 11/20/17 00:50 84 103/67 11/20/17 00:00 98.1 93 106/52 (70) 96 107/71 (83) 11/20/17 00:00 92 11/20/17 00:00 97 Nasal Cannula 3.00 11/20/17 11/20/17 11/21/17 15:00 23:00 07:00 Intake Total 491 ml 1000 ml Output Total 500 ml Balance 491 ml 500 ml Intake Oral 400 ml IV Total 491 ml 600 ml Output Urine Total 500 ml # Bowel Movements 0 . Laboratory Tests Test 11/20/17 03:30 White Blood Count 12.8 TH/MM3 Red Blood Count 4.29 MIL/MM3 Hemoglobin 14.1 GM/DL Hematocrit 41.7 % Mean Corpuscular Volume 97.2 FL Mean Corpuscular Hemoglobin 32.9 PG Mean Corpuscular Hemoglobin Concent 33.9 % Red Cell Distribution Width 17.7 % Platelet Count 227 TH/MM3 Mean Platelet Volume 8.9 FL Neutrophils (%) (Auto) 84.7 % Lymphocytes (%) (Auto) 10.7 % Monocytes (%) (Auto) 3.6 % Eosinophils (%) (Auto) 0.6 % Basophils (%) (Auto) 0.4 % Neutrophils # (Auto) 10.8 TH/MM3 Lymphocytes # (Auto) 1.4 TH/MM3 Monocytes # (Auto) 0.5 TH/MM3 Eosinophils # (Auto) 0.1 TH/MM3 Basophils # (Auto) 0.0 TH/MM3 CBC Comment DIFF FINAL Differential Comment Laboratory Tests Test 11/19/17 02:17 11/19/17 05:50 11/19/17 10:15 11/19/17 13:00 Lactic Acid Level 5.7 mmol/L 4.6 mmol/L 3.6 mmol/L Troponin I 2.33 NG/ML 3.10 NG/ML Thyroid Stimulating Hormone 3rd Gen 9.820 uIU/ML Test 11/20/17 03:30 11/20/17 21:45 Blood Urea Nitrogen 27 MG/DL Creatinine 1.21 MG/DL Random Glucose 99 MG/DL Total Protein 5.7 GM/DL Albumin 1.7 GM/DL Calcium Level 9.1 MG/DL Alkaline Phosphatase 93 U/L Aspartate Amino Transf (AST/SGOT) 36 U/L Alanine Aminotransferase (ALT/SGPT) 19 U/L Total Bilirubin 3.8 MG/DL Sodium Level 137 MEQ/L Potassium Level 3.3 MEQ/L Chloride Level 106 MEQ/L Carbon Dioxide Level 21.6 MEQ/L Anion Gap 9 MEQ/L Estimat Glomerular Filtration Rate 42 ML/MIN Random Cortisol 15.9 MCG/DL Microbiology Date/Time Source Procedure Growth Status 11/18/17 21:40 Blood Peripheral Aerobic Blood Culture - Preliminary NO GROWTH IN 2 DAYS Resulted 11/18/17 21:40 Blood Peripheral Anaerobic Blood Culture - Preliminary NO GROWTH IN 2 DAYS Resulted 11/18/17 21:39 Blood Peripheral Aerobic Blood Culture - Preliminary NO GROWTH IN 2 DAYS Resulted 11/18/17 21:39 Blood Peripheral Anaerobic Blood Culture - Preliminary NO GROWTH IN 2 DAYS Resulted 11/18/17 23:29 Nasal Aspirate Influenza Types A,B Antigen (BRAULIO) - Final NEGATIVE FOR FLU A AND B ANTIGEN.... Complete 11/19/17 13:00 Urine Catheterized Urine Urine Culture - Preliminary NO GROWTH IN 24 HOURS. Resulted 11/18/17 22:33 Urine Catheterized Urine Legionella Antigen - Final PRESUMPTIVE NEGATIVE FOR LEGIONELLA P... Complete 11/18/17 22:33 Urine Catheterized Urine Streptococcus pneumoniae Antigen (M - Final PRESUMPTIVE NEGATIVE FOR STREPTOCOCCU... Complete Imaging Last Impressions Lower Extremity Ultrasound 11/19/17 0000 Signed Impressions: Service Date/Time: Sunday, November 19, 2017 09:37 - CONCLUSION: Normal examination. Jaycob Adorno MD Lower Extremity CT 11/19/17 0000 Signed Impressions: Service Date/Time: Sunday, November 19, 2017 01:54 - CONCLUSION: Mild degenerative changes right hip without fracture. Odell Pritchett MD Chest X-Ray 11/19/17 0000 Signed Impressions: Service Date/Time: Sunday, November 19, 2017 08:12 - CONCLUSION: Right-sided central line in place. No evidence of pneumothorax. Subhash Garcia MD Physical Exam CONSTITUTIONAL/GENERAL: This is an adequately nourished patient, in no apparent distress. TUBES/LINES/DRAINS: SKIN: No jaundice, rashes, or lesions. Ecchymoses on upper extremities. Skin temperature appropriate. Not diaphoretic. Anasarca CARDIOVASCULAR: Regular rate and rhythm without murmurs, gallops, or rubs. No JVD. Peripheral pulses symmetric. RESPIRATORY/CHEST: Symmetric, unlabored respirations. Clear to auscultation. Breath sounds equal bilaterally. No wheezes, rales, or rhonchi. GASTROINTESTINAL: Abdomen soft, non-tender, nondistended. No hepato-splenomegaly , or palpable masses. No guarding. Bowel sounds present. GENITOURINARY: Without palpable bladder distension. Saeed catheter in place with cloudy dark urine MUSCULOSKELETAL: Extremities without clubbing, cyanosis, + 3-4 + edema soft pitting, up to waist - persistent edema much improved erythema RLE , both lower lefg and thigh Thigh incision is well healed + mildly tender to palpation . No joint tenderness or effusion noted. No calf tenderness. No mottling or clubbing. NEUROLOGICAL: Lethargic, easily arousable . Motor and sensory grossly within normal limits. Follows commands. Clear speech. Moves all extremities. PSYCHIATRIC: No obvious anxiety/depression. no apparent hallucinations or other psychotic thought process. Assessment & Plan Remarks Sespsis - improved Hemodyna,mically unstable Pulmonary edema ? underlying PNA RLE cellulitis - improving Diarrhea Allergic PCN: per pt - hives, Keflex - unknown will dc meropenem if urine/blood clx remain negative cont vanco cont Karine Hedrick MD Nov 20, 2017 23:39
[2017-11-21] VITALS (14 sets, daily range): BP systolic 91–120; BP diastolic 50–72; PULSE 69–93; RESP 19–23; TEMP 97.2–97.9; O2SAT 92–100
[2017-11-21] MEDS: AMIODARONE INJ 450 MG in SODIUM CHLOR 0.9% (EXCEL) INJ 241 ML IV PRN (00:42)
[2017-11-21] MEDS: hydrOXYzine PAMOATE 25 MG CAP PO SCH ×5 (00:42→23:20)
[2017-11-21] MEDS: RESP: ALBUTEROL 2.5 MG/IPRATROPIUM 0.5 MG NEB (SCH) INH ×4 (03:25→21:08)
[2017-11-21] MEDS: MEROPENEM INJ 1,000 MG in SODIUM CHLORIDE 0.9% INJ 100 ML IV SCH ×2 (03:42→15:24)
[2017-11-21 04:37] LABS: HEMATOCRIT 42.8 % (35.0-46.0); HEMOGLOBIN 14.3 GM/DL (11.6-15.3); MEAN CELL VOLUME 97.5 FL (80.0-100.0); MEAN CORPUSCULAR HEMOGLOBIN 32.6 PG (27.0-34.0); MEAN CORPUSCULAR HGB CONC 33.4 % (32.0-36.0); MEAN PLATELET VOLUME 9.1 FL (7.0-11.0); PLATELET COUNT 224 TH/MM3 (150-450); RED BLOOD COUNT 4.39 MIL/MM3 (4.00-5.30); RED CELL DISTRIBUTION WIDTH 17.8 % (11.6-17.2); WHITE BLOOD COUNT 9.3 TH/MM3 (4.0-11.0)
[2017-11-21 05:10] LABS: BICARBONATE 23.6 MEQ/L (21.0-32.0); CALCIUM 9.5 MG/DL (8.5-10.1); CREATININE 1.02 MG/DL (0.50-1.00)
[2017-11-21] MEDS: LEVOTHYROXINE SODIUM 75 MCG TAB PO SCH (05:38)
[2017-11-21] MEDS: HEPARIN-D5W 25,000 U/250 ML 250 ML IV PRN ×2 (05:46→21:30)
[2017-11-21] MEDS: CLOPIDOGREL 75 MG TAB PO SCH (08:36)
[2017-11-21] MEDS: FAMOTIDINE 20 MG TAB PO SCH ×2 (08:36→19:40)
[2017-11-21] MEDS: DOCUSATE SODIUM 50 MG/SENNA 8.6 MG TAB PO SCH ×2 (08:36→19:40)
[2017-11-21] MEDS: SODIUM CHLORIDE 0.9% FLUSH 10 ML FLUSH IV FLUSH SCH ×2 (08:36→19:40)
[2017-11-21] MEDS: NYSTATIN/TRIAMCINOLONE CREAM 15 GM TOPICAL SCH ×2 (08:37→19:40)
--- NOTE | 2017-11-21 11:07 | PD.CARD.PN ---
Subjective Subjective Remarks No events overnight Continues on Tahir drip, amiodarone drip No chest pain/SOB Objective Medications Current Medications Medications (Trade) Dose Ordered Sig/Juwan Route Start Time Stop Time Status Last Admin Pharmacy Profile Note 0 ml @ 0 mls/hr UNSCH OTHER 11/19/17 00:45 (NS Flush) 2 ml UNSCH PRN IV FLUSH 11/19/17 01:00 (NS Flush) 2 ml BID IV FLUSH 11/19/17 09:00 11/21/17 08:36 (Zofran Inj) 4 mg Q6H PRN IV PUSH 11/19/17 01:00 (Duoneb Neb) 1 ampule Q6HR NEB INH 11/19/17 04:00 11/21/17 07:56 (Albuterol Neb) 2.5 mg Q2HR NEB PRN INH 11/19/17 01:00 Miscellaneous Information 1 Q361D XX 11/19/17 01:00 11/19/17 01:00 (Jennifer-Colace) 1 tab BID PO 11/19/17 09:00 11/21/17 08:36 (Milk Of Magnesia Liq) 30 ml Q12H PRN PO 11/19/17 01:00 (Senokot) 17.2 mg Q12H PRN PO 11/19/17 01:00 (Dulcolax Supp) 10 mg DAILY PRN RECTAL 11/19/17 01:00 (Lactulose Liq) 30 ml DAILY PRN PO 11/19/17 01:00 (Pepcid) 10 mg Q12HR PO 11/19/17 09:00 11/21/17 08:36 Heparin Sodium/ Dextrose 250 ml @ 10 mls/hr TITRATE PRN IV 11/19/17 05:00 11/21/17 05:46 Diltiazem HCl 125 mg/Sodium Chloride 125 ml @ 5 mls/hr TITRATE PRN IV 11/19/17 01:30 Future Hold 11/19/17 04:16 (Mycolog Ii Cream) 1 applic Q12H TOPICAL 11/19/17 09:00 11/21/17 08:37 (Brethine Inj) 1 mg UNSCH PRN SQ 11/19/17 07:30 Amiodarone HCl 450 mg/Sodium Chloride 250 ml @ 33.33 mls/ hr Q7H31M PRN IV 11/19/17 08:09 11/21/17 00:42 Meropenem 1000 mg/ Sodium Chloride 100 ml @ 200 mls/hr Q12H IV 11/19/17 15:00 11/21/17 03:42 Azithromycin 500 mg/Sodium Chloride 250 ml @ 250 mls/hr Q24H IV 11/19/17 14:00 11/20/17 13:22 (Synthroid) 75 mcg DAILY@0600 PO 11/19/17 13:30 11/21/17 05:38 (Plavix) 75 mg DAILY PO 11/19/17 17:00 11/21/17 08:36 Phenylephrine HCl 160 mg/Dextrose 500 ml @ 7.5 mls/hr TITRATE PRN IV 11/19/17 20:00 11/20/17 22:01 (Vistaril) 25 mg Q6HR PO 11/20/17 00:00 11/21/17 05:38 Vancomycin HCl 1500 mg/Sodium Chloride 515 ml @ 250 mls/hr Q24H IV 11/20/17 17:00 11/20/17 17:14 Miscellaneous Information SPECIFIC LAB TO BE DRAWN:VANCOMYCIN TROUGH DATE TO... ONCE ONCE .XX 11/21/17 16:45 11/21/17 16:46 (Roxicodone) 5 mg Q4H PRN PO 11/20/17 13:00 11/21/17 06:21 Miscellaneous Information D/C ICU ELECTROLYTE ORDERS... UNSCH PRN .XX 11/20/17 13:15 Miscellaneous Information ICU - CALL ORDERING PHYSIC... UNSCH PRN .XX 11/20/17 13:15 Potassium Chloride 100 ml @ 25 mls/hr UNSCH PRN IV 11/20/17 13:15 (K-Lyte Cl Eff) 50 meq UNSCH PRN PO 11/20/17 13:15 11/20/17 13:23 Potassium Chloride 100 ml @ 50 mls/hr UNSCH PRN IV 11/20/17 13:15 Magnesium Sulfate 4 gm/Sodium Chloride 108 ml @ 54 mls/hr UNSCH PRN IV 11/20/17 13:15 Magnesium Sulfate 2 gm/Sodium Chloride 104 ml @ 52 mls/hr UNSCH PRN IV 11/20/17 13:15 (Mag-Ox) 800 mg UNSCH PRN PO 11/20/17 13:15 Sodium Phosphate 30 mmol/Sodium Chloride 260 ml @ 43.333 mls/ hr UNSCH PRN IV 11/20/17 13:15 (K-Phos) 2,000 mg UNSCH PRN PO 11/20/17 13:15 Potassium Phosphate 30 mmol/ Sodium Chloride 260 ml @ 43.333 mls/ hr UNSCH PRN IV 11/20/17 13:15 Vital Signs / I&O Vital Signs Date Time Temp Pulse Resp B/P (MAP) Pulse Ox O2 Delivery O2 Flow Rate FiO2 11/21/17 10:00 88 11/21/17 08:00 100 Nasal Cannula 2.00 11/21/17 08:00 97.4 86 21 109/59 (76) 100 120/72 (88) 11/21/17 08:00 86 11/21/17 07:57 96 11/21/17 07:21 21 11/21/17 06:00 93 11/21/17 05:45 87 113/68 11/21/17 05:45 87 113/68 11/21/17 04:00 70 11/21/17 04:00 97 Nasal Cannula 2.00 11/21/17 04:00 97.6 70 100/50 (67) 100 109/65 (80) 11/21/17 02:00 69 11/21/17 00:42 74 106/63 11/21/17 00:41 74 106/63 11/21/17 00:00 82 11/21/17 00:00 97.9 82 91/52 (65) 98 100/61 (74) 11/21/17 00:00 98 Nasal Cannula 2.00 11/20/17 22:01 76 103/63 11/20/17 22:00 76 11/20/17 22:00 76 103/63 11/20/17 20:50 98 Nasal Cannula 2.00 11/20/17 20:00 90 11/20/17 20:00 98.7 90 105/67 (80) 97 11/20/17 20:00 97 Nasal Cannula 3.00 11/20/17 19:00 86 88/58 11/20/17 19:00 86 88/58 11/20/17 18:00 107 11/20/17 16:00 111 11/20/17 16:00 97.9 111 86/61 (69) 94 11/20/17 16:00 94 Nasal Cannula 3.00 11/20/17 14:00 102 11/20/17 12:00 97 Nasal Cannula 3.00 11/20/17 12:00 119 11/20/17 12:00 97.7 119 113/54 (73) 97 103/70 (81) I/O 11/20/17 11/20/17 11/20/17 11/21/17 11/21/17 11/21/17 07:00 15:00 23:00 07:00 15:00 23:00 Intake Total 1097 ml 491 ml 1515 ml 1936.9 ml Output Total 450 ml 500 ml 400 ml Balance 647 ml 491 ml 1015 ml 1536.9 ml Intake Oral 240 ml 400 ml 360 ml IV Total 857 ml 491 ml 1115 ml 1576.9 ml Output Urine Total 450 ml 500 ml 400 ml # Bowel Movements 1 0 0 Physical Exam GENERAL: NAD, AAOx3 SKIN: Warm and dry. HEAD: Atraumatic. Normocephalic. EYES: Pupils equal and round. No scleral icterus. No injection or drainage. ENT: No nasal bleeding or discharge. Mucous membranes pink and moist. NECK: Trachea midline. No JVD. CARDIOVASCULAR: Irregularly irregular RESPIRATORY: No accessory muscle use. Scattered rhonchi GASTROINTESTINAL: Abdomen soft, non-tender, nondistended. Hepatic and splenic margins not palpable. MUSCULOSKELETAL: Extremities without clubbing, cyanosis, or edema. No obvious deformities. NEUROLOGICAL: Awake and alert. No obvious cranial nerve deficits. Motor grossly within normal limits. Five out of 5 muscle strength in the arms and legs. Normal speech. PSYCHIATRIC: Appropriate mood and affect; insight and judgment normal. Laboratory Laboratory Tests Test 11/20/17 21:45 11/21/17 03:30 Phosphorus Level 2.5 MG/DL Random Cortisol 15.9 MCG/DL White Blood Count 9.3 TH/MM3 Red Blood Count 4.39 MIL/MM3 Hemoglobin 14.3 GM/DL Hematocrit 42.8 % Mean Corpuscular Volume 97.5 FL Mean Corpuscular Hemoglobin 32.6 PG Mean Corpuscular Hemoglobin Concent 33.4 % Red Cell Distribution Width 17.8 % Platelet Count 224 TH/MM3 Mean Platelet Volume 9.1 FL Activated Partial Thromboplast Time 46.2 SEC Blood Urea Nitrogen 26 MG/DL Creatinine 1.02 MG/DL Random Glucose 73 MG/DL Calcium Level 9.5 MG/DL Sodium Level 137 MEQ/L Potassium Level 3.8 MEQ/L Chloride Level 106 MEQ/L Carbon Dioxide Level 23.6 MEQ/L Anion Gap 7 MEQ/L Estimat Glomerular Filtration Rate 52 ML/MIN Assessment and Plan Problem List: (1) Sepsis ICD Codes: A41.9 - Sepsis, unspecified organism Status: Acute (2) Pneumonia ICD Codes: J18.9 - Pneumonia, unspecified organism Status: Acute (3) Non-ST elevation [place] (NSTEMI) ICD Codes: I21.4 - Non-ST elevation (NSTEMI) myocardial infarction Status: Acute (4) Acute diastolic (congestive) heart failure ICD Codes: I50.31 - Acute diastolic (congestive) heart failure (5) CKD (chronic kidney disease) stage 3, GFR 30-59 ml/min ICD Codes: N18.3 - Chronic kidney disease, stage 3 (moderate) Assessment and Plan 1) Sepsis/PNA/cellulitis Con't on Tahir drip Anti-biotics per ID Lactate decreasing 2) NSTEMI Most likely type 2 Discussed consideration of ischemic evaluation with cardiac catheterization or stress testing, but patient does not want further evaluation Con't medical management 3) Afib Con't on Heparin drip Eventually restart Eliquis before discharge Amiodarone drip, change to Cardizem once more stable and off Tahir drip Afib with RVR most likely secondary to overall illness 4) EF 65-70% 5) Dr. Cooper available over the weekend PRN Problem Qualifiers (1) Sepsis: Qualified Codes: A41.9 - Sepsis, unspecified organism (2) Pneumonia: Sonny Li DO Nov 21, 2017 11:07
[2017-11-21] MEDS: AZITHROMYCIN INJ 500 MG in SODIUM CHLOR 0.9% 250 ML INJ 250 ML IV SCH (13:56)
[2017-11-21] MEDS ORDERED: PHARMACY ORDERED LAB ONE (16:45)
--- NOTE | 2017-11-21 17:47 | HHI.CCPN ---
Subjective Remarks/Hospital Course Hospital Course: 82-year-old female with past medical history of lung cancer, atrial fibrillation on chronic anticoagulation with Eliquis, chronic diastolic heart failure, hypothyroidism, rheumatoid arthritis on methotrexate, who presents from [facility]. She states that for the last 3 nights she has experienced chills and rigors. She has had some sore throat, dry nonproductive cough, and shortness of breath x3 days. Denies chest pain, dysuria or flank pain. She has cellulitis of right hip/buttocks area on exam. She had anorexia for a couple of days but no vomiting, abdominal discomfort or diarrhea. Subjective: 11/20: continues on vasopressors. remains in low-grade septic shock. wbc downtrending. trops downtrending. patient without complaints. ROS negative. 11/21: remains on phenylephrine. random cortisol 15, equivocal. will start empiric stress dose steroids since patient has been on vasopressors x >48h. clinically improving and leg much less swolen and erythematous. denies complaints. tolerating diet. ROS negative. Objective Vital Signs Date Time Temp Pulse Resp B/P (MAP) Pulse Ox O2 Delivery O2 Flow Rate FiO2 11/21/17 16:00 97.2 85 21 105/64 (78) 94 118/69 (85) 11/21/17 16:00 Room Air 11/21/17 08:00 Intake and Output 11/21/17 11/21/17 11/22/17 08:00 16:00 00:00 Intake Total 1936.9 ml Output Total 400 ml Balance 1536.9 ml Result Diagram: 11/21/17 0330 11/21/17 0330 Other Results Microbiology Date/Time Source Procedure Growth Status 11/18/17 23:29 Nasal Aspirate Influenza Types A,B Antigen (BRAULIO) - Final NEGATIVE FOR FLU A AND B ANTIGEN.... Complete 11/19/17 13:00 Urine Catheterized Urine Urine Culture - Final NO GROWTH IN 48 HOURS. Complete 11/18/17 22:33 Urine Catheterized Urine Legionella Antigen - Final PRESUMPTIVE NEGATIVE FOR LEGIONELLA P... Complete 11/18/17 22:33 Urine Catheterized Urine Streptococcus pneumoniae Antigen (M - Final PRESUMPTIVE NEGATIVE FOR STREPTOCOCCU... Complete Objective Remarks GENERAL: Overweight female who is lying in bed, ill appearing. SKIN: erythema of RLE improving. HEAD: Atraumatic. Normocephalic. EYES: Pupils equal and round, reactive bilat. No scleral icterus. No injection or drainage. ENT: No nasal bleeding or discharge. Mucous membranes pink and moist. NECK: Trachea midline. No JVD. CARDIOVASCULAR: irregularly irregular. afib by tele. RESPIRATORY: equal chest rise. nc o2. GASTROINTESTINAL: Abdomen soft, non-tender, nondistended. no guarding. : Madison in place with jaleel urine. MUSCULOSKELETAL: Extremities without clubbing, cyanosis. 2+-3 bilateral lower extremity edema, R>L. NEUROLOGICAL: Awake and alert. Motor grossly within normal limits. Normal speech. A/P Assessment and Plan Assessment: 82yF with cellulitis, persistent septic shock, type II NSTEMI secondary to demand ischemia. shock state remains. continue vasopressors and supportive care. start stress dose steroids for presumed adrenal insufficiency. remains critically ill, highly complex. NEURO: Acute metabolic encephalopathy - improving. History of TIA Anxiety Hold sedatives medication OPHTHO: Cataract s/p phacoemulsification and intraocular lens implant left eye 10/22/17 Dr. Valdivia R eye blindness Continue Pred Forte/Vigamox/ Ketorolac ophthalmic RESP: History of lung cancer status post left lower lobectomy COPD CXR with vasc congestion, suspect related to diastolic dysfunction and Afib RVR as EF was preserved on prior Echo. NC wean as tolerated. DuoNeb every 6 hours Albuterol every 2 hours as needed CV: Chronic Atrial fibrillation with RVR on chronic anticoagulation with Eliquis NSTEMI, suspect type II due to Afib RVR/sepsis Chronic diastolic heart failure Septic Shock change to PO amiodarone. Neosynephrine if needed for MAP >65. Troponin elevation likely type II NSTEMI due to sepsis and diastolic heart failure. Trend troponin. Eliquis held. Heparin drip for A fib/NSTEMI. Cardiology consulted. Patient is known to Dr. Massey GI: Heart healthy diet FEN/RENAL: CELESTINO overlying Chronic kidney disease stage III continue madison. Monitor intake and output as marker of perfusion. ID: Septic Shock Cellulitis R leg Leukocytosis, bandemia PCN allergy - hives and swelling Immunocompromised state Aztreonam/Vancomycin for R leg cellulitis which is source of sepsis. Follow-up blood cultures. Obtain influenza screen which was negative. Obtain urine Legionella and pneumococcal antigen. ID consulted RHEUM: Psoriatic arthritis Hold methotrexate 2.5 mg po weekly due to sepsis. HEME: U/s to evaluate for DVT in right leg though less likely given she has been on eliquis at [facility]. ENDO: Hypothyroidism TSH elevated. Resume synthroid 75 mcg for now, may push dose upward but would hold off on titration now in view of A fib RVR and active sepsis. PROPH: Heparin drip provides DVT prophylaxis. Famotidine for stress ulcer prophylaxis ACCESS: . R radial art line placed 11/19. R IJ CVL placed 11/19 (anticoagulated so IJ site chosen) #3 Clinton Early MD Nov 21, 2017 17:47
[2017-11-21] MEDS: VANCOMYCIN INJ 1,500 MG in SODIUM CHLORID 0.9% 500 ML INJ 500 ML IV SCH (17:48)
[2017-11-21] MEDS: AMIODARONE 200 MG TAB PO SCH (18:20)
[2017-11-21] MEDS: HYDROCORTISONE SOD SUCCINATE 100 MG VIAL IV PUSH SCH ×2 (18:20→23:20)
[2017-11-22] VITALS (15 sets, daily range): BP systolic 96–123; BP diastolic 52–71; PULSE 73–94; RESP 15–23; TEMP 96.9–97.6; O2SAT 92–100
[2017-11-22] MEDS: MEROPENEM INJ 1,000 MG in SODIUM CHLORIDE 0.9% INJ 100 ML IV SCH ×2 (03:28→14:54)
[2017-11-22] MEDS: RESP: ALBUTEROL 2.5 MG/IPRATROPIUM 0.5 MG NEB (SCH) INH ×4 (04:23→21:23)
[2017-11-22] MEDS: hydrOXYzine PAMOATE 25 MG CAP PO SCH ×3 (05:01→17:57)
[2017-11-22] MEDS: LEVOTHYROXINE SODIUM 75 MCG TAB PO SCH (05:01)
[2017-11-22] MEDS: HYDROCORTISONE SOD SUCCINATE 100 MG VIAL IV PUSH SCH ×3 (05:01→17:56)
[2017-11-22 05:36] LABS: HEMATOCRIT 42.9 % (35.0-46.0); HEMOGLOBIN 14.4 GM/DL (11.6-15.3); MEAN CELL VOLUME 98.3 FL (80.0-100.0); MEAN CORPUSCULAR HGB CONC 33.5 % (32.0-36.0); MEAN PLATELET VOLUME 8.7 FL (7.0-11.0); PLATELET COUNT 209 TH/MM3 (150-450); RED BLOOD COUNT 4.36 MIL/MM3 (4.00-5.30); RED CELL DISTRIBUTION WIDTH 18.2 % (11.6-17.2); WHITE BLOOD COUNT 6.3 TH/MM3 (4.0-11.0)
[2017-11-22 06:00] LABS: BICARBONATE 21.3 MEQ/L (21.0-32.0); CALCIUM 9.6 MG/DL (8.5-10.1); CREATININE 0.91 MG/DL (0.50-1.00)
[2017-11-22] MEDS: FAMOTIDINE 20 MG TAB PO SCH ×2 (08:08→20:12)
[2017-11-22] MEDS: SODIUM CHLORIDE 0.9% FLUSH 10 ML FLUSH IV FLUSH SCH ×2 (08:09→20:18)
[2017-11-22] MEDS: DOCUSATE SODIUM 50 MG/SENNA 8.6 MG TAB PO SCH ×2 (08:09→20:07)
[2017-11-22] MEDS: AMIODARONE 200 MG TAB PO SCH ×2 (08:09→20:07)
[2017-11-22] MEDS: FUROSEMIDE 40 MG/4 ML VIAL IV PUSH SCH ×2 (08:09→17:56)
[2017-11-22] MEDS: CLOPIDOGREL 75 MG TAB PO SCH (08:09)
[2017-11-22] MEDS: NYSTATIN/TRIAMCINOLONE CREAM 15 GM TOPICAL SCH ×2 (08:10→20:26)
[2017-11-22] MEDS: MIDODRINE 5 MG TAB PO SCH ×2 (11:24→18:07)
[2017-11-22] MEDS: AZITHROMYCIN INJ 500 MG in SODIUM CHLOR 0.9% 250 ML INJ 250 ML IV SCH (14:37)
[2017-11-22] MEDS: HEPARIN-D5W 25,000 U/250 ML 250 ML IV PRN (14:39)
--- NOTE | 2017-11-22 15:47 | HHI.CCPN ---
Subjective Remarks/Hospital Course Hospital Course: 82-year-old female with past medical history of lung cancer, atrial fibrillation on chronic anticoagulation with Eliquis, chronic diastolic heart failure, hypothyroidism, rheumatoid arthritis on methotrexate, who presents from [facility]. She states that for the last 3 nights she has experienced chills and rigors. She has had some sore throat, dry nonproductive cough, and shortness of breath x3 days. Denies chest pain, dysuria or flank pain. She has cellulitis of right hip/buttocks area on exam. She had anorexia for a couple of days but no vomiting, abdominal discomfort or diarrhea. Subjective: 11/20: continues on vasopressors. remains in low-grade septic shock. wbc downtrending. trops downtrending. patient without complaints. ROS negative. 11/21: remains on phenylephrine. random cortisol 15, equivocal. will start empiric stress dose steroids since patient has been on vasopressors x >48h. clinically improving and leg much less swolen and erythematous. denies complaints. tolerating diet. ROS negative. 11/22: continues to clinically improve. however, remains on phenylephrine, which keeps her from mobilizing and getting out of ICU. leg clinically continues to improve. resting comfortably. ROS negative. Objective Vital Signs Date Time Temp Pulse Resp B/P (MAP) Pulse Ox O2 Delivery O2 Flow Rate FiO2 11/22/17 14:00 82 11/22/17 12:00 97.5 15 104/64 (77) 100 115/65 (82) 11/22/17 12:00 Room Air 11/22/17 10:04 2.00 11/21/17 20:00 21 Intake and Output 11/22/17 11/22/17 11/22/17 07:59 15:59 23:59 Intake Total 908 ml 250 ml Output Total 650 ml Balance 258 ml 250 ml Result Diagram: 11/22/17 0355 11/22/17 0355 Objective Remarks GENERAL: Overweight female who is lying in bed, ill appearing. SKIN: erythema of RLE improving. HEAD: Atraumatic. Normocephalic. EYES: Pupils equal and round, reactive bilat. No scleral icterus. No injection or drainage. ENT: No nasal bleeding or discharge. Mucous membranes pink and moist. NECK: Trachea midline. No JVD. CARDIOVASCULAR: irregularly irregular. afib by tele. RESPIRATORY: equal chest rise. nc o2. GASTROINTESTINAL: Abdomen soft, non-tender, nondistended. no guarding. : Madison in place with jaleel urine. MUSCULOSKELETAL: Extremities without clubbing, cyanosis. 2+-3 bilateral lower extremity edema, R>L. NEUROLOGICAL: Awake and alert. Motor grossly within normal limits. Normal speech. A/P Assessment and Plan Assessment: 82yF with cellulitis, persistent septic shock, type II NSTEMI secondary to demand ischemia. shock state remains. continue vasopressors and supportive care. continue stress dose steroids. will add po midodrine as if we can get her off vasopressors, she can more easily mobilize with PT. remains critically ill, highly complex. NEURO: Acute metabolic encephalopathy - improving. History of TIA Anxiety Hold sedatives medication OPHTHO: Cataract s/p phacoemulsification and intraocular lens implant left eye 10/22/17 Dr. Skip Laureano eye blindness Continue Pred Forte/Vigamox/ Ketorolac ophthalmic RESP: History of lung cancer status post left lower lobectomy COPD CXR with vasc congestion, suspect related to diastolic dysfunction and Afib RVR as EF was preserved on prior Echo. NC wean as tolerated. DuoNeb every 6 hours Albuterol every 2 hours as needed CV: Chronic Atrial fibrillation with RVR on chronic anticoagulation with Eliquis NSTEMI, suspect type II due to Afib RVR/sepsis Chronic diastolic heart failure Septic Shock PO amiodarone. Neosynephrine if needed for MAP >65. add midodrine 10mg po q8h. Troponin elevation likely type II NSTEMI due to sepsis and diastolic heart failure. Trend troponin. Eliquis held. Heparin drip for A fib/NSTEMI. Cardiology consulted. Patient is known to Dr. Massey start forced diuresis with lasix GI: Heart healthy diet FEN/RENAL: CELESTINO overlying Chronic kidney disease stage III continue madison. Monitor intake and output as marker of perfusion. ID: Septic Shock Cellulitis R leg Leukocytosis, bandemia PCN allergy - hives and swelling Immunocompromised state Aztreonam/Vancomycin for R leg cellulitis which is source of sepsis. Follow-up blood cultures. Obtain influenza screen which was negative. Obtain urine Legionella and pneumococcal antigen. ID consulted RHEUM: Psoriatic arthritis Hold methotrexate 2.5 mg po weekly due to sepsis. HEME: U/s to evaluate for DVT in right leg though less likely given she has been on eliquis at [facility]. ENDO: Hypothyroidism TSH elevated. Resume synthroid 75 mcg for now, may push dose upward but would hold off on titration now in view of A fib RVR and active sepsis. PROPH: Heparin drip provides DVT prophylaxis. Famotidine for stress ulcer prophylaxis ACCESS: . R radial art line placed 11/19. R IJ CVL placed 11/19 (anticoagulated so IJ site chosen) #4. d/c art line today. Clinton Early MD Nov 22, 2017 15:47
--- NOTE | 2017-11-22 16:20 | HHI.PR ---
Addendum to Inpatient Note Additional Information pt seen around 2 pm full note to follow Karine Santa MD Nov 22, 2017 16:20
[2017-11-22] MEDS: VANCOMYCIN INJ 1,500 MG in SODIUM CHLORID 0.9% 500 ML INJ 500 ML IV SCH (16:21)
--- NOTE | 2017-11-22 23:53 | HHI.IDPN ---
Subjective Subjective Remarks delayed entry pt was seen earlier today Pt is doing much better afenbrile less leg pain On NC O2 Antibiotics vancomycin azithro meropenem Allergies: Coded Allergies: Sulfa (Sulfonamide Antibiotics) (Verified Allergy, Severe, Hives, 11/18/17) bacitracin (Verified Allergy, Severe, RASH-PT DOESN'T REMEMBER, 11/18/17) diatrizoate meglumine (Verified Allergy, Severe, HIVES, 11/18/17) gadobenic acid (Verified Allergy, Severe, HIVES, 11/18/17) gadodiamide (Verified Allergy, Severe, HIVES, 11/18/17) gadoteridol (Verified Allergy, Severe, HIVES, 11/18/17) gramicidin D (Verified Allergy, Severe, RASH, 11/18/17) iodixanol (Verified Allergy, Severe, HIVES, 11/18/17) iohexol (Verified Allergy, Severe, HIVES, 11/18/17) neomycin (Verified Allergy, Severe, RASH, 11/18/17) penicillin G (Verified Allergy, Severe, RASH HIVES, 11/18/17) polymyxin B (Verified Allergy, Severe, RASH, 11/18/17) NSAIDS (Non-Steroidal Anti-Inflamma (Verified Adverse Reaction, Severe, R/ T HIATAL HERNIA, 11/18/17) Objective . Vital Signs Date Time Temp Pulse Resp B/P (MAP) Pulse Ox O2 Delivery O2 Flow Rate FiO2 11/22/17 21:23 98 Nasal Cannula 2.00 11/22/17 20:00 97.6 91 18 103/52 (69) 100 Arterial Line 11/22/17 20:00 97 Nasal Cannula 2.00 11/22/17 20:00 91 11/22/17 18:00 92 11/22/17 16:00 100 Nasal Cannula 2.00 11/22/17 16:00 93 11/22/17 16:00 97.5 93 23 98/52 (67) 99 117/61 (79) 11/22/17 14:00 82 11/22/17 12:00 97.5 73 15 104/64 (77) 100 115/65 (82) 11/22/17 12:00 73 11/22/17 12:00 100 Room Air 11/22/17 10:43 15 11/22/17 10:04 99 Nasal Cannula 2.00 11/22/17 10:00 92 11/22/17 08:00 94 11/22/17 08:00 97.5 94 18 105/59 (74) 100 123/71 (88) 11/22/17 08:00 100 Nasal Cannula 2.00 11/22/17 06:00 93 11/22/17 05:51 92 106/63 11/22/17 04:25 95 Nasal Cannula 2.00 11/22/17 04:00 97.2 86 15 96/52 (67) 98 100/61 (74) 11/22/17 04:00 98 Nasal Cannula 2.00 11/22/17 04:00 86 11/22/17 02:20 92 121/72 11/22/17 02:00 90 11/22/17 01:50 82 113/67 11/22/17 00:10 90 103/62 11/22/17 00:00 96.9 87 16 98/58 (71) 92 108/65 (79) 11/22/17 00:00 87 11/22/17 00:00 97 Nasal Cannula 2.00 11/22/17 11/22/17 11/23/17 15:00 23:00 07:00 Intake Total 250 ml 1275.1 ml Output Total 1750 ml Balance 250 ml -474.9 ml Intake Oral 360 ml IV Total 250 ml 915.1 ml Output Urine Total 1750 ml # Bowel Movements 0 . Laboratory Tests Test 11/21/17 03:30 11/22/17 03:55 White Blood Count 9.3 TH/MM3 6.3 TH/MM3 Red Blood Count 4.39 MIL/MM3 4.36 MIL/MM3 Hemoglobin 14.3 GM/DL 14.4 GM/DL Hematocrit 42.8 % 42.9 % Mean Corpuscular Volume 97.5 FL 98.3 FL Mean Corpuscular Hemoglobin 32.6 PG 33.0 PG Mean Corpuscular Hemoglobin Concent 33.4 % 33.5 % Red Cell Distribution Width 17.8 % 18.2 % Platelet Count 224 TH/MM3 209 TH/MM3 Mean Platelet Volume 9.1 FL 8.7 FL Laboratory Tests Test 11/21/17 03:30 11/22/17 03:55 Blood Urea Nitrogen 26 MG/DL 23 MG/DL Creatinine 1.02 MG/DL 0.91 MG/DL Random Glucose 73 MG/DL 115 MG/DL Calcium Level 9.5 MG/DL 9.6 MG/DL Sodium Level 137 MEQ/L 135 MEQ/L Potassium Level 3.8 MEQ/L 4.1 MEQ/L Chloride Level 106 MEQ/L 105 MEQ/L Carbon Dioxide Level 23.6 MEQ/L 21.3 MEQ/L Anion Gap 7 MEQ/L 9 MEQ/L Estimat Glomerular Filtration Rate 52 ML/MIN 59 ML/MIN Microbiology Date/Time Source Procedure Growth Status 11/21/17 09:12 Sputum Expectorated Sputum Gram Stain - Final Resulted 11/21/17 09:12 Sputum Expectorated Sputum Sputum Culture - Preliminary HEAVY GROWTH NORMAL RESPIRATORY MADDIE... Resulted Imaging Last Impressions Lower Extremity Ultrasound 11/19/17 0000 Signed Impressions: Service Date/Time: Sunday, November 19, 2017 09:37 - CONCLUSION: Normal examination. Jaycob Adorno MD Lower Extremity CT 11/19/17 0000 Signed Impressions: Service Date/Time: Sunday, November 19, 2017 01:54 - CONCLUSION: Mild degenerative changes right hip without fracture. Odell Pritchett MD Chest X-Ray 11/19/17 0000 Signed Impressions: Service Date/Time: Sunday, November 19, 2017 08:12 - CONCLUSION: Right-sided central line in place. No evidence of pneumothorax. Subhash Garcia MD Physical Exam CONSTITUTIONAL/GENERAL: This is an adequately nourished patient, in no apparent distress. TUBES/LINES/DRAINS: SKIN: No jaundice, rashes, or lesions. Ecchymoses on upper extremities. Skin temperature appropriate. Not diaphoretic. Anasarca CARDIOVASCULAR: Regular rate and rhythm without murmurs, gallops, or rubs. No JVD. Peripheral pulses symmetric. RESPIRATORY/CHEST: Symmetric, unlabored respirations. Clear to auscultation. Breath sounds equal bilaterally. No wheezes, rales, or rhonchi. GASTROINTESTINAL: Abdomen soft, non-tender, nondistended. No hepato-splenomegaly , or palpable masses. No guarding. Bowel sounds present. GENITOURINARY: Without palpable bladder distension. Saeed catheter in place with MUSCULOSKELETAL: Extremities without clubbing, cyanosis, less edema soft pitting, up to waist - persistent edema residual erythema RLE , both lower lefg and thigh Thigh incision is well healed not tender to palpation . No joint tenderness or effusion noted. No calf tenderness. No mottling or clubbing. NEUROLOGICAL: Lethargic, easily arousable . Motor and sensory grossly within normal limits. Follows commands. Clear speech. Moves all extremities. PSYCHIATRIC: No obvious anxiety/depression. no apparent hallucinations or other psychotic thought process. Assessment & Plan Remarks Sespsis - improved Hemodyna,mically unstable Pulmonary edema ? underlying PNA RLE cellulitis - improving Diarrhea Allergic PCN: per pt - hives, Keflex - unknown dc meropenem if urine/blood clx remain negative cont vanco cont Karine Hedrick MD Nov 22, 2017 23:53
[2017-11-23] VITALS (14 sets, daily range): BP systolic 95–119; BP diastolic 51–74; PULSE 62–94; RESP 14–24; TEMP 97.4–97.6; O2SAT 97–99
[2017-11-23] MEDS: hydrOXYzine PAMOATE 25 MG CAP PO SCH ×4 (00:06→17:17)
[2017-11-23] MEDS: HYDROCORTISONE SOD SUCCINATE 100 MG VIAL IV PUSH SCH ×4 (00:06→17:17)
[2017-11-23] MEDS: MIDODRINE 5 MG TAB PO SCH ×3 (03:40→18:42)
[2017-11-23] MEDS: PHENYLEPHRINE HCL 160 MG/D5W 484 ML ADMIX IV PRN ×2 (03:43)
[2017-11-23] MEDS: RESP: ALBUTEROL 2.5 MG/IPRATROPIUM 0.5 MG NEB (SCH) INH ×4 (04:00→21:05)
[2017-11-23] MEDS: LEVOTHYROXINE SODIUM 100 MCG TAB PO SCH (06:02)
[2017-11-23 06:42] LABS: HEMATOCRIT 42.5 % (35.0-46.0); HEMOGLOBIN 14.2 GM/DL (11.6-15.3); MEAN CELL VOLUME 97.3 FL (80.0-100.0); MEAN CORPUSCULAR HEMOGLOBIN 32.6 PG (27.0-34.0); MEAN CORPUSCULAR HGB CONC 33.5 % (32.0-36.0); MEAN PLATELET VOLUME 8.3 FL (7.0-11.0); PLATELET COUNT 253 TH/MM3 (150-450); RED BLOOD COUNT 4.36 MIL/MM3 (4.00-5.30); RED CELL DISTRIBUTION WIDTH 17.5 % (11.6-17.2); WHITE BLOOD COUNT 9.1 TH/MM3 (4.0-11.0)
[2017-11-23 07:02] LABS: BICARBONATE 24.7 MEQ/L (21.0-32.0); CALCIUM 9.8 MG/DL (8.5-10.1); CREATININE 1.07 MG/DL (0.50-1.00)
[2017-11-23] MEDS: FAMOTIDINE 20 MG TAB PO SCH ×2 (08:44→20:41)
[2017-11-23] MEDS: CLOPIDOGREL 75 MG TAB PO SCH (08:44)
[2017-11-23] MEDS: FUROSEMIDE 40 MG/4 ML VIAL IV PUSH SCH ×2 (08:44→17:17)
[2017-11-23] MEDS: AMIODARONE 200 MG TAB PO SCH ×2 (08:44→20:41)
[2017-11-23] MEDS: DOCUSATE SODIUM 50 MG/SENNA 8.6 MG TAB PO SCH ×2 (08:44→20:41)
[2017-11-23] MEDS: SODIUM CHLORIDE 0.9% FLUSH 10 ML FLUSH IV FLUSH SCH ×2 (08:52→20:41)
[2017-11-23] MEDS: NYSTATIN/TRIAMCINOLONE CREAM 15 GM TOPICAL SCH ×2 (08:52→20:41)
[2017-11-23] MEDS: HEPARIN-D5W 25,000 U/250 ML 250 ML IV PRN (10:39)
--- NOTE | 2017-11-23 12:40 | HHI.CCPN ---
Subjective Remarks/Hospital Course Hospital Course: 82-year-old female with past medical history of lung cancer, atrial fibrillation on chronic anticoagulation with Eliquis, chronic diastolic heart failure, hypothyroidism, rheumatoid arthritis on methotrexate, who presents from [facility]. She states that for the last 3 nights she has experienced chills and rigors. She has had some sore throat, dry nonproductive cough, and shortness of breath x3 days. Denies chest pain, dysuria or flank pain. She has cellulitis of right hip/buttocks area on exam. She had anorexia for a couple of days but no vomiting, abdominal discomfort or diarrhea. Subjective: 11/20: continues on vasopressors. remains in low-grade septic shock. wbc downtrending. trops downtrending. patient without complaints. ROS negative. 11/21: remains on phenylephrine. random cortisol 15, equivocal. will start empiric stress dose steroids since patient has been on vasopressors x >48h. clinically improving and leg much less swollen and erythematous. denies complaints. tolerating diet. ROS negative. 11/22: continues to clinically improve. however, remains on phenylephrine, which keeps her from mobilizing and getting out of ICU. leg clinically continues to improve. resting comfortably. ROS negative. 11/23: Sitting up in bed. Currently on 40 mcg/min of Tahir-Synephrine but map is about 80. Will wean to DC. Patient also states that her blood pressure ' always runs low' Objective Vital Signs Date Time Temp Pulse Resp B/P (MAP) Pulse Ox O2 Delivery O2 Flow Rate FiO2 11/23/17 09:38 97 11/23/17 06:07 62 100/51 11/23/17 04:00 Nasal Cannula 2.00 11/23/17 04:00 97.5 14 11/21/17 20:00 21 Intake and Output 11/23/17 11/23/17 11/24/17 08:00 16:00 00:00 Intake Total 593.6 ml Output Total 1400 ml Balance -806.4 ml Result Diagram: 11/23/17 0600 11/23/17 0600 Other Results Microbiology Date/Time Source Procedure Growth Status 11/21/17 09:12 Sputum Expectorated Sputum Gram Stain - Final Complete 11/21/17 09:12 Sputum Expectorated Sputum Sputum Culture - Final HEAVY GROWTH NORMAL RESPIRATORY MADDIE Complete Objective Remarks GENERAL: Overweight female who is sitting in bed SKIN: erythema of RLE improving. HEAD: Atraumatic. Normocephalic. EYES: Pupils equal and round, reactive bilateral. No scleral icterus. No injection or drainage. ENT: No nasal bleeding or discharge. Mucous membranes pink and moist. NECK: Trachea midline. No JVD. CARDIOVASCULAR: irregularly irregular. afib by tele. On Tahir-Synephrine 40 mcg/ min RESPIRATORY: equal chest rise. nc o2. GASTROINTESTINAL: Abdomen soft, non-tender, nondistended. no guarding. : Madison in place with jaleel urine. MUSCULOSKELETAL: Extremities without clubbing, cyanosis. 2+-3 bilateral lower extremity edema, R>L. NEUROLOGICAL: Awake and alert. Motor grossly within normal limits. Normal speech. A/P Assessment and Plan Assessment: 82yF with cellulitis, low grade septic shock, type II NSTEMI secondary to demand ischemia. Wean to DC Tahir-Synephrine. continue stress dose steroids. Continue midodrine as if we can get her off vasopressors, she can more easily mobilize with PT. remains critically ill, highly complex. NEURO: Acute metabolic encephalopathy - improving. History of TIA Anxiety Hold all sedatives medication OPHTHO: Cataract s/p phacoemulsification and intraocular lens implant left eye 10/22/17 Dr. Skip Laureano eye blindness Continue Pred Forte/Vigamox/ Ketorolac ophthalmic RESP: History of lung cancer status post left lower lobectomy COPD CXR with vasc congestion, suspect related to diastolic dysfunction and Afib RVR as EF was preserved on prior Echo. NC wean as tolerated. DuoNeb every 6 hours Albuterol every 2 hours as needed CV: Chronic Atrial fibrillation with RVR on chronic anticoagulation with Eliquis NSTEMI, suspect type II due to Afib RVR/sepsis Chronic diastolic heart failure Hypotension PO amiodarone. Neosynephrine to keep MAP >60 (chronically hypotensive). Midodrine 10mg po q8h. Troponin elevation likely type II NSTEMI due to sepsis and diastolic heart failure. Trend troponin. Eliquis held. Heparin drip for A fib/NSTEMI. Cardiology Dr. Li. Patient is known to Dr. Massey Forced diuresis with Lasix GI: Heart healthy diet FEN/RENAL: CELESTINO overlying Chronic kidney disease stage III continue madison. Monitor intake and output as marker of perfusion. ID: Septic Shock Cellulitis R leg Leukocytosis, bandemia PCN allergy - hives and swelling Immunocompromised state Currently on Vanc and azithromycin. Meropenem DC'd by ID R leg cellulitis which is source of sepsis. Follow-up blood cultures. Obtain influenza screen which was negative. Obtain urine Legionella and pneumococcal antigen. ID Dr. Santa RHEUM: Psoriatic arthritis Hold methotrexate 2.5 mg po weekly due to sepsis. HEME: U/s to evaluate for DVT in right leg though less likely given she has been on eliquis at [facility]. Neg for DVT ENDO: Hypothyroidism TSH elevated. Synthroid 75 mcg daily, may push dose upward but would hold off on titration now in view of A fib RVR and active sepsis. PROPH: Heparin drip provides DVT prophylaxis. Famotidine for stress ulcer prophylaxis ACCESS: . R radial art line placed 11/19-11/22. R IJ CVL placed 11/19 ( anticoagulated so IJ site chosen) Wendie Devries MD Nov 23, 2017 12:40
[2017-11-23] MEDS: AZITHROMYCIN INJ 500 MG in SODIUM CHLOR 0.9% 250 ML INJ 250 ML IV SCH (15:09)
[2017-11-23] MEDS: VANCOMYCIN INJ 1,500 MG in SODIUM CHLORID 0.9% 500 ML INJ 500 ML IV SCH (16:07)
[2017-11-24] VITALS (14 sets, daily range): BP systolic 115–147; BP diastolic 58–64; PULSE 81–97; RESP 15–28; TEMP 97.3–97.8; O2SAT 92–100
[2017-11-24] MEDS: hydrOXYzine PAMOATE 25 MG CAP PO SCH ×5 (00:23→23:29)
[2017-11-24] MEDS: HYDROCORTISONE SOD SUCCINATE 100 MG VIAL IV PUSH SCH ×4 (00:23→22:38)
[2017-11-24] MEDS: RESP: ALBUTEROL 2.5 MG/IPRATROPIUM 0.5 MG NEB (SCH) INH ×4 (03:19→20:46)
[2017-11-24] MEDS: HEPARIN-D5W 25,000 U/250 ML 250 ML IV PRN (03:26)
[2017-11-24] MEDS: MIDODRINE 5 MG TAB PO SCH ×3 (03:29→17:34)
[2017-11-24 06:03] LABS: HEMATOCRIT 43.7 % (35.0-46.0); HEMOGLOBIN 14.8 GM/DL (11.6-15.3); MEAN CELL VOLUME 97.2 FL (80.0-100.0); MEAN CORPUSCULAR HEMOGLOBIN 32.8 PG (27.0-34.0); MEAN CORPUSCULAR HGB CONC 33.8 % (32.0-36.0); MEAN PLATELET VOLUME 8.1 FL (7.0-11.0); PLATELET COUNT 237 TH/MM3 (150-450); RED CELL DISTRIBUTION WIDTH 18.1 % (11.6-17.2); WHITE BLOOD COUNT 6.1 TH/MM3 (4.0-11.0)
[2017-11-24] MEDS: LEVOTHYROXINE SODIUM 100 MCG TAB PO SCH (06:13)
[2017-11-24 06:32] LABS: BICARBONATE 25.9 MEQ/L (21.0-32.0); CALCIUM 10.3 MG/DL (8.5-10.1); CREATININE 1.28 MG/DL (0.50-1.00)
--- NOTE | 2017-11-24 08:40 | HHI.PR ---
Subjective Remarks Follow-up sepsis, hypotension, CHF. The patient states that she feels very tired. Denies chest pain or dyspnea. No nausea or vomiting. Objective Vitals Vital Signs Date Time Temp Pulse Resp B/P (MAP) Pulse Ox O2 Delivery O2 Flow Rate FiO2 11/24/17 06:00 95 11/24/17 04:00 96 11/24/17 04:00 97.3 96 20 119/64 (82) 97 11/24/17 04:00 97 Nasal Cannula 2.00 11/24/17 02:00 96 11/24/17 00:00 94 11/24/17 00:00 95 Nasal Cannula 2.00 11/24/17 00:00 97.4 94 20 119/58 (78) 95 11/23/17 22:00 94 11/23/17 21:05 97 Nasal Cannula 2.00 11/23/17 20:00 99 Nasal Cannula 2.00 11/23/17 20:00 97.4 92 20 112/74 (87) 99 11/23/17 20:00 92 11/23/17 18:00 92 11/23/17 16:00 92 11/23/17 16:00 97.4 92 19 99/51 (67) 11/23/17 16:00 100 Room Air 11/23/17 14:00 94 11/23/17 13:00 92 106/53 11/23/17 12:00 89 11/23/17 12:00 97.5 89 24 117/62 (80) 98 11/23/17 12:00 100 Room Air 11/23/17 10:00 89 11/23/17 09:38 97 I/O 11/23/17 11/23/17 11/23/17 11/24/17 11/24/17 11/24/17 07:00 15:00 23:00 07:00 15:00 23:00 Intake Total 593.6 ml 1230 ml 200 ml Output Total 1400 ml 1650 ml 1800 ml Balance -806.4 ml -420 ml -1600 ml Intake Oral 400 ml 360 ml 200 ml IV Total 193.6 ml 870 ml Output Urine Total 1400 ml 1650 ml 1800 ml # Bowel Movements 0 0 0 Result Diagram: 11/24/17 0530 11/24/17 0530 Imaging Last Impressions Lower Extremity Ultrasound 11/19/17 0000 Signed Impressions: Service Date/Time: Sunday, November 19, 2017 09:37 - CONCLUSION: Normal examination. Jaycob Adorno MD Lower Extremity CT 11/19/17 0000 Signed Impressions: Service Date/Time: Sunday, November 19, 2017 01:54 - CONCLUSION: Mild degenerative changes right hip without fracture. Odell Pritchett MD Chest X-Ray 11/19/17 0000 Signed Impressions: Service Date/Time: Sunday, November 19, 2017 08:12 - CONCLUSION: Right-sided central line in place. No evidence of pneumothorax. Subhash Garcia MD Objective Remarks General: Elderly female in no acute distress. Heart: Regular rate and rhythm. No murmur. Lungs: Mild bibasilar crackles. Breathing is nonlabored. Abdomen: Soft, nontender, nondistended. Extremities: 2+ bilateral lower extremity edema, right greater than left. Psych: Alert and oriented. Procedures 11/19/17 right radial arterial catheter placement 11/19/17 right internal jugular central line placement Urinary Catheter: Yes Assessment to: Continue Saeed insert reason: Measure Accurate Output Vascular Central Line Catheter: Yes Assessment to: Continue Date of Insertion: Nov 19, 2017 Line: Central Venous Catheter Side: Right Location: Internal, Jugular A/P Assessment and Plan 1. Septic shock: Sepsis is secondary to cellulitis, possible underlying pneumonia. Appreciate infectious disease recommendations. Continue vancomycin , azithromycin. Meropenem discontinued. Cultures are negative. Still on stress dose steroids. 2. Hypotension: Improved. Continue Midrin. Tahir-Synephrine drip discontinued. 3. Type II non-ST elevation MA: Secondary to sepsis, diastolic heart failure. Appreciate cardiology recommendations. Continue heparin. Eliquis on hold. 4. Chronic diastolic congestive heart failure: Continue diuresis with Lasix. 5. Acute kidney injury superimposed on chronic kidney disease: Likely worsened secondary to diuresis. Monitor BUN and creatinine. Monitor intake/output. 6. Acute metabolic encephalopathy: Improved. 7. History of lung cancer, status post left lower lobectomy 8. COPD: Continue DuoNeb scheduled, albuterol neb as needed. Continue supplemental oxygen. 9. Psoriatic arthritis: Methotrexate on hold. 10. Hypothyroidism: Continue Synthroid. 11. Atrial fibrillation with RVR: Chronic anticoagulation with Eliquis. Now on heparin drip. Appreciate cardiology recommendations. Continue amiodarone. 12. GI prophylaxis: Famotidine. 13. DVT prophylaxis: Heparin drip. 14. Hypokalemia: Supplement potassium per electrolyte protocol. Zohaib Lamas MD Nov 24, 2017 08:40
[2017-11-24] MEDS: DOCUSATE SODIUM 50 MG/SENNA 8.6 MG TAB PO SCH ×2 (09:12→22:07)
[2017-11-24] MEDS: FAMOTIDINE 20 MG TAB PO SCH ×2 (09:12→22:29)
[2017-11-24] MEDS: AMIODARONE 200 MG TAB PO SCH ×2 (09:12→22:07)
[2017-11-24] MEDS: CLOPIDOGREL 75 MG TAB PO SCH (09:12)
[2017-11-24] MEDS: SODIUM CHLORIDE 0.9% FLUSH 10 ML FLUSH IV FLUSH SCH ×2 (09:13→22:06)
[2017-11-24] MEDS: NYSTATIN/TRIAMCINOLONE CREAM 15 GM TOPICAL SCH ×2 (09:13→23:12)
[2017-11-24] MEDS: FUROSEMIDE 20 MG/2 ML VIAL IV PUSH SCH ×2 (11:18→17:34)
[2017-11-24] MEDS: ICU - POTASSIUM CHLORIDE/AQUEOUS SOLN 40 MEQ/100 ML IVPB IV PRN ×2 (11:19→15:19)
--- NOTE | 2017-11-24 15:40 | HHI.IDPN ---
Subjective Subjective Remarks no leg pain no fever doing good on NC O2 Antibiotics vancomycin azithro meropenem Allergies: Coded Allergies: Sulfa (Sulfonamide Antibiotics) (Verified Allergy, Severe, Hives, 11/18/17) bacitracin (Verified Allergy, Severe, RASH-PT DOESN'T REMEMBER, 11/18/17) diatrizoate meglumine (Verified Allergy, Severe, HIVES, 11/18/17) gadobenic acid (Verified Allergy, Severe, HIVES, 11/18/17) gadodiamide (Verified Allergy, Severe, HIVES, 11/18/17) gadoteridol (Verified Allergy, Severe, HIVES, 11/18/17) gramicidin D (Verified Allergy, Severe, RASH, 11/18/17) iodixanol (Verified Allergy, Severe, HIVES, 11/18/17) iohexol (Verified Allergy, Severe, HIVES, 11/18/17) neomycin (Verified Allergy, Severe, RASH, 11/18/17) penicillin G (Verified Allergy, Severe, RASH HIVES, 11/18/17) polymyxin B (Verified Allergy, Severe, RASH, 11/18/17) NSAIDS (Non-Steroidal Anti-Inflamma (Verified Adverse Reaction, Severe, R/ T HIATAL HERNIA, 11/18/17) Objective . Vital Signs Date Time Temp Pulse Resp B/P (MAP) Pulse Ox O2 Delivery O2 Flow Rate FiO2 11/24/17 14:00 96 11/24/17 12:00 99 2.00 11/24/17 12:00 97.8 96 22 126/64 (84) 99 11/24/17 12:00 96 11/24/17 10:00 96 11/24/17 08:55 97 Nasal Cannula 2.00 11/24/17 08:00 93 11/24/17 08:00 92 Nasal Cannula 2.00 11/24/17 08:00 97.3 93 28 147/61 (89) 92 11/24/17 06:00 95 11/24/17 04:00 96 11/24/17 04:00 97.3 96 20 119/64 (82) 97 11/24/17 04:00 97 Nasal Cannula 2.00 11/24/17 02:00 96 11/24/17 00:00 94 11/24/17 00:00 95 Nasal Cannula 2.00 11/24/17 00:00 97.4 94 20 119/58 (78) 95 11/23/17 22:00 94 11/23/17 21:05 97 Nasal Cannula 2.00 11/23/17 20:00 99 Nasal Cannula 2.00 11/23/17 20:00 97.4 92 20 112/74 (87) 99 11/23/17 20:00 92 11/23/17 18:00 92 11/23/17 16:00 92 11/23/17 16:00 97.4 92 19 99/51 (67) 11/23/17 16:00 100 Room Air . Laboratory Tests Test 11/23/17 06:00 11/24/17 05:30 White Blood Count 9.1 TH/MM3 6.1 TH/MM3 Red Blood Count 4.36 MIL/MM3 4.50 MIL/MM3 Hemoglobin 14.2 GM/DL 14.8 GM/DL Hematocrit 42.5 % 43.7 % Mean Corpuscular Volume 97.3 FL 97.2 FL Mean Corpuscular Hemoglobin 32.6 PG 32.8 PG Mean Corpuscular Hemoglobin Concent 33.5 % 33.8 % Red Cell Distribution Width 17.5 % 18.1 % Platelet Count 253 TH/MM3 237 TH/MM3 Mean Platelet Volume 8.3 FL 8.1 FL Laboratory Tests Test 11/23/17 06:00 11/24/17 05:30 Blood Urea Nitrogen 26 MG/DL 28 MG/DL Creatinine 1.07 MG/DL 1.28 MG/DL Random Glucose 121 MG/DL 115 MG/DL Calcium Level 9.8 MG/DL 10.3 MG/DL Sodium Level 137 MEQ/L 140 MEQ/L Potassium Level 3.6 MEQ/L 3.1 MEQ/L Chloride Level 106 MEQ/L 106 MEQ/L Carbon Dioxide Level 24.7 MEQ/L 25.9 MEQ/L Anion Gap 6 MEQ/L 8 MEQ/L Estimat Glomerular Filtration Rate 49 ML/MIN 40 ML/MIN Imaging Last Impressions Lower Extremity Ultrasound 11/19/17 0000 Signed Impressions: Service Date/Time: Sunday, November 19, 2017 09:37 - CONCLUSION: Normal examination. Jaycob Adorno MD Lower Extremity CT 11/19/17 0000 Signed Impressions: Service Date/Time: Sunday, November 19, 2017 01:54 - CONCLUSION: Mild degenerative changes right hip without fracture. Odell Pritchett MD Chest X-Ray 11/19/17 0000 Signed Impressions: Service Date/Time: Sunday, November 19, 2017 08:12 - CONCLUSION: Right-sided central line in place. No evidence of pneumothorax. Subhash Garcia MD Physical Exam CONSTITUTIONAL/GENERAL: This is an adequately nourished patient, in no apparent distress. TUBES/LINES/DRAINS: SKIN: No jaundice, rashes, or lesions. Ecchymoses on upper extremities. Skin temperature appropriate. Not diaphoretic. Anasarca CARDIOVASCULAR: Regular rate and rhythm without murmurs, gallops, or rubs. No JVD. Peripheral pulses symmetric. RESPIRATORY/CHEST: Symmetric, unlabored respirations. Clear to auscultation. Breath sounds equal bilaterally. No wheezes, rales, or rhonchi. GASTROINTESTINAL: Abdomen soft, non-tender, nondistended. No hepato-splenomegaly , or palpable masses. No guarding. Bowel sounds present. GENITOURINARY: Without palpable bladder distension. Saeed catheter in place with MUSCULOSKELETAL: Extremities without clubbing, cyanosis, improving bu still pressent BLE R>>L residual erythema RLE , lower leg only Thigh incision is well healed not tender to palpation . No joint tenderness or effusion noted. No calf tenderness. No mottling or clubbing. NEUROLOGICAL: Lethargic, easily arousable . Motor and sensory grossly within normal limits. Follows commands. Clear speech. Moves all extremities. PSYCHIATRIC: No obvious anxiety/depression. no apparent hallucinations or other psychotic thought process. Assessment & Plan Remarks Sespsis - improved Hemodyna,mically unstable Pulmonary edema ? underlying PNA RLE cellulitis - improving Diarrhea Allergic PCN: per pt - hives, Keflex - unknown stop meropenem (done) cont vanco up to 10-14 days total (5- 9 more days) monitor creatinine yifan barton will see as needed Karine Santa MD Nov 24, 2017 15:40
[2017-11-24] MEDS ORDERED: PHARMACY ORDERED LAB ONE (16:45)
[2017-11-24] MEDS: VANCOMYCIN INJ 1,500 MG in SODIUM CHLORID 0.9% 500 ML INJ 500 ML IV SCH (17:24)
[2017-11-24] MEDS ORDERED: PILL SPLITTER OTHER PRN (21:15)
[2017-11-25] VITALS (14 sets, daily range): BP systolic 110–160; BP diastolic 57–84; PULSE 83–100; RESP 13–21; TEMP 97.5–100.7; O2SAT 87–100
[2017-11-25] MEDS: MIDODRINE 5 MG TAB PO SCH ×3 (02:55→23:21)
[2017-11-25] MEDS: RESP: ALBUTEROL 2.5 MG/IPRATROPIUM 0.5 MG NEB (SCH) INH ×5 (03:08→20:37)
[2017-11-25] MEDS: LEVOTHYROXINE SODIUM 100 MCG TAB PO SCH (05:28)
[2017-11-25] MEDS: HYDROCORTISONE SOD SUCCINATE 100 MG VIAL IV PUSH SCH ×3 (05:28→23:21)
[2017-11-25] MEDS: hydrOXYzine PAMOATE 25 MG CAP PO SCH ×4 (05:28→23:22)
[2017-11-25 06:15] LABS: HEMATOCRIT 42.2 % (35.0-46.0); HEMOGLOBIN 14.3 GM/DL (11.6-15.3); MEAN CELL VOLUME 96.8 FL (80.0-100.0); MEAN CORPUSCULAR HEMOGLOBIN 32.7 PG (27.0-34.0); MEAN CORPUSCULAR HGB CONC 33.8 % (32.0-36.0); MEAN PLATELET VOLUME 7.8 FL (7.0-11.0); PLATELET COUNT 241 TH/MM3 (150-450); RED BLOOD COUNT 4.36 MIL/MM3 (4.00-5.30); RED CELL DISTRIBUTION WIDTH 18.1 % (11.6-17.2); WHITE BLOOD COUNT 5.2 TH/MM3 (4.0-11.0)
[2017-11-25 06:58] LABS: BICARBONATE 26.3 MEQ/L (21.0-32.0); CREATININE 1.33 MG/DL (0.50-1.00); MAGNESIUM 1.8 MG/DL (1.5-2.5)
--- NOTE | 2017-11-25 07:53 | HHI.PR ---
Subjective Remarks Follow up sepsis, CHF. Patient is more confused today. She denies pain, dyspnea. Still requiring oxygen. Objective Vitals Vital Signs Date Time Temp Pulse Resp B/P (MAP) Pulse Ox O2 Delivery O2 Flow Rate FiO2 11/25/17 06:00 96 11/25/17 04:00 94 11/25/17 04:00 97.6 94 13 110/69 (83) 98 11/25/17 04:00 100 Nasal Cannula 3.00 11/25/17 02:00 92 11/25/17 00:00 98 Nasal Cannula 3.00 11/25/17 00:00 97 11/25/17 00:00 97.5 97 18 128/64 (85) 97 11/24/17 22:00 97 11/24/17 20:47 92 Nasal Cannula 2.00 11/24/17 20:00 97.4 81 15 115/62 (79) 100 11/24/17 20:00 97 Nasal Cannula 3.00 11/24/17 20:00 81 11/24/17 18:00 93 11/24/17 16:00 95 11/24/17 16:00 97.8 95 17 128/64 (85) 97 11/24/17 16:00 97 Nasal Cannula 2.00 11/24/17 14:00 96 11/24/17 12:00 99 2.00 11/24/17 12:00 97.8 96 22 126/64 (84) 99 11/24/17 12:00 96 11/24/17 10:00 96 11/24/17 08:55 97 Nasal Cannula 2.00 11/24/17 08:00 93 11/24/17 08:00 92 Nasal Cannula 2.00 11/24/17 08:00 97.3 93 28 147/61 (89) 92 I/O 11/24/17 11/24/17 11/24/17 11/25/17 11/25/17 11/25/17 07:00 15:00 23:00 07:00 15:00 23:00 Intake Total 200 ml 100 ml 615 ml Output Total 1800 ml 900 ml 650 ml Balance -1600 ml -800 ml -35 ml Intake Oral 200 ml 100 ml IV Total 100 ml 515 ml Output Urine Total 1800 ml 900 ml 650 ml # Bowel Movements 0 0 0 Result Diagram: 11/25/17 0530 11/25/17 0530 Imaging Last Impressions Lower Extremity Ultrasound 11/19/17 0000 Signed Impressions: Service Date/Time: Sunday, November 19, 2017 09:37 - CONCLUSION: Normal examination. Jaycob Adorno MD Lower Extremity CT 11/19/17 0000 Signed Impressions: Service Date/Time: Sunday, November 19, 2017 01:54 - CONCLUSION: Mild degenerative changes right hip without fracture. Odell Pritchett MD Chest X-Ray 11/19/17 0000 Signed Impressions: Service Date/Time: Sunday, November 19, 2017 08:12 - CONCLUSION: Right-sided central line in place. No evidence of pneumothorax. Subhash Garcia MD Objective Remarks General: Elderly female in no acute distress. Heart: Regular rate and rhythm. No murmur. Lungs: Mild bibasilar crackles. Breathing is nonlabored. Abdomen: Soft, nontender, nondistended. Extremities: 2+ bilateral lower extremity edema, right greater than left. Psych: Alert, confused. Not oriented to year/month. Procedures 11/19/17 right radial arterial catheter placement 11/19/17 right internal jugular central line placement Urinary Catheter: Yes Assessment to: Remove Vascular Central Line Catheter: Yes Assessment to: Remove Date of Insertion: Nov 19, 2017 Line: Central Venous Catheter Side: Right Location: Internal, Jugular A/P Assessment and Plan 1. Septic shock: Sepsis is secondary to cellulitis, possible underlying pneumonia. Appreciate infectious disease recommendations. Continue vancomycin. Azithromycin, meropenem discontinued. Cultures are negative. Taper steroids. 2. Hypotension: Improved. Continue Midodrine. Tahir-Synephrine drip discontinued. 3. Type II non-ST elevation CA: Secondary to sepsis, diastolic heart failure. Appreciate cardiology recommendations. Continue heparin. Eliquis on hold. 4. Chronic diastolic congestive heart failure: Continue diuresis with Lasix. 5. Acute kidney injury superimposed on chronic kidney disease: Likely worsened secondary to diuresis, Vancomycin. Monitor BUN and creatinine. Monitor intake/ output. 6. Acute metabolic encephalopathy: Improved. 7. History of lung cancer, status post left lower lobectomy 8. COPD: Continue DuoNeb scheduled, albuterol neb as needed. Continue supplemental oxygen. 9. Psoriatic arthritis: Methotrexate on hold. 10. Hypothyroidism: Continue Synthroid. 11. Atrial fibrillation with RVR: Chronic anticoagulation with Eliquis. Now on heparin drip. Appreciate cardiology recommendations. Continue amiodarone. 12. GI prophylaxis: Famotidine. 13. DVT prophylaxis: Heparin drip. 14. Hypokalemia: Improved. Zohaib Lamas MD Nov 25, 2017 07:53
[2017-11-25] MEDS: CLOPIDOGREL 75 MG TAB PO SCH (09:10)
[2017-11-25] MEDS: FAMOTIDINE 20 MG TAB PO SCH ×2 (09:10→23:21)
[2017-11-25] MEDS: AMIODARONE 200 MG TAB PO SCH (09:10)
[2017-11-25] MEDS: DOCUSATE SODIUM 50 MG/SENNA 8.6 MG TAB PO SCH ×2 (09:10→21:00)
[2017-11-25] MEDS: NYSTATIN/TRIAMCINOLONE CREAM 15 GM TOPICAL SCH ×2 (09:11→23:21)
--- NOTE | 2017-11-25 09:53 | RADRPT ---
EXAM DATE/TIME: 11/25/2017 08:45 [facility] COMPARISON: CHEST SINGLE AP, November 19, 2017, 8:12. INDICATIONS : Difficulty breathing. MEDICAL HISTORY : Hypothyroidism. Peripheral vascular disease. Congestive heart failure. Afib. Myocardial infarction. H ypercholesterolemia. HTN. Carcinoma, lung. COPD. Dyspnea. GERD. Hiatal hernia. Arthritis. Rheumatoid arthritis. Osteoporosis. Osteoarthritis. Skin cancer. Depression. Anxiety. SURGICAL HISTORY : Hysterectomy.Thyroidectomy. Cataract surgery. Left lobecotmy. Right femur surgery. Right cheek skin c ancer removal. ENCOUNTER: Subsequent ACUITY: 4 - 6 days PAIN SCORE: 0/10 LOCATION: Bilateral chest FINDINGS: Stable right IJ central line. Mild diffuse interstitial prominence with developing very small bilater al pleural effusions and associated airspace disease at the lung bases. Cardiac silhouette is enlarge d. Pulmonary vascularity is indistinct. Remainder of exam is unchanged. CONCLUSION: 1. Cardiomegaly with pulmonary vascular congestion. 2. Developing very small bilateral pleural effusions with associated airspace disease at the lung bas es, presumably atelectasis. Santos Garduno MD on November 25, 2017 at 9:50 Board Certified Radiologist. This report was verified electronically.
[2017-11-25] MEDS: SODIUM CHLORIDE 0.9% FLUSH 10 ML FLUSH IV FLUSH SCH ×2 (11:04→23:21)
[2017-11-25] MEDS: FUROSEMIDE 20 MG/2 ML VIAL IV PUSH SCH ×2 (11:04→18:19)
--- NOTE | 2017-11-25 11:58 | PD.CARD.PN ---
Subjective Subjective Remarks No events overnight Off vasopressors Amiodarone switched to oral No chest pain/SOB Overall admits to confusion Objective Medications Current Medications Medications (Trade) Dose Ordered Sig/Juwan Route Start Time Stop Time Status Last Admin Pharmacy Profile Note 0 ml @ 0 mls/hr UNSCH OTHER 11/19/17 00:45 (NS Flush) 2 ml UNSCH PRN IV FLUSH 11/19/17 01:00 (NS Flush) 2 ml BID IV FLUSH 11/19/17 09:00 11/25/17 11:04 (Zofran Inj) 4 mg Q6H PRN IV PUSH 11/19/17 01:00 (Albuterol Neb) 2.5 mg Q2HR NEB PRN INH 11/19/17 01:00 Miscellaneous Information 1 Q361D XX 11/19/17 01:00 11/19/17 01:00 (Jennifer-Colace) 1 tab BID PO 11/19/17 09:00 11/25/17 09:10 (Milk Of Magnesia Liq) 30 ml Q12H PRN PO 11/19/17 01:00 (Senokot) 17.2 mg Q12H PRN PO 11/19/17 01:00 (Dulcolax Supp) 10 mg DAILY PRN RECTAL 11/19/17 01:00 (Lactulose Liq) 30 ml DAILY PRN PO 11/19/17 01:00 (Pepcid) 10 mg Q12HR PO 11/19/17 09:00 11/25/17 09:10 Heparin Sodium/ Dextrose 250 ml @ 10 mls/hr TITRATE PRN IV 11/19/17 05:00 11/24/17 03:26 (Mycolog Ii Cream) 1 applic Q12H TOPICAL 11/19/17 09:00 11/25/17 09:11 (Brethine Inj) 1 mg UNSCH PRN SQ 11/19/17 07:30 (Plavix) 75 mg DAILY PO 11/19/17 17:00 11/25/17 09:10 (Vistaril) 25 mg Q6HR PO 11/20/17 00:00 11/25/17 05:28 Vancomycin HCl 1500 mg/Sodium Chloride 515 ml @ 250 mls/hr Q24H IV 11/20/17 17:00 Future Hold 11/24/17 17:24 (Roxicodone) 5 mg Q4H PRN PO 11/20/17 13:00 11/22/17 09:08 Miscellaneous Information D/C ICU ELECTROLYTE ORDERS... UNSCH PRN .XX 11/20/17 13:15 Miscellaneous Information ICU - CALL ORDERING PHYSIC... UNSCH PRN .XX 11/20/17 13:15 Potassium Chloride 100 ml @ 25 mls/hr UNSCH PRN IV 11/20/17 13:15 11/24/17 15:19 (K-Lyte Cl Eff) 50 meq UNSCH PRN PO 11/20/17 13:15 11/20/17 13:23 Potassium Chloride 100 ml @ 50 mls/hr UNSCH PRN IV 11/20/17 13:15 Magnesium Sulfate 4 gm/Sodium Chloride 108 ml @ 54 mls/hr UNSCH PRN IV 11/20/17 13:15 Magnesium Sulfate 2 gm/Sodium Chloride 104 ml @ 52 mls/hr UNSCH PRN IV 11/20/17 13:15 (Mag-Ox) 800 mg UNSCH PRN PO 11/20/17 13:15 Sodium Phosphate 30 mmol/Sodium Chloride 260 ml @ 43.333 mls/ hr UNSCH PRN IV 11/20/17 13:15 (K-Phos) 2,000 mg UNSCH PRN PO 11/20/17 13:15 Potassium Phosphate 30 mmol/ Sodium Chloride 260 ml @ 43.333 mls/ hr UNSCH PRN IV 11/20/17 13:15 (Cordarone) 200 mg Q12HR PO 11/21/17 17:45 11/25/17 09:10 (Duoneb Neb) 1 ampule Q6HR NEB INH 11/22/17 10:00 11/25/17 08:24 (Synthroid) 100 mcg DAILY@0600 PO 11/23/17 06:00 11/25/17 05:28 (Proamatine) 10 mg Q8H PO 11/22/17 11:15 11/25/17 02:55 (Lasix Inj) 20 mg BID@ IV PUSH 11/24/17 09:00 11/25/17 11:04 (SoluCORTEF INJ) 50 mg Q8HR IV PUSH 11/24/17 14:00 11/25/17 05:28 (Pill Splitter) 1 ea UNSCH PRN OTHER 11/24/17 21:15 Vital Signs / I&O Vital Signs Date Time Temp Pulse Resp B/P (MAP) Pulse Ox O2 Delivery O2 Flow Rate FiO2 11/25/17 08:25 97 Nasal Cannula 3.00 11/25/17 06:00 96 11/25/17 04:00 94 11/25/17 04:00 97.6 94 13 110/69 (83) 98 11/25/17 04:00 100 Nasal Cannula 3.00 11/25/17 02:00 92 11/25/17 00:00 98 Nasal Cannula 3.00 11/25/17 00:00 97 11/25/17 00:00 97.5 97 18 128/64 (85) 97 11/24/17 22:00 97 11/24/17 20:47 92 Nasal Cannula 2.00 11/24/17 20:00 97.4 81 15 115/62 (79) 100 11/24/17 20:00 97 Nasal Cannula 3.00 11/24/17 20:00 81 11/24/17 18:00 93 11/24/17 16:00 95 11/24/17 16:00 97.8 95 17 128/64 (85) 97 11/24/17 16:00 97 Nasal Cannula 2.00 11/24/17 14:00 96 11/24/17 12:00 99 2.00 11/24/17 12:00 97.8 96 22 126/64 (84) 99 11/24/17 12:00 96 I/O 11/24/17 11/24/17 11/24/17 11/25/17 11/25/17 11/25/17 07:00 15:00 23:00 07:00 15:00 23:00 Intake Total 200 ml 100 ml 615 ml Output Total 1800 ml 900 ml 650 ml Balance -1600 ml -800 ml -35 ml Intake Oral 200 ml 100 ml IV Total 100 ml 515 ml Output Urine Total 1800 ml 900 ml 650 ml # Bowel Movements 0 0 0 Physical Exam GENERAL: NAD SKIN: Warm and dry. HEAD: Atraumatic. Normocephalic. EYES: Pupils equal and round. No scleral icterus. No injection or drainage. ENT: No nasal bleeding or discharge. Mucous membranes pink and moist. NECK: Trachea midline. No JVD. CARDIOVASCULAR: Irregularly irregular RESPIRATORY: No accessory muscle use. Scattered rhonchi GASTROINTESTINAL: Abdomen soft, non-tender, nondistended. Hepatic and splenic margins not palpable. MUSCULOSKELETAL: Extremities without clubbing, cyanosis, or edema. No obvious deformities. NEUROLOGICAL: Awake and alert. No obvious cranial nerve deficits. Motor grossly within normal limits. Five out of 5 muscle strength in the arms and legs. Normal speech. PSYCHIATRIC: Appropriate mood and affect; insight and judgment normal. Laboratory Laboratory Tests Test 11/24/17 17:15 11/24/17 23:15 11/25/17 05:30 Vancomycin Level Trough 25.0 MCG/ML Potassium Level 3.7 MEQ/L 3.8 MEQ/L White Blood Count 5.2 TH/MM3 Red Blood Count 4.36 MIL/MM3 Hemoglobin 14.3 GM/DL Hematocrit 42.2 % Mean Corpuscular Volume 96.8 FL Mean Corpuscular Hemoglobin 32.7 PG Mean Corpuscular Hemoglobin Concent 33.8 % Red Cell Distribution Width 18.1 % Platelet Count 241 TH/MM3 Mean Platelet Volume 7.8 FL Blood Urea Nitrogen 29 MG/DL Creatinine 1.33 MG/DL Random Glucose 107 MG/DL Calcium Level 10.0 MG/DL Magnesium Level 1.8 MG/DL Sodium Level 141 MEQ/L Chloride Level 107 MEQ/L Carbon Dioxide Level 26.3 MEQ/L Anion Gap 8 MEQ/L Estimat Glomerular Filtration Rate 38 ML/MIN Imaging Last 24 hours Impressions Chest X-Ray 11/25/17 0000 Signed Impressions: Service Date/Time: Saturday, November 25, 2017 08:45 - CONCLUSION: 1. Cardiomegaly with pulmonary vascular congestion. 2. Developing very small bilateral pleural effusions with associated airspace disease at the lung bases, presumably atelectasis. Santos Garduno MD Assessment and Plan Problem List: (1) Sepsis ICD Codes: A41.9 - Sepsis, unspecified organism Status: Acute (2) Pneumonia ICD Codes: J18.9 - Pneumonia, unspecified organism Status: Acute (3) Non-ST elevation IA (NSTEMI) ICD Codes: I21.4 - Non-ST elevation (NSTEMI) myocardial infarction Status: Acute (4) Acute diastolic (congestive) heart failure ICD Codes: I50.31 - Acute diastolic (congestive) heart failure (5) CKD (chronic kidney disease) stage 3, GFR 30-59 ml/min ICD Codes: N18.3 - Chronic kidney disease, stage 3 (moderate) Assessment and Plan 1) Sepsis/PNA/cellulitis Anti-biotics per ID 2) NSTEMI Most likely type 2 Discussed consideration of ischemic evaluation with cardiac catheterization or stress testing, but patient does not want further evaluation Con't medical management 3) Afib Con't on Heparin drip Eventually restart Eliquis before discharge Plan to decrease Amiodarone and restart PO Cardizem at 30mg q6 Afib with RVR most likely secondary to overall illness 4) EF 65-70% Problem Qualifiers (1) Sepsis: Qualified Codes: A41.9 - Sepsis, unspecified organism (2) Pneumonia: Sonny Li DO Nov 25, 2017 11:58
[2017-11-25] MEDS: DILTIAZEM HCL 30 MG TAB PO SCH ×3 (14:33→23:22)
--- NOTE | 2017-11-25 15:57 | RADRPT ---
EXAM DATE/TIME: 11/25/2017 15:28 [facility] COMPARISON: No previous studies available for comparison. INDICATIONS : Altered mental status. RADIATION DOSE: 48.25 CTDIvol (mGy) MEDICAL HISTORY : Carcinoma, lung. Cardiovascular disease Hypertension. SURGICAL HISTORY : Hysterectomy. ENCOUNTER: Initial ACUITY: 1 day PAIN SCALE: 0/10 LOCATION: cranial TECHNIQUE: Multiple contiguous axial images were obtained of the head. Using automated exposure control and adj ustment of the mA and/or kV according to patient size, radiation dose was kept as low as reasonably a chievable to obtain optimal diagnostic quality images. DICOM format image data is available electro nically for review and comparison. FINDINGS: CEREBRUM: The ventricles are normal for age. No evidence of midline shift, mass lesion, hemorrhage or acute in farction. No extra-axial fluid collections are seen. POSTERIOR FOSSA: The cerebellum and brainstem are intact. The 4th ventricle is midline. The cerebellopontine angle i s unremarkable. EXTRACRANIAL: The visualized portion of the orbits is intact. SKULL: The calvaria is intact. No evidence of skull fracture. CONCLUSION: No acute intracranial abnormality demonstrated. Jaycob Heredia MD on November 25, 2017 at 15:54 Board Certified Radiologist. This report was verified electronically.
[2017-11-26] VITALS (12 sets, daily range): BP systolic 97–125; BP diastolic 55–64; PULSE 64–100; RESP 13–21; TEMP 96.4–98.4; O2SAT 85–100
[2017-11-26] MEDS: HEPARIN-D5W 25,000 U/250 ML 250 ML IV PRN (03:07)
[2017-11-26] MEDS: RESP: ALBUTEROL 2.5 MG/IPRATROPIUM 0.5 MG NEB (SCH) INH ×2 (04:04→07:40)
[2017-11-26] MEDS: LEVOTHYROXINE SODIUM 100 MCG TAB PO SCH (04:28)
[2017-11-26] MEDS: MIDODRINE 5 MG TAB PO SCH ×3 (04:28→20:42)
[2017-11-26] MEDS: HYDROCORTISONE SOD SUCCINATE 100 MG VIAL IV PUSH SCH ×2 (04:28→17:36)
[2017-11-26] MEDS: DILTIAZEM HCL 30 MG TAB PO SCH ×4 (04:28→23:15)
[2017-11-26] MEDS: hydrOXYzine PAMOATE 25 MG CAP PO SCH ×4 (04:28→23:15)
[2017-11-26 05:56] LABS: HEMATOCRIT 45.1 % (35.0-46.0); HEMOGLOBIN 15.3 GM/DL (11.6-15.3); MEAN CELL VOLUME 96.7 FL (80.0-100.0); MEAN CORPUSCULAR HEMOGLOBIN 32.9 PG (27.0-34.0); PLATELET COUNT 241 TH/MM3 (150-450); RED BLOOD COUNT 4.67 MIL/MM3 (4.00-5.30); RED CELL DISTRIBUTION WIDTH 17.8 % (11.6-17.2)
[2017-11-26 06:19] LABS: BICARBONATE 25.5 MEQ/L (21.0-32.0); CALCIUM 9.8 MG/DL (8.5-10.1); CREATININE 1.38 MG/DL (0.50-1.00)
[2017-11-26 06:21] LABS: RANDOM VANCOMYCIN 23.1 COMMENT
[2017-11-26] MEDS: SODIUM CHLORIDE 0.9% FLUSH 10 ML FLUSH IV FLUSH SCH ×2 (07:57→20:42)
[2017-11-26] MEDS: FAMOTIDINE 20 MG TAB PO SCH ×2 (07:58→20:41)
[2017-11-26] MEDS: FUROSEMIDE 20 MG/2 ML VIAL IV PUSH SCH ×2 (07:58→17:36)
[2017-11-26] MEDS: AMIODARONE 200 MG TAB PO SCH (07:58)
[2017-11-26] MEDS: NYSTATIN/TRIAMCINOLONE CREAM 15 GM TOPICAL SCH ×2 (07:59→20:42)
[2017-11-26] MEDS: DOCUSATE SODIUM 50 MG/SENNA 8.6 MG TAB PO SCH ×2 (07:59→20:42)
[2017-11-26] MEDS: CLOPIDOGREL 75 MG TAB PO SCH (07:59)
--- NOTE | 2017-11-26 08:28 | HHI.PR ---
Subjective Remarks Follow up sepsis, CHF. Patient reports cough that is productive of scant sputum. Denies chest pain. Swelling is improving. Objective Vitals Vital Signs Date Time Temp Pulse Resp B/P (MAP) Pulse Ox O2 Delivery O2 Flow Rate FiO2 11/26/17 07:40 98 Nasal Cannula 2.00 11/26/17 06:00 97 11/26/17 04:00 97.4 93 17 114/56 (75) 99 11/26/17 04:00 96 Nasal Cannula 2.00 11/26/17 04:00 93 11/26/17 02:00 97 11/26/17 00:00 100 11/26/17 00:00 100 Nasal Cannula 2.00 11/26/17 00:00 98.4 97 13 122/58 (79) 100 11/25/17 22:00 100 11/25/17 20:00 98 11/25/17 20:00 95 Nasal Cannula 2.00 11/25/17 20:00 100.7 98 21 160/84 (109) 87 11/25/17 19:02 98 Nasal Cannula 2.00 11/25/17 18:00 96 11/25/17 16:00 83 11/25/17 16:00 100 Nasal Cannula 3.00 11/25/17 16:00 97.8 83 15 114/57 (76) 98 11/25/17 14:00 96 11/25/17 12:00 100 Nasal Cannula 3.00 11/25/17 12:00 98.2 97 17 117/59 (78) 95 11/25/17 12:00 97 11/25/17 10:00 98 11/25/17 08:25 97 Nasal Cannula 3.00 I/O 11/25/17 11/25/17 11/25/17 11/26/17 11/26/17 11/26/17 07:00 15:00 23:00 07:00 15:00 23:00 Intake Total 615 ml 550 ml 100 ml Output Total 650 ml 1000 ml Balance -35 ml -450 ml 100 ml Intake Oral 100 ml 550 ml 100 ml IV Total 515 ml Output Urine Total 650 ml 1000 ml # Voids 2 # Bowel Movements 0 2 Result Diagram: 11/26/17 0429 11/26/17 0439 Imaging Last Impressions Head CT 11/25/17 0000 Signed Impressions: Service Date/Time: Saturday, November 25, 2017 15:28 - CONCLUSION: No acute intracranial abnormality demonstrated. Jaycob Heredia MD Chest X-Ray 11/25/17 0000 Signed Impressions: Service Date/Time: Saturday, November 25, 2017 08:45 - CONCLUSION: 1. Cardiomegaly with pulmonary vascular congestion. 2. Developing very small bilateral pleural effusions with associated airspace disease at the lung bases, presumably atelectasis. Santos Garduno MD Lower Extremity Ultrasound 11/19/17 0000 Signed Impressions: Service Date/Time: Sunday, November 19, 2017 09:37 - CONCLUSION: Normal examination. Jaycob Adorno MD Lower Extremity CT 11/19/17 0000 Signed Impressions: Service Date/Time: Sunday, November 19, 2017 01:54 - CONCLUSION: Mild degenerative changes right hip without fracture. Odell Pritchett MD Objective Remarks General: Elderly female in no acute distress. Heart: Regular rate and rhythm. No murmur. Lungs: Mild bibasilar crackles. Breathing is nonlabored. Abdomen: Soft, nontender, nondistended. Extremities: 2+ bilateral lower extremity edema, right greater than left. Slight improvement in edema today. Psych: Alert, confused. Not oriented to year/month. Procedures 11/19/17 right radial arterial catheter placement 11/19/17 right internal jugular central line placement Urinary Catheter: No Vascular Central Line Catheter: No A/P Assessment and Plan 1. Septic shock: Sepsis is secondary to cellulitis, possible underlying pneumonia. Appreciate infectious disease recommendations. Continue vancomycin. Azithromycin, meropenem discontinued. Cultures are negative. Taper steroids. 2. Hypotension: Improved. Continue Midodrine. Tahir-Synephrine drip discontinued. 3. Type II non-ST elevation [place]: Secondary to sepsis, diastolic heart failure. Appreciate cardiology recommendations. Continue heparin drip. Eliquis on hold. 4. Chronic diastolic congestive heart failure: Continue diuresis with Lasix. 5. Acute kidney injury superimposed on chronic kidney disease: Likely worsened secondary to diuresis, Vancomycin. Monitor BUN and creatinine. Monitor intake/ output. 6. Acute metabolic encephalopathy: Improved. 7. History of lung cancer, status post left lower lobectomy 8. COPD: Continue DuoNeb scheduled, albuterol neb as needed. Continue supplemental oxygen. 9. Psoriatic arthritis: Methotrexate on hold. 10. Hypothyroidism: Continue Synthroid. 11. Atrial fibrillation with RVR: Chronic anticoagulation with Eliquis. Now on heparin drip. Appreciate cardiology recommendations. Continue amiodarone, diltiazem. 12. GI prophylaxis: Famotidine. 13. DVT prophylaxis: Heparin drip. 14. Hypokalemia: Improved. Supplement potassium. 15. Confusion: Mental status is improved today. Head CT shows no acute changes. Discharge Planning Transfer to med/surg floor with telemetry. Zohaib Lamas MD Nov 26, 2017 08:28
[2017-11-26] MEDS: POTASSIUM CHLORIDE 10 MEQ CONTROLLED RELEASE TAB PO SCH (09:28)
--- NOTE | 2017-11-26 14:34 | PD.CARD.PN ---
Subjective Subjective Remarks No events overnight Off vasopressors Amiodarone switched to oral No chest pain/SOB Less confused Objective Medications Current Medications Medications (Trade) Dose Ordered Sig/Juwan Route Start Time Stop Time Status Last Admin Pharmacy Profile Note 0 ml @ 0 mls/hr UNSCH OTHER 11/19/17 00:45 (NS Flush) 2 ml UNSCH PRN IV FLUSH 11/19/17 01:00 11/26/17 07:58 (NS Flush) 2 ml BID IV FLUSH 11/19/17 09:00 11/26/17 07:57 (Zofran Inj) 4 mg Q6H PRN IV PUSH 11/19/17 01:00 (Albuterol Neb) 2.5 mg Q2HR NEB PRN INH 11/19/17 01:00 Miscellaneous Information 1 Q361D XX 11/19/17 01:00 11/19/17 01:00 (Jennifer-Colace) 1 tab BID PO 11/19/17 09:00 11/25/17 09:10 (Milk Of Magnesia Liq) 30 ml Q12H PRN PO 11/19/17 01:00 (Senokot) 17.2 mg Q12H PRN PO 11/19/17 01:00 11/25/17 18:20 (Dulcolax Supp) 10 mg DAILY PRN RECTAL 11/19/17 01:00 11/25/17 18:20 (Lactulose Liq) 30 ml DAILY PRN PO 11/19/17 01:00 11/25/17 12:07 (Pepcid) 10 mg Q12HR PO 11/19/17 09:00 11/26/17 07:58 Heparin Sodium/ Dextrose 250 ml @ 10 mls/hr TITRATE PRN IV 11/19/17 05:00 11/26/17 03:07 (Mycolog Ii Cream) 1 applic Q12H TOPICAL 11/19/17 09:00 11/26/17 07:59 (Brethine Inj) 1 mg UNSCH PRN SQ 11/19/17 07:30 (Plavix) 75 mg DAILY PO 11/19/17 17:00 11/26/17 07:59 (Vistaril) 25 mg Q6HR PO 11/20/17 00:00 11/26/17 11:51 Vancomycin HCl 1500 mg/Sodium Chloride 515 ml @ 250 mls/hr Q24H IV 11/20/17 17:00 Future Hold 11/24/17 17:24 (Roxicodone) 5 mg Q4H PRN PO 11/20/17 13:00 11/26/17 09:16 Miscellaneous Information D/C ICU ELECTROLYTE ORDERS... UNSCH PRN .XX 11/20/17 13:15 Miscellaneous Information ICU - CALL ORDERING PHYSIC... UNSCH PRN .XX 11/20/17 13:15 Potassium Chloride 100 ml @ 25 mls/hr UNSCH PRN IV 11/20/17 13:15 11/24/17 15:19 (K-Lyte Cl Eff) 50 meq UNSCH PRN PO 11/20/17 13:15 11/20/17 13:23 Potassium Chloride 100 ml @ 50 mls/hr UNSCH PRN IV 11/20/17 13:15 Magnesium Sulfate 4 gm/Sodium Chloride 108 ml @ 54 mls/hr UNSCH PRN IV 11/20/17 13:15 Magnesium Sulfate 2 gm/Sodium Chloride 104 ml @ 52 mls/hr UNSCH PRN IV 11/20/17 13:15 (Mag-Ox) 800 mg UNSCH PRN PO 11/20/17 13:15 Sodium Phosphate 30 mmol/Sodium Chloride 260 ml @ 43.333 mls/ hr UNSCH PRN IV 11/20/17 13:15 (K-Phos) 2,000 mg UNSCH PRN PO 11/20/17 13:15 Potassium Phosphate 30 mmol/ Sodium Chloride 260 ml @ 43.333 mls/ hr UNSCH PRN IV 11/20/17 13:15 (Synthroid) 100 mcg DAILY@0600 PO 11/23/17 06:00 11/26/17 04:28 (Proamatine) 10 mg Q8H PO 11/22/17 11:15 11/26/17 11:51 (Lasix Inj) 20 mg BID@ IV PUSH 11/24/17 09:00 11/26/17 07:58 (Pill Splitter) 1 ea UNSCH PRN OTHER 11/24/17 21:15 (Cordarone) 200 mg DAILY PO 11/26/17 09:00 11/26/17 07:58 (Cardizem) 30 mg Q6HR PO 11/25/17 14:00 11/26/17 11:51 (KCl) 20 meq DAILY PO 11/26/17 09:00 11/26/17 09:28 (SoluCORTEF INJ) 50 mg Q12H IV PUSH 11/26/17 17:00 Vital Signs / I&O Vital Signs Date Time Temp Pulse Resp B/P (MAP) Pulse Ox O2 Delivery O2 Flow Rate FiO2 11/26/17 12:00 88 11/26/17 12:00 94 Nasal Cannula 2.00 11/26/17 12:00 96.4 88 17 103/59 (74) 87 11/26/17 10:00 97 11/26/17 08:00 97.4 97 19 120/55 (76) 85 11/26/17 08:00 97 11/26/17 08:00 94 Nasal Cannula 2.00 11/26/17 07:40 98 Nasal Cannula 2.00 11/26/17 07:00 97 19 125/64 (84) 100 11/26/17 06:00 97 11/26/17 04:00 97.4 93 17 114/56 (75) 99 11/26/17 04:00 96 Nasal Cannula 2.00 11/26/17 04:00 93 11/26/17 02:00 97 11/26/17 00:00 100 11/26/17 00:00 100 Nasal Cannula 2.00 11/26/17 00:00 98.4 97 13 122/58 (79) 100 11/25/17 22:00 100 11/25/17 20:00 98 11/25/17 20:00 95 Nasal Cannula 2.00 11/25/17 20:00 100.7 98 21 160/84 (109) 87 11/25/17 19:02 98 Nasal Cannula 2.00 11/25/17 18:00 96 11/25/17 16:00 83 11/25/17 16:00 100 Nasal Cannula 3.00 11/25/17 16:00 97.8 83 15 114/57 (76) 98 I/O 11/25/17 11/25/17 11/25/17 11/26/17 11/26/17 11/26/17 07:00 15:00 23:00 07:00 15:00 23:00 Intake Total 615 ml 550 ml 100 ml Output Total 650 ml 1000 ml Balance -35 ml -450 ml 100 ml Intake Oral 100 ml 550 ml 100 ml IV Total 515 ml Output Urine Total 650 ml 1000 ml # Voids 2 # Bowel Movements 0 2 Physical Exam GENERAL: NAD SKIN: Warm and dry. HEAD: Atraumatic. Normocephalic. EYES: Pupils equal and round. No scleral icterus. No injection or drainage. ENT: No nasal bleeding or discharge. Mucous membranes pink and moist. NECK: Trachea midline. No JVD. CARDIOVASCULAR: Irregularly irregular RESPIRATORY: No accessory muscle use. Scattered rhonchi GASTROINTESTINAL: Abdomen soft, non-tender, nondistended. Hepatic and splenic margins not palpable. MUSCULOSKELETAL: Extremities without clubbing, cyanosis, or edema. No obvious deformities. NEUROLOGICAL: Awake and alert. No obvious cranial nerve deficits. Motor grossly within normal limits. Five out of 5 muscle strength in the arms and legs. Normal speech. PSYCHIATRIC: Appropriate mood and affect; insight and judgment normal. Laboratory Laboratory Tests Test 11/25/17 18:30 11/26/17 04:29 11/26/17 04:39 11/26/17 09:56 Activated Partial Thromboplast Time 75.3 SEC 98.3 SEC 211.0 SEC White Blood Count 8.0 TH/MM3 Red Blood Count 4.67 MIL/MM3 Hemoglobin 15.3 GM/DL Hematocrit 45.1 % Mean Corpuscular Volume 96.7 FL Mean Corpuscular Hemoglobin 32.9 PG Mean Corpuscular Hemoglobin Concent 34.0 % Red Cell Distribution Width 17.8 % Platelet Count 241 TH/MM3 Mean Platelet Volume 8.0 FL Blood Urea Nitrogen 27 MG/DL Creatinine 1.38 MG/DL Random Glucose 101 MG/DL Calcium Level 9.8 MG/DL Sodium Level 139 MEQ/L Potassium Level 3.5 MEQ/L Chloride Level 105 MEQ/L Carbon Dioxide Level 25.5 MEQ/L Anion Gap 9 MEQ/L Estimat Glomerular Filtration Rate 37 ML/MIN Random Vancomycin Level 23.1 COMMENT Test 11/26/17 12:05 Activated Partial Thromboplast Time 49.3 SEC Assessment and Plan Problem List: (1) Sepsis ICD Codes: A41.9 - Sepsis, unspecified organism Status: Acute (2) Pneumonia ICD Codes: J18.9 - Pneumonia, unspecified organism Status: Acute (3) Non-ST elevation [place] (NSTEMI) ICD Codes: I21.4 - Non-ST elevation (NSTEMI) myocardial infarction Status: Acute (4) Acute diastolic (congestive) heart failure ICD Codes: I50.31 - Acute diastolic (congestive) heart failure (5) CKD (chronic kidney disease) stage 3, GFR 30-59 ml/min ICD Codes: N18.3 - Chronic kidney disease, stage 3 (moderate) Assessment and Plan 1) Sepsis/PNA/cellulitis Anti-biotics per ID 2) NSTEMI Most likely type 2 Discussed consideration of ischemic evaluation with cardiac catheterization or stress testing, but patient does not want further evaluation Con't medical management 3) Afib Con't on Heparin drip Eventually restart Eliquis before discharge Plan to decrease Amiodarone and restart PO Cardizem at 30mg q6 Afib with RVR most likely secondary to overall illness 4) EF 65-70% Problem Qualifiers (1) Sepsis: Qualified Codes: A41.9 - Sepsis, unspecified organism (2) Pneumonia: Sonny Li DO Nov 26, 2017 14:34
[2017-11-27] VITALS (11 sets, daily range): BP systolic 104–130; BP diastolic 57–67; PULSE 47–94; RESP 13–20; TEMP 96.8–97.8; O2SAT 84–100
[2017-11-27] MEDS: DILTIAZEM HCL 30 MG TAB PO SCH ×3 (04:44→17:34)
[2017-11-27] MEDS: hydrOXYzine PAMOATE 25 MG CAP PO SCH ×3 (04:44→17:34)
[2017-11-27] MEDS: MIDODRINE 5 MG TAB PO SCH ×3 (04:44→20:13)
[2017-11-27] MEDS: LEVOTHYROXINE SODIUM 100 MCG TAB PO SCH (04:44)
[2017-11-27] MEDS: HYDROCORTISONE SOD SUCCINATE 100 MG VIAL IV PUSH SCH ×2 (04:44→17:34)
[2017-11-27] MEDS: HEPARIN-D5W 25,000 U/250 ML 250 ML IV PRN (07:43)
--- NOTE | 2017-11-27 08:08 | HHI.PR ---
Subjective Remarks Follow-up CHF, sepsis. Patient denies shortness of breath at rest. No chest pain. No nausea or vomiting today. Objective Vitals Vital Signs Date Time Temp Pulse Resp B/P (MAP) Pulse Ox O2 Delivery O2 Flow Rate FiO2 11/27/17 04:00 70 11/27/17 04:00 97.8 70 15 109/63 (78) 97 11/27/17 04:00 97 Nasal Cannula 2.00 11/27/17 00:00 94 11/27/17 00:00 92 Nasal Cannula 2.00 11/27/17 00:00 97.8 94 18 126/67 (86) 92 11/26/17 21:17 92 Nasal Cannula 4.00 11/26/17 20:00 94 Nasal Cannula 2.00 11/26/17 20:00 93 11/26/17 20:00 97.5 93 21 116/62 (80) 94 11/26/17 16:00 64 11/26/17 16:00 97.7 64 13 97/56 (70) 98 11/26/17 16:00 98 Nasal Cannula 2.00 11/26/17 12:00 88 11/26/17 12:00 94 Nasal Cannula 2.00 11/26/17 12:00 96.4 88 17 103/59 (74) 87 11/26/17 10:00 97 I/O 11/26/17 11/26/17 11/26/17 11/27/17 11/27/17 11/27/17 07:00 15:00 23:00 07:00 15:00 23:00 Intake Total 100 ml 858 ml 150 ml 31.4 ml Output Total 750 ml Balance 100 ml 108 ml 150 ml 31.4 ml Intake Oral 100 ml 708 ml 150 ml IV Total 150 ml 31.4 ml Output Urine Total 750 ml # Voids 2 3 # Bowel Movements 2 1 0 Result Diagram: 11/26/17 0429 11/26/17 0439 Imaging Last Impressions Head CT 11/25/17 0000 Signed Impressions: Service Date/Time: Saturday, November 25, 2017 15:28 - CONCLUSION: No acute intracranial abnormality demonstrated. Jaycob Hereida MD Chest X-Ray 11/25/17 0000 Signed Impressions: Service Date/Time: Saturday, November 25, 2017 08:45 - CONCLUSION: 1. Cardiomegaly with pulmonary vascular congestion. 2. Developing very small bilateral pleural effusions with associated airspace disease at the lung bases, presumably atelectasis. Santos Garduno MD Lower Extremity Ultrasound 11/19/17 0000 Signed Impressions: Service Date/Time: Sunday, November 19, 2017 09:37 - CONCLUSION: Normal examination. Jaycob Adorno MD Lower Extremity CT 11/19/17 0000 Signed Impressions: Service Date/Time: Sunday, November 19, 2017 01:54 - CONCLUSION: Mild degenerative changes right hip without fracture. Odell Pritchett MD Objective Remarks General: Elderly female in no acute distress. Heart: Regular rate and rhythm. No murmur. Lungs: Mild bibasilar crackles. Breathing is nonlabored. Abdomen: Soft, nontender, nondistended. Extremities: 2+ bilateral lower extremity edema, right greater than left. Psych: Alert, answers questions appropriately. Procedures 11/19/17 right radial arterial catheter placement 11/19/17 right internal jugular central line placement Urinary Catheter: No Vascular Central Line Catheter: No A/P Assessment and Plan 1. Septic shock: Sepsis is secondary to cellulitis, possible underlying pneumonia. Appreciate infectious disease recommendations. Continue vancomycin. Azithromycin, meropenem discontinued. Cultures are negative. Continue to taper steroids. 2. Hypotension: Improved. Continue Midodrine. Tahir-Synephrine drip discontinued. 3. Type II non-ST elevation [place]: Secondary to sepsis, diastolic heart failure. Appreciate cardiology recommendations. Continue heparin drip. Eliquis on hold. 4. Chronic diastolic congestive heart failure: Continue diuresis with Lasix. 5. Acute kidney injury superimposed on chronic kidney disease: Likely worsened secondary to diuresis, Vancomycin. Monitor BUN and creatinine. Monitor intake/ output. Labs are pending today. 6. Acute metabolic encephalopathy: Improved. 7. History of lung cancer, status post left lower lobectomy 8. COPD: Continue DuoNeb scheduled, albuterol neb as needed. Continue supplemental oxygen. 9. Psoriatic arthritis: Methotrexate on hold. 10. Hypothyroidism: Continue Synthroid. 11. Atrial fibrillation with RVR: Chronic anticoagulation with Eliquis. Now on heparin drip. Appreciate cardiology recommendations. Continue amiodarone, diltiazem. Will discuss with cardiology the timing of switch from heparin back to Eliquis. 12. GI prophylaxis: Famotidine. 13. DVT prophylaxis: Heparin drip. 14. Hypokalemia: Improved. Supplement potassium. 15. Confusion: Mental status is improved today. Head CT shows no acute changes. Discharge Planning Transfer to med/surg floor with telemetry when a bed is available. Zohaib Lamas MD Nov 27, 2017 08:08
[2017-11-27 08:37] LABS: HEMATOCRIT 46.6 % (35.0-46.0); HEMOGLOBIN 15.6 GM/DL (11.6-15.3); MEAN CORPUSCULAR HEMOGLOBIN 32.5 PG (27.0-34.0); MEAN CORPUSCULAR HGB CONC 33.5 % (32.0-36.0); MEAN PLATELET VOLUME 7.8 FL (7.0-11.0); PLATELET COUNT 226 TH/MM3 (150-450); RED BLOOD COUNT 4.81 MIL/MM3 (4.00-5.30); RED CELL DISTRIBUTION WIDTH 17.8 % (11.6-17.2); WHITE BLOOD COUNT 8.1 TH/MM3 (4.0-11.0)
[2017-11-27 08:52] LABS: BICARBONATE 28.6 MEQ/L (21.0-32.0); CALCIUM 9.8 MG/DL (8.5-10.1); CREATININE 1.42 MG/DL (0.50-1.00)
[2017-11-27 08:53] LABS: RANDOM VANCOMYCIN 15.9 COMMENT
[2017-11-27] MEDS: DOCUSATE SODIUM 50 MG/SENNA 8.6 MG TAB PO SCH ×2 (09:00→20:14)
[2017-11-27] MEDS: SODIUM CHLORIDE 0.9% FLUSH 10 ML FLUSH IV FLUSH SCH ×2 (09:10→20:14)
[2017-11-27] MEDS: AMIODARONE 200 MG TAB PO SCH (09:11)
[2017-11-27] MEDS: POTASSIUM CHLORIDE 10 MEQ CONTROLLED RELEASE TAB PO SCH (09:11)
[2017-11-27] MEDS: FUROSEMIDE 20 MG/2 ML VIAL IV PUSH SCH ×2 (09:11→17:34)
[2017-11-27] MEDS: CLOPIDOGREL 75 MG TAB PO SCH (09:12)
[2017-11-27] MEDS: NYSTATIN/TRIAMCINOLONE CREAM 15 GM TOPICAL SCH ×2 (09:12→20:15)
[2017-11-27] MEDS: FAMOTIDINE 20 MG TAB PO SCH ×2 (09:12→20:14)
[2017-11-27] MEDS ORDERED: VANCOMYCIN 1,500 MG/NS 500 ML IV ONE ×2 (12:00)
--- NOTE | 2017-11-27 12:43 | PD.CARD.PN ---
Subjective Subjective Remarks No events overnight Off vasopressors Amiodarone switched to oral No chest pain/SOB Less confused Objective Medications Current Medications Medications (Trade) Dose Ordered Sig/Juwan Route Start Time Stop Time Status Last Admin Pharmacy Profile Note 0 ml @ 0 mls/hr UNSCH OTHER 11/19/17 00:45 (NS Flush) 2 ml UNSCH PRN IV FLUSH 11/19/17 01:00 11/26/17 07:58 (NS Flush) 2 ml BID IV FLUSH 11/19/17 09:00 11/27/17 09:10 (Zofran Inj) 4 mg Q6H PRN IV PUSH 11/19/17 01:00 (Albuterol Neb) 2.5 mg Q2HR NEB PRN INH 11/19/17 01:00 Miscellaneous Information 1 Q361D XX 11/19/17 01:00 11/19/17 01:00 (Jennifer-Colace) 1 tab BID PO 11/19/17 09:00 11/25/17 09:10 (Milk Of Magnesia Liq) 30 ml Q12H PRN PO 11/19/17 01:00 (Senokot) 17.2 mg Q12H PRN PO 11/19/17 01:00 11/25/17 18:20 (Dulcolax Supp) 10 mg DAILY PRN RECTAL 11/19/17 01:00 11/25/17 18:20 (Lactulose Liq) 30 ml DAILY PRN PO 11/19/17 01:00 11/25/17 12:07 (Pepcid) 10 mg Q12HR PO 11/19/17 09:00 11/27/17 09:12 Heparin Sodium/ Dextrose 250 ml @ 10 mls/hr TITRATE PRN IV 11/19/17 05:00 11/27/17 07:43 (Mycolog Ii Cream) 1 applic Q12H TOPICAL 11/19/17 09:00 11/27/17 09:12 (Brethine Inj) 1 mg UNSCH PRN SQ 11/19/17 07:30 (Plavix) 75 mg DAILY PO 11/19/17 17:00 11/27/17 09:12 (Vistaril) 25 mg Q6HR PO 11/20/17 00:00 11/27/17 11:27 (Roxicodone) 5 mg Q4H PRN PO 11/20/17 13:00 11/26/17 09:16 Miscellaneous Information D/C ICU ELECTROLYTE ORDERS... UNSCH PRN .XX 11/20/17 13:15 Miscellaneous Information ICU - CALL ORDERING PHYSIC... UNSCH PRN .XX 11/20/17 13:15 Potassium Chloride 100 ml @ 25 mls/hr UNSCH PRN IV 11/20/17 13:15 11/24/17 15:19 (K-Lyte Cl Eff) 50 meq UNSCH PRN PO 11/20/17 13:15 11/20/17 13:23 Potassium Chloride 100 ml @ 50 mls/hr UNSCH PRN IV 11/20/17 13:15 Magnesium Sulfate 4 gm/Sodium Chloride 108 ml @ 54 mls/hr UNSCH PRN IV 11/20/17 13:15 Magnesium Sulfate 2 gm/Sodium Chloride 104 ml @ 52 mls/hr UNSCH PRN IV 11/20/17 13:15 (Mag-Ox) 800 mg UNSCH PRN PO 11/20/17 13:15 Sodium Phosphate 30 mmol/Sodium Chloride 260 ml @ 43.333 mls/ hr UNSCH PRN IV 11/20/17 13:15 (K-Phos) 2,000 mg UNSCH PRN PO 11/20/17 13:15 Potassium Phosphate 30 mmol/ Sodium Chloride 260 ml @ 43.333 mls/ hr UNSCH PRN IV 11/20/17 13:15 (Synthroid) 100 mcg DAILY@0600 PO 11/23/17 06:00 11/27/17 04:44 (Proamatine) 10 mg Q8H PO 11/22/17 11:15 11/27/17 11:27 (Lasix Inj) 20 mg BID@ IV PUSH 11/24/17 09:00 11/27/17 09:11 (Pill Splitter) 1 ea UNSCH PRN OTHER 11/24/17 21:15 (Cordarone) 200 mg DAILY PO 11/26/17 09:00 11/27/17 09:11 (Cardizem) 30 mg Q6HR PO 11/25/17 14:00 11/27/17 11:27 (KCl) 20 meq DAILY PO 11/26/17 09:00 11/27/17 09:11 (SoluCORTEF INJ) 25 mg Q12H IV PUSH 11/27/17 17:00 Vancomycin HCl 1500 mg/Sodium Chloride 515 ml @ 257.5 mls/ hr ONCE ONCE IV 11/27/17 12:00 11/27/17 13:59 11/27/17 11:45 Vital Signs / I&O Vital Signs Date Time Temp Pulse Resp B/P (MAP) Pulse Ox O2 Delivery O2 Flow Rate FiO2 11/27/17 09:53 96 Nasal Cannula 3.00 11/27/17 08:00 100 Nasal Cannula 2.00 11/27/17 08:00 63 11/27/17 08:00 96.8 63 13 117/61 (79) 100 11/27/17 04:00 70 11/27/17 04:00 97.8 70 15 109/63 (78) 97 11/27/17 04:00 97 Nasal Cannula 2.00 11/27/17 00:00 94 11/27/17 00:00 92 Nasal Cannula 2.00 11/27/17 00:00 97.8 94 18 126/67 (86) 92 11/26/17 21:17 92 Nasal Cannula 4.00 11/26/17 20:00 94 Nasal Cannula 2.00 11/26/17 20:00 93 11/26/17 20:00 97.5 93 21 116/62 (80) 94 11/26/17 16:00 64 11/26/17 16:00 97.7 64 13 97/56 (70) 98 11/26/17 16:00 98 Nasal Cannula 2.00 I/O 11/26/17 11/26/17 11/26/17 11/27/17 11/27/17 11/27/17 07:00 15:00 23:00 07:00 15:00 23:00 Intake Total 100 ml 858 ml 150 ml 31.4 ml Output Total 750 ml Balance 100 ml 108 ml 150 ml 31.4 ml Intake Oral 100 ml 708 ml 150 ml IV Total 150 ml 31.4 ml Output Urine Total 750 ml # Voids 2 3 # Bowel Movements 2 1 0 Physical Exam GENERAL: NAD SKIN: Warm and dry. HEAD: Atraumatic. Normocephalic. EYES: Pupils equal and round. No scleral icterus. No injection or drainage. ENT: No nasal bleeding or discharge. Mucous membranes pink and moist. NECK: Trachea midline. No JVD. CARDIOVASCULAR: Irregularly irregular RESPIRATORY: No accessory muscle use. Scattered rhonchi GASTROINTESTINAL: Abdomen soft, non-tender, nondistended. Hepatic and splenic margins not palpable. MUSCULOSKELETAL: Extremities without clubbing, cyanosis, or edema. No obvious deformities. NEUROLOGICAL: Awake and alert. No obvious cranial nerve deficits. Motor grossly within normal limits. Five out of 5 muscle strength in the arms and legs. Normal speech. PSYCHIATRIC: Appropriate mood and affect; insight and judgment normal. Laboratory Laboratory Tests Test 11/27/17 00:13 11/27/17 07:10 11/27/17 07:58 Activated Partial Thromboplast Time 47.1 SEC 52.8 SEC White Blood Count 8.1 TH/MM3 Red Blood Count 4.81 MIL/MM3 Hemoglobin 15.6 GM/DL Hematocrit 46.6 % Mean Corpuscular Volume 97.0 FL Mean Corpuscular Hemoglobin 32.5 PG Mean Corpuscular Hemoglobin Concent 33.5 % Red Cell Distribution Width 17.8 % Platelet Count 226 TH/MM3 Mean Platelet Volume 7.8 FL Hematology Comments Blood Urea Nitrogen 28 MG/DL Creatinine 1.42 MG/DL Random Glucose 90 MG/DL Calcium Level 9.8 MG/DL Sodium Level 139 MEQ/L Potassium Level 3.9 MEQ/L Chloride Level 104 MEQ/L Carbon Dioxide Level 28.6 MEQ/L Anion Gap 6 MEQ/L Estimat Glomerular Filtration Rate 35 ML/MIN Random Vancomycin Level 15.9 COMMENT Assessment and Plan Problem List: (1) Sepsis ICD Codes: A41.9 - Sepsis, unspecified organism Status: Acute (2) Pneumonia ICD Codes: J18.9 - Pneumonia, unspecified organism Status: Acute (3) Non-ST elevation [place] (NSTEMI) ICD Codes: I21.4 - Non-ST elevation (NSTEMI) myocardial infarction Status: Acute (4) Acute diastolic (congestive) heart failure ICD Codes: I50.31 - Acute diastolic (congestive) heart failure (5) CKD (chronic kidney disease) stage 3, GFR 30-59 ml/min ICD Codes: N18.3 - Chronic kidney disease, stage 3 (moderate) Assessment and Plan 1) Sepsis/PNA/cellulitis Anti-biotics per ID 2) NSTEMI Most likely type 2 Discussed consideration of ischemic evaluation with cardiac catheterization or stress testing, but patient does not want further evaluation Con't medical management 3) Afib Plan to change to Eliquis Plan to wean off Amiodarone, currently on Cardizem Attempt to wean off Amiodarone, can stop in 1 week Afib with RVR most likely secondary to overall illness 4) EF 65-70% Problem Qualifiers (1) Sepsis: Qualified Codes: A41.9 - Sepsis, unspecified organism (2) Pneumonia: Sonny Li DO Nov 27, 2017 12:43
[2017-11-27] MEDS: APIXABAN 5 MG TABLET PO SCH (20:13)
[2017-11-28] VITALS (9 sets, daily range): BP systolic 105–124; BP diastolic 53–67; PULSE 48–75; RESP 14–20; TEMP 97.2–97.6; O2SAT 93–99
[2017-11-28] MEDS: hydrOXYzine PAMOATE 25 MG CAP PO SCH ×3 (00:12→12:19)
[2017-11-28] MEDS: DILTIAZEM HCL 30 MG TAB PO SCH ×3 (00:12→12:19)
[2017-11-28] MEDS: MIDODRINE 5 MG TAB PO SCH ×2 (02:15→12:18)
[2017-11-28] MEDS: HYDROCORTISONE SOD SUCCINATE 100 MG VIAL IV PUSH SCH (05:31)
[2017-11-28] MEDS: LEVOTHYROXINE SODIUM 100 MCG TAB PO SCH (05:31)
[2017-11-28 07:27] LABS: AUTOMATED NEUTROPHIL # 5.7 TH/MM3 (1.8-7.7); BASOPHIL % 0.2 % (0.0-2.0); EOSINOPHIL % 0.5 % (0.0-4.0); HEMATOCRIT 44.8 % (35.0-46.0); LYMPH % 11.2 % (9.0-44.0); LYMPHOCYTE # 0.8 TH/MM3 (1.0-4.8); MEAN CELL VOLUME 97.1 FL (80.0-100.0); MEAN CORPUSCULAR HEMOGLOBIN 32.5 PG (27.0-34.0); MEAN CORPUSCULAR HGB CONC 33.5 % (32.0-36.0); MEAN PLATELET VOLUME 7.9 FL (7.0-11.0); MONO % 6.9 % (0.0-8.0); MONOCYTE # 0.5 TH/MM3 (0-0.9); NEUT % 81.2 % (16.0-70.0); PLATELET COUNT 225 TH/MM3 (150-450); RED BLOOD COUNT 4.61 MIL/MM3 (4.00-5.30); RED CELL DISTRIBUTION WIDTH 17.7 % (11.6-17.2)
[2017-11-28] MEDS: FAMOTIDINE 20 MG TAB PO SCH (08:19)
[2017-11-28] MEDS: APIXABAN 5 MG TABLET PO SCH (08:21)
[2017-11-28] MEDS: DOCUSATE SODIUM 50 MG/SENNA 8.6 MG TAB PO SCH (08:21)
[2017-11-28] MEDS: POTASSIUM CHLORIDE 10 MEQ CONTROLLED RELEASE TAB PO SCH (08:21)
[2017-11-28] MEDS: SODIUM CHLORIDE 0.9% FLUSH 10 ML FLUSH IV FLUSH SCH (08:21)
[2017-11-28] MEDS: AMIODARONE 200 MG TAB PO SCH (08:21)
[2017-11-28] MEDS: CLOPIDOGREL 75 MG TAB PO SCH (08:21)
[2017-11-28] MEDS: FUROSEMIDE 20 MG/2 ML VIAL IV PUSH SCH (08:22)
[2017-11-28] MEDS: NYSTATIN/TRIAMCINOLONE CREAM 15 GM TOPICAL SCH (08:23)
[2017-11-28 09:00] LABS: BICARBONATE 30.4 MEQ/L (21.0-32.0); CALCIUM 9.4 MG/DL (8.5-10.1); CREATININE 1.32 MG/DL (0.50-1.00)
[2017-11-28] MEDS ORDERED: AMIO200T PO (11:22)
[2017-11-28] MEDS ORDERED: PLAV75TA29 PO (11:22)
--- NOTE | 2017-11-28 12:57 | PD.CARD.PN ---
Subjective Subjective Remarks No events overnight No chest pain/SOB Less confused Objective Medications Current Medications Medications (Trade) Dose Ordered Sig/Juwan Route Start Time Stop Time Status Last Admin Pharmacy Profile Note 0 ml @ 0 mls/hr UNSCH OTHER 11/19/17 00:45 (NS Flush) 2 ml UNSCH PRN IV FLUSH 11/19/17 01:00 11/26/17 07:58 (NS Flush) 2 ml BID IV FLUSH 11/19/17 09:00 11/28/17 08:21 (Zofran Inj) 4 mg Q6H PRN IV PUSH 11/19/17 01:00 (Albuterol Neb) 2.5 mg Q2HR NEB PRN INH 11/19/17 01:00 Miscellaneous Information 1 Q361D XX 11/19/17 01:00 11/19/17 01:00 (Jennifer-Colace) 1 tab BID PO 11/19/17 09:00 11/28/17 08:21 (Milk Of Magnesia Liq) 30 ml Q12H PRN PO 11/19/17 01:00 (Senokot) 17.2 mg Q12H PRN PO 11/19/17 01:00 11/25/17 18:20 (Dulcolax Supp) 10 mg DAILY PRN RECTAL 11/19/17 01:00 11/25/17 18:20 (Lactulose Liq) 30 ml DAILY PRN PO 11/19/17 01:00 11/25/17 12:07 (Pepcid) 10 mg Q12HR PO 11/19/17 09:00 11/28/17 08:19 (Mycolog Ii Cream) 1 applic Q12H TOPICAL 11/19/17 09:00 11/28/17 08:23 (Brethine Inj) 1 mg UNSCH PRN SQ 11/19/17 07:30 (Plavix) 75 mg DAILY PO 11/19/17 17:00 11/28/17 08:21 (Vistaril) 25 mg Q6HR PO 11/20/17 00:00 11/28/17 12:19 (Roxicodone) 5 mg Q4H PRN PO 11/20/17 13:00 11/28/17 01:57 (Synthroid) 100 mcg DAILY@0600 PO 11/23/17 06:00 11/28/17 05:31 (Proamatine) 10 mg Q8H PO 11/22/17 11:15 11/28/17 12:18 (Lasix Inj) 20 mg BID@18 IV PUSH 11/24/17 09:00 11/28/17 08:22 (Pill Splitter) 1 ea UNSCH PRN OTHER 11/24/17 21:15 (Cordarone) 200 mg DAILY PO 11/26/17 09:00 11/28/17 08:21 (Cardizem) 30 mg Q6HR PO 11/25/17 14:00 11/28/17 12:19 (KCl) 20 meq DAILY PO 11/26/17 09:00 11/28/17 08:21 (SoluCORTEF INJ) 25 mg Q12H IV PUSH 11/27/17 17:00 11/28/17 05:31 (Eliquis) 5 mg BID PO 11/27/17 21:00 11/28/17 08:21 Vital Signs / I&O Vital Signs Date Time Temp Pulse Resp B/P (MAP) Pulse Ox O2 Delivery O2 Flow Rate FiO2 11/28/17 12:02 63 11/28/17 12:00 97.3 62 20 115/53 (73) 99 11/28/17 08:00 Nasal Cannula 2.00 11/28/17 08:00 97.2 62 14 116/67 (83) 99 11/28/17 04:00 Nasal Cannula 2.00 11/28/17 04:00 97.4 48 20 105/55 (72) 96 11/28/17 03:56 62 11/28/17 00:30 Nasal Cannula 2.00 11/28/17 00:00 97.4 63 20 124/62 (82) 93 11/28/17 00:00 Nasal Cannula 2.00 11/27/17 23:49 63 11/27/17 22:00 97.4 72 20 116/57 (76) 95 11/27/17 21:55 63 11/27/17 20:50 96 Nasal Cannula 2.00 11/27/17 20:00 97 Nasal Cannula 2.00 11/27/17 20:00 97.6 63 17 104/57 (73) 97 11/27/17 20:00 63 11/27/17 16:00 47 11/27/17 16:00 97.2 47 16 128/57 (80) 92 11/27/17 16:00 92 Nasal Cannula 2.00 I/O 11/27/17 11/27/17 11/27/17 11/28/17 11/28/17 11/28/17 07:00 15:00 23:00 07:00 15:00 23:00 Intake Total 150 ml 31.4 ml 849.3 ml 240 ml Output Total 750 ml 400 ml Balance 150 ml 31.4 ml 99.3 ml -160 ml Intake Oral 150 ml 236 ml 240 ml IV Total 31.4 ml 613.3 ml Output Urine Total 750 ml 400 ml # Voids 3 2 # Bowel Movements 0 0 Physical Exam GENERAL: NAD SKIN: Warm and dry. HEAD: Atraumatic. Normocephalic. EYES: Pupils equal and round. No scleral icterus. No injection or drainage. ENT: No nasal bleeding or discharge. Mucous membranes pink and moist. NECK: Trachea midline. No JVD. CARDIOVASCULAR: Irregularly irregular RESPIRATORY: No accessory muscle use. Scattered rhonchi GASTROINTESTINAL: Abdomen soft, non-tender, nondistended. Hepatic and splenic margins not palpable. MUSCULOSKELETAL: Extremities without clubbing, cyanosis, or edema. No obvious deformities. NEUROLOGICAL: Awake and alert. No obvious cranial nerve deficits. Motor grossly within normal limits. Five out of 5 muscle strength in the arms and legs. Normal speech. PSYCHIATRIC: Appropriate mood and affect; insight and judgment normal. Laboratory Laboratory Tests Test 11/28/17 06:21 White Blood Count 7.0 TH/MM3 Red Blood Count 4.61 MIL/MM3 Hemoglobin 15.0 GM/DL Hematocrit 44.8 % Mean Corpuscular Volume 97.1 FL Mean Corpuscular Hemoglobin 32.5 PG Mean Corpuscular Hemoglobin Concent 33.5 % Red Cell Distribution Width 17.7 % Platelet Count 225 TH/MM3 Mean Platelet Volume 7.9 FL Neutrophils (%) (Auto) 81.2 % Lymphocytes (%) (Auto) 11.2 % Monocytes (%) (Auto) 6.9 % Eosinophils (%) (Auto) 0.5 % Basophils (%) (Auto) 0.2 % Neutrophils # (Auto) 5.7 TH/MM3 Lymphocytes # (Auto) 0.8 TH/MM3 Monocytes # (Auto) 0.5 TH/MM3 Eosinophils # (Auto) 0.0 TH/MM3 Basophils # (Auto) 0.0 TH/MM3 CBC Comment DIFF FINAL Differential Comment Blood Urea Nitrogen 26 MG/DL Creatinine 1.32 MG/DL Random Glucose 84 MG/DL Calcium Level 9.4 MG/DL Sodium Level 139 MEQ/L Potassium Level 3.5 MEQ/L Chloride Level 104 MEQ/L Carbon Dioxide Level 30.4 MEQ/L Anion Gap 5 MEQ/L Estimat Glomerular Filtration Rate 38 ML/MIN Assessment and Plan Problem List: (1) Sepsis ICD Codes: A41.9 - Sepsis, unspecified organism Status: Acute (2) Pneumonia ICD Codes: J18.9 - Pneumonia, unspecified organism Status: Acute (3) Non-ST elevation SD (NSTEMI) ICD Codes: I21.4 - Non-ST elevation (NSTEMI) myocardial infarction Status: Acute (4) Acute diastolic (congestive) heart failure ICD Codes: I50.31 - Acute diastolic (congestive) heart failure (5) CKD (chronic kidney disease) stage 3, GFR 30-59 ml/min ICD Codes: N18.3 - Chronic kidney disease, stage 3 (moderate) Assessment and Plan 1) Sepsis/PNA/cellulitis Anti-biotics per ID 2) NSTEMI Most likely type 2 Discussed consideration of ischemic evaluation with cardiac catheterization or stress testing, but patient does not want further evaluation Con't medical management Agree with Plavix as questionable NSAID allergy that the patient is unsure of , and NSTEMI 3) Afib Eliquis, ok with Plavix Plan to wean off Amiodarone, currently on Cardizem Attempt to wean off Amiodarone, can stop in 1 week Afib with RVR most likely secondary to overall illness 4) EF 65-70% 5) Follow up with Dr. Massey on discharge Problem Qualifiers (1) Sepsis: Qualified Codes: A41.9 - Sepsis, unspecified organism (2) Pneumonia: Sonny Li DO Nov 28, 2017 12:57
--- NOTE | 2017-11-28 14:46 | HHI.IDPN ---
Subjective Subjective Remarks no fever doing good on NC O2 Antibiotics vancomycin Allergies: Coded Allergies: Sulfa (Sulfonamide Antibiotics) (Verified Allergy, Severe, Hives, 11/18/17) bacitracin (Verified Allergy, Severe, RASH-PT DOESN'T REMEMBER, 11/18/17) diatrizoate meglumine (Verified Allergy, Severe, HIVES, 11/18/17) gadobenic acid (Verified Allergy, Severe, HIVES, 11/18/17) gadodiamide (Verified Allergy, Severe, HIVES, 11/18/17) gadoteridol (Verified Allergy, Severe, HIVES, 11/18/17) gramicidin D (Verified Allergy, Severe, RASH, 11/18/17) iodixanol (Verified Allergy, Severe, HIVES, 11/18/17) iohexol (Verified Allergy, Severe, HIVES, 11/18/17) neomycin (Verified Allergy, Severe, RASH, 11/18/17) penicillin G (Verified Allergy, Severe, RASH HIVES, 11/18/17) polymyxin B (Verified Allergy, Severe, RASH, 11/18/17) NSAIDS (Non-Steroidal Anti-Inflamma (Verified Adverse Reaction, Severe, R/ T HIATAL HERNIA, 11/18/17) Objective . Vital Signs Date Time Temp Pulse Resp B/P (MAP) Pulse Ox O2 Delivery O2 Flow Rate FiO2 11/28/17 14:00 99 Nasal Cannula 2.00 11/28/17 12:02 63 11/28/17 12:00 97.3 62 20 115/53 (73) 99 11/28/17 08:00 Nasal Cannula 2.00 11/28/17 08:00 97.2 62 14 116/67 (83) 99 11/28/17 04:00 Nasal Cannula 2.00 11/28/17 04:00 97.4 48 20 105/55 (72) 96 11/28/17 03:56 62 11/28/17 00:30 Nasal Cannula 2.00 11/28/17 00:00 97.4 63 20 124/62 (82) 93 11/28/17 00:00 Nasal Cannula 2.00 11/27/17 23:49 63 11/27/17 22:00 97.4 72 20 116/57 (76) 95 11/27/17 21:55 63 11/27/17 20:50 96 Nasal Cannula 2.00 11/27/17 20:00 97 Nasal Cannula 2.00 11/27/17 20:00 97.6 63 17 104/57 (73) 97 11/27/17 20:00 63 11/27/17 16:00 47 11/27/17 16:00 97.2 47 16 128/57 (80) 92 11/27/17 16:00 92 Nasal Cannula 2.00 . Laboratory Tests Test 11/27/17 07:58 11/28/17 06:21 White Blood Count 8.1 TH/MM3 7.0 TH/MM3 Red Blood Count 4.81 MIL/MM3 4.61 MIL/MM3 Hemoglobin 15.6 GM/DL 15.0 GM/DL Hematocrit 46.6 % 44.8 % Mean Corpuscular Volume 97.0 FL 97.1 FL Mean Corpuscular Hemoglobin 32.5 PG 32.5 PG Mean Corpuscular Hemoglobin Concent 33.5 % 33.5 % Red Cell Distribution Width 17.8 % 17.7 % Platelet Count 226 TH/MM3 225 TH/MM3 Mean Platelet Volume 7.8 FL 7.9 FL Hematology Comments Neutrophils (%) (Auto) 81.2 % Lymphocytes (%) (Auto) 11.2 % Monocytes (%) (Auto) 6.9 % Eosinophils (%) (Auto) 0.5 % Basophils (%) (Auto) 0.2 % Neutrophils # (Auto) 5.7 TH/MM3 Lymphocytes # (Auto) 0.8 TH/MM3 Monocytes # (Auto) 0.5 TH/MM3 Eosinophils # (Auto) 0.0 TH/MM3 Basophils # (Auto) 0.0 TH/MM3 CBC Comment DIFF FINAL Differential Comment Laboratory Tests Test 11/27/17 07:58 11/28/17 06:21 Blood Urea Nitrogen 28 MG/DL 26 MG/DL Creatinine 1.42 MG/DL 1.32 MG/DL Random Glucose 90 MG/DL 84 MG/DL Calcium Level 9.8 MG/DL 9.4 MG/DL Sodium Level 139 MEQ/L 139 MEQ/L Potassium Level 3.9 MEQ/L 3.5 MEQ/L Chloride Level 104 MEQ/L 104 MEQ/L Carbon Dioxide Level 28.6 MEQ/L 30.4 MEQ/L Anion Gap 6 MEQ/L 5 MEQ/L Estimat Glomerular Filtration Rate 35 ML/MIN 38 ML/MIN Imaging Last Impressions Head CT 11/25/17 0000 Signed Impressions: Service Date/Time: Saturday, November 25, 2017 15:28 - CONCLUSION: No acute intracranial abnormality demonstrated. Jaycob Heredia MD Chest X-Ray 11/25/17 0000 Signed Impressions: Service Date/Time: Saturday, November 25, 2017 08:45 - CONCLUSION: 1. Cardiomegaly with pulmonary vascular congestion. 2. Developing very small bilateral pleural effusions with associated airspace disease at the lung bases, presumably atelectasis. Santos Garduno MD Lower Extremity Ultrasound 11/19/17 0000 Signed Impressions: Service Date/Time: Sunday, November 19, 2017 09:37 - CONCLUSION: Normal examination. Jaycob Adorno MD Lower Extremity CT 11/19/17 0000 Signed Impressions: Service Date/Time: Sunday, November 19, 2017 01:54 - CONCLUSION: Mild degenerative changes right hip without fracture. Odell Pritchett MD Physical Exam CONSTITUTIONAL/GENERAL: This is an adequately nourished patient, in no apparent distress. TUBES/LINES/DRAINS: SKIN: No jaundice, rashes, or lesions. Ecchymoses on upper extremities. Skin temperature appropriate. Not diaphoretic. CARDIOVASCULAR: Regular rate and rhythm without murmurs, gallops, or rubs. No JVD. Peripheral pulses symmetric. RESPIRATORY/CHEST: Symmetric, unlabored respirations. Clear to auscultation. Breath sounds equal bilaterally. No wheezes, rales, or rhonchi. GASTROINTESTINAL: Abdomen soft, non-tender, nondistended. No hepato-splenomegaly , or palpable masses. No guarding. Bowel sounds present. GENITOURINARY: Without palpable bladder distension. Saeed catheter in place with MUSCULOSKELETAL: Extremities without clubbing, cyanosis, soft 2-3 + edema' + very mild resuidual erythma NEUROLOGICAL: fully awake and alert . Motor and sensory grossly within normal limits. Follows commands. Clear speech. Moves all extremities. PSYCHIATRIC: No obvious anxiety/depression. no apparent hallucinations or other psychotic thought process. Assessment & Plan Remarks Sespsis - improved Hemodyna,mically unstable Pulmonary edema ? underlying PNA RLE cellulitis - improving Diarrhea Allergic PCN: per pt - hives, Keflex - unknown stop meropenem (done) OK to change vanco up to po doxycycline 100 bid PO to complete few more days of tx OK to dc Karine Santa MD Nov 28, 2017 14:46
[2017-11-28] MEDS ORDERED: VIBR50SY PO (15:19)
--- NOTE | 2017-11-29 14:55 | HHI.DS ---
Discharge Summary Admission Date Nov 18, 2017 at 23:07 Discharge Date: Nov 28, 2017 Admitting Diagnosis Sepsis, Pneumonia, Elevated troponin (1) Acute diastolic (congestive) heart failure ICD Code: I50.31 - Acute diastolic (congestive) heart failure (2) CKD (chronic kidney disease) stage 3, GFR 30-59 ml/min ICD Code: N18.3 - Chronic kidney disease, stage 3 (moderate) (3) History of lung cancer ICD Code: Z85.118 - Personal history of other malignant neoplasm of bronchus and lung Status: Chronic (4) Arthritis with psoriasis ICD Code: L40.50 - Arthropathic psoriasis, unspecified Status: Chronic (5) Atrial fibrillation with rapid ventricular response ICD Code: I48.91 - Unspecified atrial fibrillation Status: Resolved (6) Non-ST elevation FL (NSTEMI) ICD Code: I21.4 - Non-ST elevation (NSTEMI) myocardial infarction Status: Acute Procedures 11/19/17 right radial arterial catheter placement 11/19/17 right internal jugular central line placement Brief History - From Admission 82-year-old female with past medical history of lung cancer, atrial fibrillation on chronic anticoagulation with Eliquis, chronic diastolic heart failure, hypothyroidism, rheumatoid arthritis on methotrexate, who presents from [facility]. She states that for the last 3 nights she has experienced chills and rigors. She has had some sore throat, dry nonproductive cough, and shortness of breath x3 days. Denies chest pain, dysuria or flank pain. She has cellulitis of right hip/buttocks area on exam. She had anorexia for a couple of days but no vomiting, abdominal discomfort or diarrhea. CBC/BMP: 11/28/17 0621 11/28/17 0621 Significant Findings Laboratory Tests Test 11/27/17 00:13 11/27/17 07:10 11/27/17 07:58 11/28/17 06:21 Activated Partial Thromboplast Time 47.1 SEC (24.3-30.1) 52.8 SEC (24.3-30.1) Hemoglobin 15.6 GM/DL (11.6-15.3) Hematocrit 46.6 % (35.0-46.0) Red Cell Distribution Width 17.8 % (11.6-17.2) 17.7 % (11.6-17.2) Blood Urea Nitrogen 28 MG/DL (7-18) 26 MG/DL (7-18) Creatinine 1.42 MG/DL (0.50-1.00) 1.32 MG/DL (0.50-1.00) Estimat Glomerular Filtration Rate 35 ML/MIN (>89) 38 ML/MIN (>89) Neutrophils (%) (Auto) 81.2 % (16.0-70.0) Lymphocytes # (Auto) 0.8 TH/MM3 (1.0-4.8) PE at Discharge General: Elderly female in no acute distress. Heart: Regular rate and rhythm. No murmur. Lungs: Mild bibasilar crackles. Breathing is nonlabored. Abdomen: Soft, nontender, nondistended. Extremities: 2+ bilateral lower extremity edema, right greater than left. Psych: Alert, answers questions appropriately. Hospital Course 82 years old female admitted with septic shock: Sepsis is secondary to cellulitis, possible underlying pneumonia. Appreciate infectious disease recommendations. Status post vancomycin. Azithromycin, meropenem discontinued. Cultures are negative. Continue to taper steroids. She had hypotension: Improved. Continue Midodrine. Tahir-Synephrine drip discontinued. Patient had type II non-ST elevation FL: Secondary to sepsis, diastolic heart failure. Etiology consulted patient placed on heparin drip switched Eliquis Regarding chronic diastolic congestive heart failure: Continue diuresis with Lasix. Regarding acute kidney injury superimposed on chronic kidney disease: Likely worsened secondary to diuresis, Vancomycin. Monitor BUN and creatinine. Monitor intake/output. Labs are pending today. Regards acute metabolic encephalopathy: Improved. On day of discharge discussed with ID who recommended doxycycline 100 mg twice daily for 10-14 days, Patient back on clopidogrel and Eliquis I discussed with cardiology he confirmed double anticoagulation regimen, continue Cardizem Lasix. [id number] encounter performed with the patient on discharge day, as well as physical exam, summary of hospitalization course and postdischarge plan has been D/W the patient. 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 Discharge medications reviewed and printed and signed, post discharge follow up visit with PCP and other specialist as well as Brief hospital course and discharge summary has been placed. Pt Condition on Discharge: Fair Discharge Disposition: Discharge to SNF Discharge Time: > 30 minutes Discharge Instructions DIET: Follow Instructions for: Heart Healthy Diet Activities you can perform: Weight Bearing as Aram Follow up Referrals: SNF/[facility] with [facility] New Medications: Doxycycline Calcium Liq (Vibramycin Liq) 50 Mg/5 Ml Syrp 100 MG PO BID for Infection, #10 ML 0 Refills Amiodarone (Amiodarone) 200 Mg Tab 200 MG PO DAILY for afib, #7 TAB Clopidogrel (Plavix) 75 Mg Tab 75 MG PO DAILY for ., #30 TAB Continued Medications: Apixaban (Eliquis) 5 Mg Tab 5 MG PO BID for Blood Clot Prevention, #60 TAB 0 Refills Denosumab Inj (Prolia Inj) 60 Mg/Ml Inj 60 MG SQ Q180D, #1 VIAL 0 Refills Diltiazem CD 24 HR (Cardizem CD 24 HR) 180 Mg Caper 180 MG PO DAILY for Regulate Heart Beat, #30 CAP Furosemide (Furosemide) 40 Mg Tab 40 MG PO BID, #60 TAB 0 Refills Ipratropium-Albuterol Neb (Duoneb) 0.5-2.5 Mg/3 Ml Neb 1 NEBULE INH Q6HR NEB for Breathing Treatment, #120 NEBULE 0 Refills Levothyroxine (Synthroid) 75 Mcg Tab 75 MCG PO DAILY for Thyroid, #30 TAB 0 Refills Methotrexate (Methotrexate) 2.5 Mg Tab 2.5 MG PO Q7D, TAB 0 Refills Yovani Drake MD Nov 29, 2017 14:55
== END 2017-11-28 17:01 | DRG 871 ==
LOC: NEPC 19:20 → NEDA 23:07 → HIME 11-19 02:05 → N04A 11-27 21:34
PROVIDERS: ADMIT Hospitalist; ATTEND Hospitalist
PROC: 03HY32Z Insertion of Monitoring Device into Upper Artery, Percutaneous Approach (ICD-10-PCS; principal; 2017-11-19)
PROC: 02HV33Z Insertion of Infusion Device into Superior Vena Cava, Percutaneous Approach (ICD-10-PCS; 2017-11-19)
DX: A41.9 Sepsis, unspecified organism (principal); J18.9 Pneumonia, unspecified organism; I21.A1 Myocardial infarction type 2; R65.21 Severe sepsis with septic shock; G93.41 Metabolic encephalopathy; N17.9 Acute kidney failure, unspecified; I50.33 Acute on chronic diastolic (congestive) heart failure; N18.3 Chronic kidney disease, stage 3 (moderate); J44.0 Chronic obstructive pulmonary disease with (acute) lower respiratory infection; L03.115 Cellulitis of right lower limb; Z68.42 Body mass index [BMI] 45.0-49.9, adult; E87.2 Acidosis; I48.91 Unspecified atrial fibrillation; L40.50 Arthropathic psoriasis, unspecified; I73.9 Peripheral vascular disease, unspecified; M06.9 Rheumatoid arthritis, unspecified; E66.9 Obesity, unspecified; M54.2 Cervicalgia; M19.90 Unspecified osteoarthritis, unspecified site; G89.29 Other chronic pain; R00.0 Tachycardia, unspecified; F41.9 Anxiety disorder, unspecified; F32.9 Major depressive disorder, single episode, unspecified; E78.00 Pure hypercholesterolemia, unspecified; H91.90 Unspecified hearing loss, unspecified ear; K21.9 Gastro-esophageal reflux disease without esophagitis; E89.0 Postprocedural hypothyroidism; R19.7 Diarrhea, unspecified; H54.61 Unqualified visual loss, right eye, normal vision left eye; T50.2X5A Adverse effect of carbonic-anhydrase inhibitors, benzothiadiazides and other diuretics, initial encounter; E87.6 Hypokalemia; Z79.899 Other long term (current) drug therapy; Z90.2 Acquired absence of lung [part of]; Z85.828 Personal history of other malignant neoplasm of skin; I25.2 Old myocardial infarction; Z86.73 Personal history of transient ischemic attack (TIA), and cerebral infarction without residual deficits; Z87.891 Personal history of nicotine dependence; Z79.01 Long term (current) use of anticoagulants; Z88.0 Allergy status to penicillin; Z85.118 Personal history of other malignant neoplasm of bronchus and lung
CPT/HCPCS: 36556; 51702; 70450; 71045; 73700; 76937; 80048; 80053; 80202; 81001; 82533; 82550; 82552; 82805; 83605; 83735; 83880; 84100; 84132; 84443; 84484; 85007; 85025; 85027; 85610; 85730; 87040; 87070; 87086; 87205; 87449; 87493; 87641; 87804; 93005; 93308; 93970; 94150; 94640; 94664; 96361; 96365; 96368; 96375; J0282; J0456; J1644; J1720; J1940; J2185; J2370; J3370; J3475; J3480; J7030; J7040; J7050; J7060; J7120; P9047; Q0177

== ENCOUNTER 2017-12-06 14:14 | Emergency (ER) | payer MEDICARE, BC ==
[~2017-12-06 14:14] MED LIST changes: +AMIO200T PO; +FURO40TA PO; +IPRASOL INH; +PLAV75TA29 PO; -TORS1TAB12 PO; +VIBR50SY PO; +VIST25CA PO
[2017-12-06] MEDS ORDERED: SODIUM CHLORIDE 0.9% FLUSH 10 ML FLUSH IV FLUSH PRN (14:30)
[2017-12-06] MEDS ORDERED: SODIUM CHLOR 0.9% 250 ML INJ 250 ML IV ONE (14:30)
[2017-12-06 14:33] VITALS: BP 105/59; PULSE 66; RESP 18; TEMP 98.3; O2SAT 96
[2017-12-06 14:37] VITALS: BP 105/59; PULSE 62; PULSE 64; RESP 18; TEMP 98.3; O2SAT 95; O2SAT 96
--- NOTE | 2017-12-06 14:38 | PD ---
HPI Chief Complaint: Skin wounds Time Seen by Provider: 14:19 Travel History International Travel<30 days: No Contact w/Intl Traveler<30days: No Traveled to known affect area: No History of Present Illness HPI The patient is a 82-year-old female who presents to the emergency department via EMS from the half-way for evaluation of skin wounds. The patient was recently in the hospital and discharged him 1 week ago. The half-way noted that the patient has had intermittent episodes of hypotension as well as chronic skin wounds that are under the abdominal pannus and under the breast bilaterally. EMS states they have been treating the rash as antifungal, however, they do note it is enlarging. He also states the patient has had some intermittent episodes of low blood pressures, was placed on medications for low blood pressures at the half-way and previous hospitalization. The patient does complain of discomfort over the abraded areas under the abdominal pannus and under the breasts. She denies any chest pain or shortness of breath. EMS also noted that they stop the patient's diuretics because of low blood pressure, but she had increase in edema to lower extremities. They do note the patient has an active DNR. The patient denies any headache, chest pain, shortness of breath, nausea, vomiting, or abdominal pain. PFSH Past Medical History Arthritis: Yes Asthma: No Autoimmune Disease: No Anxiety: Yes ("MENTAL BREAKDOWN") Depression: Yes Heart Rhythm Problems: Yes Cancer: Yes (LUNG CA, SKIN CA) Cardiovascular Problems: Yes (HEART FAILURE, HEART MURMUR, A. FIB, PVD, CHF, NM (2016)) High Cholesterol: Yes Chemotherapy: No Chest Pain: No Congestive Heart Failure: Yes COPD: Yes Cerebrovascular Accident: No Diabetes: No Diminished Hearing: Yes (QUINAULT) Endocrine: Yes (HYPOTHYROIDISM) Gastrointestinal Disorders: Yes (GERD) GERD: Yes Genitourinary: No Headaches: Yes Hepatitis: No Hiatal Hernia: Yes Immune Disorder: No Kidney Stones: No Musculoskeletal: Yes (PSORIATIC/RHEUMATOID/OSTEOARTHRITIS, LOW BACK PAIN & FRACTURES) Neurologic: Yes (TIA, NEUROPATHY (R/T ARTHRTIS)) Psychiatric: Yes Reproductive: No Respiratory: Yes (LUNG CA; LOBECTOMY L LUNG, COPD) Migraines: Yes (NOT SINCE LOOSING SIGHT IN RT EYE) Radiation Therapy: No Renal Failure: No Seizures: No Sickle Cell Disease: No Sleep Apnea: No Thyroid Disease: Yes (HYPOTHYROIDISM) Ulcer: No Past Surgical History Abdominal Surgery: No AICD: No Body Medical Devices: DERRELL IN RIGHT LEG Cardiac Surgery: No Ear Surgery: No Endocrine Surgery: Yes (THYROIDECTOMY) Eye Surgery: Yes (CATARACT) Genitourinary Surgery: No Gynecologic Surgery: Yes (HYSTERECTOMY) Hysterectomy: Yes Joint Replacement: No Oral Surgery: No Pacemaker: No Thoracic Surgery: Yes (LOBECTOMY L LUNG CA) Other Surgery: Yes (SKIN CANCER REMOVAL) Social History Alcohol Use: No Tobacco Use: No Substance Use: No Allergies-Medications (Allergen,Severity, Reaction): Coded Allergies: Sulfa (Sulfonamide Antibiotics) (Verified Allergy, Severe, Hives, 11/18/17) bacitracin (Verified Allergy, Severe, RASH-PT DOESN'T REMEMBER, 11/18/17) diatrizoate meglumine (Verified Allergy, Severe, HIVES, 11/18/17) gadobenic acid (Verified Allergy, Severe, HIVES, 11/18/17) gadodiamide (Verified Allergy, Severe, HIVES, 11/18/17) gadoteridol (Verified Allergy, Severe, HIVES, 11/18/17) gramicidin D (Verified Allergy, Severe, RASH, 11/18/17) iodixanol (Verified Allergy, Severe, HIVES, 11/18/17) iohexol (Verified Allergy, Severe, HIVES, 11/18/17) neomycin (Verified Allergy, Severe, RASH, 11/18/17) penicillin G (Verified Allergy, Severe, RASH HIVES, 11/18/17) polymyxin B (Verified Allergy, Severe, RASH, 11/18/17) NSAIDS (Non-Steroidal Anti-Inflamma (Verified Adverse Reaction, Severe, R/ T HIATAL HERNIA, 11/18/17) Reported Meds & Prescriptions Reported Meds & Active Scripts Active Vibramycin Liq (Doxycycline Calcium) 50 Mg/5 Ml Syrp 100 Mg PO BID Amiodarone (Amiodarone HCl) 200 Mg Tab 200 Mg PO DAILY Plavix (Clopidogrel Bisulfate) 75 Mg Tab 75 Mg PO DAILY Cardizem CD 24 HR (Diltiazem CD 24 HR) 180 Mg Caper 180 Mg PO DAILY Reported Duoneb (Ipratropium-Albuterol Neb) 0.5-2.5 Mg/3 Ml Neb 1 Nebule INH Q6HR NEB Furosemide 40 Mg Tab 40 Mg PO BID Vistaril (Hydroxyzine Pamoate) 25 Mg Cap 25 Mg PO Q6H PRN Ketorolac Opth Drops 0.5% Drops 1 Drop LEFT EYE QID 28 Days Pred Forte Opth 1% (Prednisolone Acetate Opth 1%) 1% Susp 1 Drop LEFT EYE QID 28 Days Vigamox Opth Drops (Moxifloxacin Opth Drops) 0.5 % Soln 1 Drop LEFT EYE QID Eliquis (Apixaban) 5 Mg Tab 5 Mg PO BID Prolia Inj (Denosumab) 60 Mg/Ml Inj 60 Mg SQ Q180D Methotrexate 2.5 Mg Tab 2.5 Mg PO Q7D Synthroid (Levothyroxine Sodium) 75 Mcg Tab 75 Mcg PO DAILY Review of Systems Except as stated in HPI: all other systems reviewed are Neg General / Constitutional: No: Fever Cardiovascular: No: Chest Pain or Discomfort Respiratory: No: Shortness of Breath Gastrointestinal: No: Nausea, Vomiting, Abdominal Pain Musculoskeletal: Positive: Pain (Pain where the excoriated skin areas are underlying the breast and abdominal pannus) Skin: Positive Other (As noted in the history of present illness) Physical Exam Narrative GENERAL: Awake, slightly lethargic 82-year-old female who appears her stated age and is in no acute respiratory distress. SKIN: Focused skin assessment warm/dry. Excoriated is slightly erythematous skin underlying the abdominal pannus in the breast bilaterally but no visible satellite lesions to suggest yeast. The affected areas are only located in areas that are underlying where skin is rubbing against skin. HEAD: Atraumatic. Normocephalic. Thick morales hair. EYES: Pupils equal and round. No scleral icterus. No injection or drainage. ENT: No nasal bleeding or discharge. Slightly dry mucous membranes. NECK: Trachea midline. No JVD. CARDIOVASCULAR: Regular rate and rhythm. No murmur appreciated. RESPIRATORY: No accessory muscle use. Clear to auscultation. Breath sounds equal bilaterally. GASTROINTESTINAL: Abdomen soft, obese, nontender to palpation. Back: No tenderness over the thoracic or lumbar vertebrae. No visible sacral decubitus ulcer. MUSCULOSKELETAL: No obvious deformities. No clubbing. No cyanosis. Bilateral lower extremity pitting edema. NEUROLOGICAL: Awake and alert. No obvious cranial nerve deficits. Motor grossly within normal limits. Normal speech. PSYCHIATRIC: Appropriate mood and affect; insight and judgment normal. Data Data Last Documented VS Vital Signs Date Time Temp Pulse Resp B/P (MAP) Pulse Ox O2 Delivery O2 Flow Rate FiO2 12/06/17 14:37 98.3 64 18 105/59 (74) 96 Room Air Orders Orders Complete Blood Count With Diff (12/06/17 14:28) Comprehensive Metabolic Panel (12/06/17 14:28) Creatine Kinase (Cpk) (12/06/17:28) Thyroid Stimulating Hormone (12/06/17:) Urinalysis - C+S If Indicated (12/06/17 14:) Lactic Acid Sepsis Protocol (12/06/17 14:) Blood Culture (12/06/17:) Chest, Single Ap (12/06/17:) Blood Glucose (12/06/17:28) Ecg Monitoring (12/06/17:) Iv Access Insert/Monitor (12/06/17:) Oximetry (12/06/17 14:28) Sodium Chloride 0.9% Flush (Ns Flush) (12/06/17 14:30) Sodium Chlor 0.9% 250 Ml Inj (Ns 250 Ml (12/06/17 14:30) Troponin I (12/06/17 15:15) Diphenhydramine Inj (Benadryl Inj) (12/06/17 15:30) Sodium Chlor 0.9% 1000 Ml Inj (Ns 1000 M (12/06/17 15:30) B-Type Natriuretic Peptide (12/06/17 15:43) Free Thyroxine (T4) (12/06/17 15:44) Free T3 (12/06/17 15:44) Urine Culture (12/06/17 16:05) Labs Laboratory Tests Test 12/06/17 14:50 12/06/17 16:05 White Blood Count 5.2 TH/MM3 Red Blood Count 4.10 MIL/MM3 Hemoglobin 13.2 GM/DL Hematocrit 39.7 % Mean Corpuscular Volume 96.7 FL Mean Corpuscular Hemoglobin 32.2 PG Mean Corpuscular Hemoglobin Concent 33.3 % Red Cell Distribution Width 16.9 % Platelet Count 154 TH/MM3 Mean Platelet Volume 8.6 FL Neutrophils (%) (Auto) 72.5 % Lymphocytes (%) (Auto) 16.7 % Monocytes (%) (Auto) 7.2 % Eosinophils (%) (Auto) 3.1 % Basophils (%) (Auto) 0.5 % Neutrophils # (Auto) 3.8 TH/MM3 Lymphocytes # (Auto) 0.9 TH/MM3 Monocytes # (Auto) 0.4 TH/MM3 Eosinophils # (Auto) 0.2 TH/MM3 Basophils # (Auto) 0.0 TH/MM3 CBC Comment DIFF FINAL Differential Comment Blood Urea Nitrogen 25 MG/DL Creatinine 1.27 MG/DL Random Glucose 86 MG/DL Total Protein 6.1 GM/DL Albumin 1.9 GM/DL Calcium Level 9.8 MG/DL Alkaline Phosphatase 89 U/L Aspartate Amino Transf (AST/SGOT) 40 U/L Alanine Aminotransferase (ALT/SGPT) 34 U/L Total Bilirubin 2.0 MG/DL Sodium Level 140 MEQ/L Potassium Level 3.8 MEQ/L Chloride Level 101 MEQ/L Carbon Dioxide Level 35.1 MEQ/L Anion Gap 4 MEQ/L Estimat Glomerular Filtration Rate 40 ML/MIN Lactic Acid Level 0.8 mmol/L Total Creatine Kinase 43 U/L Troponin I 0.09 NG/ML B-Type Natriuretic Peptide 942 PG/ML Free Thyroxine 0.63 NG/DL Free Triiodothyronine (T3) pg/dL 1.00 PG/ML Thyroid Stimulating Hormone 3rd Gen 39.400 uIU/ML Urine Color YELLOW Urine Turbidity CLEAR Urine pH 5.0 Urine Specific [place] 1.011 Urine Protein NEG mg/dL Urine Glucose (UA) NEG mg/dL Urine Ketones NEG mg/dL Urine Occult Blood TRACE Urine Nitrite NEG Urine Bilirubin NEG Urine Urobilinogen 2.0 MG/DL Urine Leukocyte Esterase SMALL Urine RBC 3 /hpf Urine WBC 2 /hpf Urine Squamous Epithelial Cells 3 /hpf Urine Bacteria RARE /hpf Urine Mucus FEW /lpf Urine Yeast (Budding) OCC Microscopic Urinalysis Comment CATH-CULTURE IND MDM Medical Decision Making Medical Screen Exam Complete: Yes Emergency Medical Condition: Yes Medical Record Reviewed: Yes Interpretation(s) Last Impressions Chest X-Ray 12/06/17 2388 Signed Impressions: Service Date/Time: Wednesday, December 06, 2017 14:40 - CONCLUSION: CHF Jaycob Adorno MD Laboratory Tests Test 12/06/17 14:50 4/14/18 16:05 White Blood Count 5.2 TH/MM3 Red Blood Count 4.10 MIL/MM3 Hemoglobin 13.2 GM/DL Hematocrit 39.7 % Mean Corpuscular Volume 96.7 FL Mean Corpuscular Hemoglobin 32.2 PG Mean Corpuscular Hemoglobin Concent 33.3 % Red Cell Distribution Width 16.9 % Platelet Count 154 TH/MM3 Mean Platelet Volume 8.6 FL Neutrophils (%) (Auto) 72.5 % Lymphocytes (%) (Auto) 16.7 % Monocytes (%) (Auto) 7.2 % Eosinophils (%) (Auto) 3.1 % Basophils (%) (Auto) 0.5 % Neutrophils # (Auto) 3.8 TH/MM3 Lymphocytes # (Auto) 0.9 TH/MM3 Monocytes # (Auto) 0.4 TH/MM3 Eosinophils # (Auto) 0.2 TH/MM3 Basophils # (Auto) 0.0 TH/MM3 CBC Comment DIFF FINAL Differential Comment Blood Urea Nitrogen 25 MG/DL Creatinine 1.27 MG/DL Random Glucose 86 MG/DL Total Protein 6.1 GM/DL Albumin 1.9 GM/DL Calcium Level 9.8 MG/DL Alkaline Phosphatase 89 U/L Aspartate Amino Transf (AST/SGOT) 40 U/L Alanine Aminotransferase (ALT/SGPT) 34 U/L Total Bilirubin 2.0 MG/DL Sodium Level 140 MEQ/L Potassium Level 3.8 MEQ/L Chloride Level 101 MEQ/L Carbon Dioxide Level 35.1 MEQ/L Anion Gap 4 MEQ/L Estimat Glomerular Filtration Rate 40 ML/MIN Lactic Acid Level 0.8 mmol/L Total Creatine Kinase 43 U/L Troponin I 0.09 NG/ML B-Type Natriuretic Peptide 942 PG/ML Free Thyroxine 0.63 NG/DL Free Triiodothyronine (T3) pg/dL 1.00 PG/ML Thyroid Stimulating Hormone 3rd Gen 39.400 uIU/ML Urine Color YELLOW Urine Turbidity CLEAR Urine pH 5.0 Urine Specific [place] 1.011 Urine Protein NEG mg/dL Urine Glucose (UA) NEG mg/dL Urine Ketones NEG mg/dL Urine Occult Blood TRACE Urine Nitrite NEG Urine Bilirubin NEG Urine Urobilinogen 2.0 MG/DL Urine Leukocyte Esterase SMALL Urine RBC 3 /hpf Urine WBC 2 /hpf Urine Squamous Epithelial Cells 3 /hpf Urine Bacteria RARE /hpf Urine Mucus FEW /lpf Urine Yeast (Budding) OCC Microscopic Urinalysis Comment CATH-CULTURE IND Differential Diagnosis Edema, hypoalbuminemia, hyponatremia, volume overload, excoriated skin, yeast infection, morbid obesity. Narrative Course IV was established, labs are drawn and sent, and the patient was placed on cardiac telemetry monitoring and continuous pulse oximetry monitoring. I reviewed the patient's EMR, she had hypotension during her previous hospitalization and was actually placed on midodrine. I do not see mid a drain on the patient's medicine reconciliation list from the half-way. The patient's lower extremities were wrapped with Geovanny wrap secondary to significant edema. The patient's wounds related to skin appear to be from skin excoriation from skin on skin contact, patient will need dressings and material to avoid the skin all skin irritation. She may benefit from outpatient wound care evaluation. The patient's troponin is 0.09, however, this is a significant improvement compared to the previous elevated troponin at 3.10 at the end of October. Chest x-ray reveals mild CHF, BNP is elevated in the 900s, but there is no hypoxia or tachycardia. The patient's systolic blood pressure was greater than 100, therefore, the patient received Lasix 40 mg intravenously. TSH is elevated and free T4 and free T3 are low, patient will need an increase in her Synthroid dose. The patient also had her lower extremities wrapped in Geovanny wraps from the feet upwards, will need daily dressing changes of the geovanny wraps to help with her lower extremity edema. The patient will also need wound care for the wounds under the breast and abdomen, there is no evidence of cellulitis , however, they are excoriated secondary to skin on skin contact. I did discuss the findings with family at bedside. The patient will be transferred back to the half-way. Diagnosis Primary Impression: Nonhealing nonsurgical wound limited to breakdown of skin Additional Impressions: Diastolic dysfunction with acute on chronic heart failure Hypothyroidism Qualified Codes: E03.9 - Hypothyroidism, unspecified Hypoalbuminemia Patient Instructions: General Instructions Additional Instructions: You will need an increase in your Synthroid medication by your doctor at the half-way. Please provide the patient a copy of her labs at discharge. Wound care instructions, keep the area under the breast and pannus of the abdomen dry, provide protective dressings to the affected area to avoid skin on skin excoriation. Geovanny wraps to lower extremities until able to wear ITFFANIE hose. Elevate legs. Follow-up with your recorder gravity prospecting. Med/Other Pt SpecificInfo: Existing Med Changed (Increase in Synthroid) Scripts Levothyroxine (Synthroid) 88 Mcg Tab 88 MCG PO DAILY for Thyroid, #30 TAB 0 Refills Prov: Ankush Carson MD 12/06/17 Condition: Stable Ankush Carson MD Dec 06, 2017 14:38
--- NOTE | 2017-12-06 15:05 | RADRPT ---
EXAM DATE/TIME: 12/06/2017 14:40 [facility] COMPARISON: CHEST SINGLE AP, November 25, 2017, 8:45. INDICATIONS : Syncope. MEDICAL HISTORY : Hypothyroidism. Peripheral vascular disease. Congestive heart failure.Afib. Myocardial infarction. Hy percholesterolemia. HTN. Carcinoma, lung.COPD. Dyspnea. GERD. Hiatal hernia. Arthritis. Rheumatoid ar thritis.Osteoporosis. Osteoarthritis. Skin cancer. Depression. Anxiety. SURGICAL HISTORY : Hysterectomy.Thyroidectomy. Cataract surgery. Left lobecotmy. Rightfemur surgery. Right cheek skin ca ncer removal. ENCOUNTER: Initial ACUITY: 1 day PAIN SCORE: Non-responsive. LOCATION: Bilateral chest FINDINGS: Cardiac silhouette is enlarged. There is moderate vascular congestion and interstitial prominence wit h developing alveolar edema and effusions. CONCLUSION: CHF Jaycob Adorno MD on December 06, 2017 at 15:02 Board Certified Radiologist. This report was verified electronically.
[2017-12-06 15:13] LABS: AUTOMATED NEUTROPHIL # 3.8 TH/MM3 (1.8-7.7); BASOPHIL % 0.5 % (0.0-2.0); EOSINOPHIL # 0.2 TH/MM3 (0-0.4); EOSINOPHIL % 3.1 % (0.0-4.0); HEMATOCRIT 39.7 % (35.0-46.0); HEMOGLOBIN 13.2 GM/DL (11.6-15.3); LYMPH % 16.7 % (9.0-44.0); LYMPHOCYTE # 0.9 TH/MM3 (1.0-4.8); MEAN CELL VOLUME 96.7 FL (80.0-100.0); MEAN CORPUSCULAR HEMOGLOBIN 32.2 PG (27.0-34.0); MEAN CORPUSCULAR HGB CONC 33.3 % (32.0-36.0); MEAN PLATELET VOLUME 8.6 FL (7.0-11.0); MONO % 7.2 % (0.0-8.0); MONOCYTE # 0.4 TH/MM3 (0-0.9); NEUT % 72.5 % (16.0-70.0); PLATELET COUNT 154 TH/MM3 (150-450); RED CELL DISTRIBUTION WIDTH 16.9 % (11.6-17.2); WHITE BLOOD COUNT 5.2 TH/MM3 (4.0-11.0)
[2017-12-06] MEDS ORDERED: diphenhydrAMINE HCL 50 MG/ML VIAL IV PUSH ONE (15:30)
[2017-12-06] MEDS ORDERED: SODIUM CHLOR 0.9% 1000 ML INJ 1,000 ML IV SCH (15:30)
[2017-12-06 15:42] LABS: ALBUMIN 1.9 GM/DL (3.4-5.0); ALKALINE PHOSPHATASE 89 U/L (45-117); ALT (GPT) 34 U/L (10-53); AST (GOT) 40 U/L (15-37); BICARBONATE 35.1 MEQ/L (21.0-32.0); BLOOD UREA NITROGEN 25 MG/DL (7-18); CALCIUM 9.8 MG/DL (8.5-10.1); CHLORIDE 101 MEQ/L (98-107); CREATININE 1.27 MG/DL (0.50-1.00); GLOMERULAR FILTRATION RATE 40 ML/MIN (>89); GLUCOSE,RANDOM 86 MG/DL (74-106); SODIUM (NA) 140 MEQ/L (136-145); TOTAL PROTEIN 6.1 GM/DL (6.4-8.2)
[2017-12-06 16:51] LABS: BACTERIA, URINE RARE /hpf; BILIRUBIN, URINE NEG (NEG); BLOOD, URINE TRACE (NEG); GLUCOSE,URINE NEG (NEG); KETONE, URINE NEG (NEG); MUCUS URINE FEW /lpf (OCC); NITRITE,URINE NEG (NEG); SQUAMOUS EPITHELIAL CELL URINE 3 /hpf (0-5); URINE COLOR YELLOW (YELLW/STRAW); URINE LEUKOCYTE ESTERASE SMALL (NEG)
[2017-12-06 17:27] LABS: FREE T4 0.63 NG/DL (0.76-1.46)
[2017-12-06] MEDS ORDERED: FUROSEMIDE 40 MG/4 ML VIAL IV PUSH ONE (17:30)
[2017-12-06] MEDS ORDERED: SYNT88TA PO (17:34)
== END 2017-12-06 18:57 | disposition home or self-care (01) ==
LOC: NEPC 14:14
DX: T81.89XA Other complications of procedures, not elsewhere classified, initial encounter (principal); E03.9 Hypothyroidism, unspecified; E88.09 Other disorders of plasma-protein metabolism, not elsewhere classified; I11.0 Hypertensive heart disease with heart failure; I50.33 Acute on chronic diastolic (congestive) heart failure
CPT/HCPCS: 71045; 80053; 81001; 82550; 83605; 83880; 84439; 84443; 84481; 84484; 85025; 87040; 87077; 87086; 96361; 96374; 99284; J1940; J7050